=== PATIENT | male | born 1930 | race Caucasian/White ===

== ENCOUNTER 2017-03-28 12:33 | Inpatient (IN) | payer MEDICARE, BC ==
--- NOTE | 2017-03-28 12:54 | EDM.PDOC ---
ED HPI GENERAL MEDICAL PROBLEM - General Stated Complaint: ER Time Seen by Provider: 03/28/17 12:40 Source of Information: Reports: EMS History Limitations: Reports: Altered Mental Status - History of Present Illness INITIAL COMMENTS - FREE TEXT/NARRATIVE: This 87 yo male patient was brought to the ED by [facility] from [facility] due to generalized weakness and low oxygen levels. EMS reports the patient had an oxygen saturation of 86% while on 3 liters per minute NC by concentrator. The patient was started on oxygen at 6 liters per minute by NC which brought his oxygen up to 95%. Upon arrival, the patient reports that he has been vomiting over the past couple of days and feeling very weak. The patient denies any specific areas of pain. Onset: Gradual Duration: Day(s):, Constant, Getting Worse Location: Reports: Generalized Severity: Severe Improves with: Reports: None Worsens with: Reports: None Associated Symptoms: Reports: Nausea/Vomiting, Weakness - Related Data Allergies Allergy/AdvReac Type Severity Reaction Status Date / Time aspirin Allergy Bleeding Verified 07/29/16 14:16 Home Meds: Home Meds Digoxin [Lanoxin] 0.125 mg PO DAILY 03/05/14 [History] Metoprolol Succinate 25 mg PO DAILY 03/05/14 [History] Omeprazole 20 mg PO DAILY 03/05/14 [History] Simvastatin [Zocor] 40 mg PO BEDTIME 03/05/14 [History] metFORMIN [Glucophage] 1,000 mg PO BID 03/05/14 [History] [place]-3S/DHA/Epa/Fish Oil [Fish Oil [place]-3 Softgel] 2 tab PO DAILY 04/25/16 [ History] Warfarin Sodium [Jantoven] 5 mg PO ASDIRECTED 06/08/16 [History] Acetaminophen [Tylenol] 1 tab PO QID 07/16/16 [History] fentaNYL [Fentanyl] 25 mcg TOP Q3D 07/16/16 [History] glipiZIDE [Glucotrol XL] 5 mg PO DAILY 07/16/16 [History] Furosemide [Lasix] 20 mg PO DAILY 07/29/16 [History] Hydrocodone/Acetaminophen [[place] 10-325 Tablet] 1 tab PO PRN 07/29/16 [History] Past Medical History HEENT History: Reports: Hard of Hearing, Impaired Vision Cardiovascular History: Reports: Afib, CAD, Heart Failure, High Cholesterol, Hypertension Respiratory History: Reports: None Gastrointestinal History: Reports: GERD Genitourinary History: Reports: Prostate Disorder Musculoskeletal History: Reports: None Neurological History: Reports: None Psychiatric History: Reports: None Endocrine/Metabolic History: Reports: Diabetes, Type II Hematologic History: Reports: None Immunologic History: Reports: None Oncologic (Cancer) History: Reports: None Dermatologic History: Reports: None - Infectious Disease History Infectious Disease History: Reports: None - Past Surgical History Cardiovascular Surgical History: Reports: Coronary Artery Bypass, Pacer Social & Family History - Family History Family Medical History: Noncontributory - Tobacco Use Smoking Status *Q: Never Smoker Second Hand Smoke Exposure: No - Caffeine Use Caffeine Use: Reports: Coffee - Alcohol Use Days Per Week of Alcohol Use: 0 - Recreational Drug Use Recreational Drug Use: No - Living Situation & Occupation Occupation: Retired ED ROS GENERAL - Review of Systems Review Of Systems: ROS reveals no pertinent complaints other than HPI. ED EXAM, GENERAL - Physical Exam Exam: See Below Exam Limited By: Altered Mental Status (very slow in responding) General Appearance: Alert, Moderate Distress, Thin Eye Exam: Bilateral Eye: EOMI, Normal Inspection, PERRL Ears: Normal External Exam, Normal Canal, Hearing Grossly Normal, Normal TMs Nose: Normal Inspection, Normal Mucosa, No Blood Throat/Mouth: Normal Inspection, Normal Lips, Normal Teeth, Normal Gums, Normal Oropharynx, Normal Voice, No Airway Compromise Head: Atraumatic, Normocephalic Neck: Normal Inspection, Supple, Non-Tender, Full Range of Motion Respiratory/Chest: No Respiratory Distress, Lungs Clear, Normal Breath Sounds, No Accessory Muscle Use, Chest Non-Tender, Decreased Breath Sounds Cardiovascular: Normal Peripheral Pulses, Regular Rate, Rhythm, No Gallop, No JVD, No Rub GI/Abdominal: Normal Bowel Sounds, Soft, Tender (generalizd tenderness to palpation) (Male) Exam: Deferred Rectal (Males) Exam: Deferred Back Exam: Normal Inspection, Full Range of Motion, NT Extremities: Normal Inspection, Normal Range of Motion, Non-Tender, Normal Capillary Refill, Pedal Edema Neurological: Alert, Oriented, CN II-XII Intact, Normal Cognition Psychiatric: Normal Affect, Normal Mood Skin Exam: Warm, Dry, Intact, Normal Color, No Rash Lymphatic: No Adenopathy Course - Vital Signs Last Recorded V/S: Last Vital Signs Temp 35.9 C 10/17/17 12:35 Pulse 74 03/28/17 12:35 Resp 40 H 03/28/17 12:35 BP 97/52 L 03/28/17 12:35 Pulse Ox 90 L 03/28/17 12:35 - Orders/Labs/Meds Orders: Active Orders 24 hr Category Date Time Status EKG Documentation Completion [RC] URGENT Care 03/28/17 12:40 Active Glucose [Blood Glucose Check, Bedside] [RC] ONETIME Care 03/28/17 12:59 Active CULTURE BLOOD [BC] Stat Lab 03/28/17 12:40 Received CULTURE BLOOD [BC] Stat Lab 03/28/17 12:45 Received Sodium Chloride 0.9% [Normal Saline] 1,000 ml Med 03/28/17 13:00 Active IV ASDIRECTED Blood Culture x2 Reflex Set [OM.PC] Stat Oth 03/28/17 12:40 Ordered Medication Orders Sodium Chloride (Normal Saline) 1,000 mls @ 250 mls/hr IV ASDIRECTED LISA Last Admin: 03/28/17 12:50 Dose: 250 mls/hr Labs: Laboratory Tests 03/28/17 03/28/17 03/28/17 Range/Units 12:40 12:40 12:40 WBC 23.4 H (5.0-10.0) 10^3/uL RBC 4.03 L (4.6-6.2) 10^6/uL Hgb 13.6 L (14.0-18.0) g/dL Hct 41.0 (40.0-54.0) % MCV 101.7 H D (80-100) fL MCH 33.7 (27.0-34.0) pg MCHC 33.2 (33.0-35.0) g/dL Plt Count 230 (150-450) 10^3/uL Neut % (Auto) 88.1 H (42.2-75.2) % Lymph % (Auto) 5.7 L (20.5-50.1) % [place] % (Auto) 5.8 (2-8) % Eos % (Auto) 0.2 L (1.0-3.0) % Baso % (Auto) 0.2 (0.0-1.0) % PT (9.0-12.0) SEC INR (0.9-1.2) Sodium 136 D (135-145) mmol/L Potassium 5.8 H (3.6-5.0) mmol/L Chloride 98 L (101-111) mmol/L Carbon Dioxide 22.0 (21.0-31.0) mmol/L Anion Gap 21.8 BUN 32 H (7-18) mg/dL Creatinine 1.7 H (0.6-1.3) mg/dL Est Cr Clr Drug Dosing TNP Estimated GFR (MDRD) 38 BUN/Creatinine Ratio 18.82 Glucose 168 H (74-105) mg/dL POC Glucose (83-110) mg/dl Lactic Acid 4.9 H (0.5-2.2) mmol/L Calcium 9.3 (8.4-10.2) mg/dl Total Bilirubin 1.8 H (0.2-1.0) mg/dL AST 57 H (10-42) IU/L ALT 32 (10-60) IU/L Alkaline Phosphatase 70 (42-121) IU/L Troponin I < 0.02 (0.00-0.02) ng/ml B-Natriuretic Peptide (0-100) pg/ml Total Protein 7.9 (6.7-8.2) g/dl Albumin 3.7 (3.2-5.5) g/dl Globulin 4.2 Albumin/Globulin Ratio 0.88 Urine Color (YELLOW) Urine Appearance (CLEAR) Urine pH (5.0-9.0) Ur Specific [place] (1.005-1.030) Urine Protein (NEGATIVE) Urine Glucose (UA) (NEGATIVE) Urine Ketones (NEGATIVE) Urine Occult Blood (NEGATIVE) Urine Nitrite (NEGATIVE) Urine Bilirubin (NEGATIVE) Urine Urobilinogen (0.2-1.0) mg/dL Ur Leukocyte Esterase (NEGATIVE) Urine RBC /HPF Urine WBC (0-5/HPF) /HPF Ur Epithelial Cells /HPF Amorphous Sediment (0/HPF) /HPF Urine Bacteria (0-FEW/HPF) /HPF Fine Granular Casts (0/LPF) /LPF 03/28/17 03/28/17 03/28/17 Range/Units 12:40 12:40 12:46 WBC (5.0-10.0) 10^3/uL RBC (4.6-6.2) 10^6/uL Hgb (14.0-18.0) g/dL Hct (40.0-54.0) % MCV (80-100) fL MCH (27.0-34.0) pg MCHC (33.0-35.0) g/dL Plt Count (150-450) 10^3/uL Neut % (Auto) (42.2-75.2) % Lymph % (Auto) (20.5-50.1) % Lan[place] % (Auto) (2-8) % Eos % (Auto) (1.0-3.0) % Baso % (Auto) (0.0-1.0) % PT 34.2 H (9.0-12.0) SEC INR 3.4 H (0.9-1.2) Sodium (135-145) mmol/L Potassium (3.6-5.0) mmol/L Chloride (101-111) mmol/L Carbon Dioxide (21.0-31.0) mmol/L Anion Gap BUN (7-18) mg/dL Creatinine (0.6-1.3) mg/dL Est Cr Clr Drug Dosing Estimated GFR (MDRD) BUN/Creatinine Ratio Glucose (74-105) mg/dL POC Glucose 154 H (83-110) mg/dl Lactic Acid (0.5-2.2) mmol/L Calcium (8.4-10.2) mg/dl Total Bilirubin (0.2-1.0) mg/dL AST (10-42) IU/L ALT (10-60) IU/L Alkaline Phosphatase (42-121) IU/L Troponin I (0.00-0.02) ng/ml B-Natriuretic Peptide 459 H (0-100) pg/ml Total Protein (6.7-8.2) g/dl Albumin (3.2-5.5) g/dl Globulin Albumin/Globulin Ratio Urine Color (YELLOW) Urine Appearance (CLEAR) Urine pH (5.0-9.0) Ur Specific [place] (1.005-1.030) Urine Protein (NEGATIVE) Urine Glucose (UA) (NEGATIVE) Urine Ketones (NEGATIVE) Urine Occult Blood (NEGATIVE) Urine Nitrite (NEGATIVE) Urine Bilirubin (NEGATIVE) Urine Urobilinogen (0.2-1.0) mg/dL Ur Leukocyte Esterase (NEGATIVE) Urine RBC /HPF Urine WBC (0-5/HPF) /HPF Ur Epithelial Cells /HPF Amorphous Sediment (0/HPF) /HPF Urine Bacteria (0-FEW/HPF) /HPF Fine Granular Casts (0/LPF) /LPF 03/28/17 Range/Units 14:32 WBC (5.0-10.0) 10^3/uL RBC (4.6-6.2) 10^6/uL Hgb (14.0-18.0) g/dL Hct (40.0-54.0) % MCV (80-100) fL MCH (27.0-34.0) pg MCHC (33.0-35.0) g/dL Plt Count (150-450) 10^3/uL Neut % (Auto) (42.2-75.2) % Lymph % (Auto) (20.5-50.1) % [place] % (Auto) (2-8) % Eos % (Auto) (1.0-3.0) % Baso % (Auto) (0.0-1.0) % PT (9.0-12.0) SEC INR (0.9-1.2) Sodium (135-145) mmol/L Potassium (3.6-5.0) mmol/L Chloride (101-111) mmol/L Carbon Dioxide (21.0-31.0) mmol/L Anion Gap BUN (7-18) mg/dL Creatinine (0.6-1.3) mg/dL Est Cr Clr Drug Dosing Estimated GFR (MDRD) BUN/Creatinine Ratio Glucose (74-105) mg/dL POC Glucose (83-110) mg/dl Lactic Acid (0.5-2.2) mmol/L Calcium (8.4-10.2) mg/dl Total Bilirubin (0.2-1.0) mg/dL AST (10-42) IU/L ALT (10-60) IU/L Alkaline Phosphatase (42-121) IU/L Troponin I (0.00-0.02) ng/ml B-Natriuretic Peptide (0-100) pg/ml Total Protein (6.7-8.2) g/dl Albumin (3.2-5.5) g/dl Globulin Albumin/Globulin Ratio Urine Color Yellow (YELLOW) Urine Appearance Slightly cloudy (CLEAR) Urine pH 5.5 (5.0-9.0) Ur Specific [place] 1.015 (1.005-1.030) Urine Protein 30 H (NEGATIVE) Urine Glucose (UA) Negative (NEGATIVE) Urine Ketones Trace H (NEGATIVE) Urine Occult Blood Negative (NEGATIVE) Urine Nitrite Negative (NEGATIVE) Urine Bilirubin Small H (NEGATIVE) Urine Urobilinogen 2.0 H (0.2-1.0) mg/dL Ur Leukocyte Esterase Negative (NEGATIVE) Urine RBC 5-10 H /HPF Urine WBC 0-5 (0-5/HPF) /HPF Ur Epithelial Cells Rare /HPF Amorphous Sediment Few (0/HPF) /HPF Urine Bacteria Few (0-FEW/HPF) /HPF Fine Granular Casts Few H (0/LPF) /LPF Meds: Medications Generic Name Dose Route Start Last Admin Trade Name Freq PRN Reason Stop Dose Admin Sodium Chloride 1,000 mls @ 250 mls/hr 03/28/17 13:00 03/28/17 12:50 Normal Saline IV 250 mls/hr ASDIRECTED LISA Administration - Re-Assessments/Exams Free Text/Narrative Re-Assessment/Exam: 03/28/17 13:44 The patient had a large loose bowel movement while in the ED. Nursing staff assisted the patient in cleaning up. Departure - Departure Time of Disposition: 15:02 Disposition: Admitted As Inpatient 67 Condition: Poor Clinical Impression: Gastroenteritis, Hyperkalemia - Discharge Information Care Plan Goals: Discussed the patient's history, labs, EKG, CT and x-ray results with Dr. Fish. Dr. Fish accepted the patient for continued evaluation and further management as an inpatient at [facility] in [place]. - My Orders Last 24 Hours: My Active Orders 03/28/17 12:40 EKG Documentation Completion [RC] URGENT CULTURE BLOOD [BC] Stat Blood Culture x2 Reflex Set [OM.PC] Stat 03/28/17 12:45 CULTURE BLOOD [BC] Stat 03/28/17 12:59 Glucose [Blood Glucose Check, Bedside] [RC] ONETIME 03/28/17 13:00 Sodium Chloride 0.9% [Normal Saline] 1,000 ml IV ASDIRECTED - Assessment/Plan Last 24 Hours: My Active Orders 03/28/17 12:40 EKG Documentation Completion [RC] URGENT CULTURE BLOOD [BC] Stat Blood Culture x2 Reflex Set [OM.PC] Stat 03/28/17 12:45 CULTURE BLOOD [BC] Stat 03/28/17 12:59 Glucose [Blood Glucose Check, Bedside] [RC] ONETIME 03/28/17 13:00 Sodium Chloride 0.9% [Normal Saline] 1,000 ml IV ASDIRECTED
[2017-03-28] MEDS ORDERED: Sodium Chloride 0.9% 1,000 ML IV SCH (13:00)
[2017-03-28 13:18] LABS: CHLORIDE,CL 98 mmol/L (101-111); SODIUM,NA 136 mmol/L (135-145)
[2017-03-28] MEDS ORDERED: Furosemide 20 MG/2 ML VIAL IVPUSH ONE (17:11)
[2017-03-28] MEDS: Sodium Chloride 0.9% 1,000 ML IV SCH (17:38)
[2017-03-28] MEDS ORDERED: [UNRECOGNIZED DRUG - REMARK] PO ONE (18:00)
[2017-03-28] MEDS ORDERED: Ondansetron 4 MG/2 ML SDV IV PRN (19:04)
[2017-03-28] MEDS: Acetaminophen 325 MG Tab PO SCH (21:00)
[2017-03-28] MEDS: Metoprolol Tartrate 25 MG Tab PO SCH (21:03)
[2017-03-28] MEDS: Gabapentin 100 MG Cap PO SCH (21:03)
[2017-03-29] MEDS ORDERED: Sodium Chloride 0.9% 1,000 ML IV ONE ×2 (03:17→04:23)
[2017-03-29] MEDS ORDERED: Albumin 5% 250 ML IV ONE ×2 (04:56→08:00)
[2017-03-29] MEDS: Sodium Chloride 0.9% 1,000 ML IV SCH ×2 (05:36→17:17)
[2017-03-29] MEDS ORDERED: Sodium Chloride 0.9% 1,000 ML IV SCH (10:00)
[2017-03-29] MEDS: Furosemide 20 MG/2 ML VIAL IVPUSH SCH (10:07)
[2017-03-29] MEDS: Metoprolol Tartrate 25 MG Tab PO SCH (10:15)
[2017-03-29] MEDS: DULoxetine 30 MG Cap PO SCH (10:16)
[2017-03-29] MEDS: Gabapentin 100 MG Cap PO SCH ×2 (10:16→15:12)
[2017-03-29] MEDS: Omeprazole 20 MG Cap.CR PO SCH (10:16)
[2017-03-29] MEDS: Acetaminophen 325 MG Tab PO SCH ×2 (10:16→15:12)
[2017-03-29] MEDS ORDERED: Loperamide 2 MG Cap PO PRN (10:23)
[2017-03-29] MEDS ORDERED: Sodium Chloride 0.9% 500 ML IV ONE ×2 (10:30→11:30)
[2017-03-29] MEDS: Ciprofloxacin in D5W 400 MG in Premix Bag 1 BAG IV SCH ×2 (11:16)
[2017-03-29] MEDS: metroNIDAZOLE/Normal Saline 500 MG in Premix Bag 100 BAG IV SCH ×2 (11:16→17:18)
--- NOTE | 2017-03-29 13:20 | PN ---
DOS: 03/29/2017 HISTORY OF PRESENT ILLNESS: Mr. Kenan Glaser is an 87-year-old man, admitted from [facility] with weakness, diarrhea, nausea, and vomiting. He was found to be hypoxic on 3 L/minute of oxygen. The patient later became severely hypotensive, was having profuse diarrhea. He was admitted. REVIEW OF SYSTEMS: The patient indicated that he feels better. He denies abdominal pain. No longer vomiting, but still has some diarrhea. No chest pain. No fever. OBJECTIVE: General: The patient is alert and oriented to place, time, and person. Head: Atraumatic and normocephalic. Chest: Diminished breath sounds bilaterally. Cardiovascular System: Regular rate and rhythm. The patient is hypotensive. Abdomen: Vague discomfort on palpation. No rebound tenderness. Extremities: 1+ pedal edema. Vital Signs: Reviewed. Blood pressure is low, systolic now between 80 and 110. LABORATORY DATA: Lactate was 4.9, but it is now down to 2.6. INR is 3.3. White count is 16.5. CT scan of abdomen reviewed, showed possible colitis. There is [id number] nonspecific changes in the large and small bowel, was suggestive of viral enterocolitis or other infectious enterocolitis. ASSESSMENT: 1. Sepsis. The patient is hypotensive. Has elevated serum lactate. Has marked leukocytosis. Because of the sepsis, another differential diagnosis includes Clostridium difficile colitis given the elevated white cell count. Could also be viral gastroenteritis. 2. Colitis. The patient has nausea, vomiting, and diarrhea. CT scan suggest enterocolitis, possibly viral. It could also be Clostridium difficile. 3. Chronic anticoagulation. INR is supratherapeutic at 3.3. 4. History of congestive heart failure. Clinically, the patient is quite hypotensive at this point. Does have some edema. Will need to be hydrated cautiously. 5. History of hypertension. Hypotensive at this point. 6. Atrial fibrillation, rate controlled. 7. Dyslipidemia. 8. Diabetes mellitus. Blood sugar is within acceptable limit. PLAN: 1. Stool for Clostridium difficile toxin pending. 2. Start the empiric antibiotics, intravenous ciprofloxacin and intravenous Flagyl. 3. Obtain repeat serum lactate every 3 hours. 4. Intravenous fluid bolus given 2.5 L. we will go ahead and give another liter. This needs to be done cautiously because of his history of CHF. He has had low threshold for transferring this patient to a higher level of care. [facility] /[id number]
[2017-03-29] MEDS: Midodrine 2.5 MG Tab PO SCH ×2 (15:58→17:17)
[2017-03-29] MEDS ORDERED: Furosemide 40 MG/4 ML VIAL IVPUSH ONE (23:03)
[2017-03-30] MEDS: Gabapentin 100 MG Cap PO SCH ×4 (00:19→20:28)
[2017-03-30] MEDS: Ciprofloxacin in D5W 400 MG in Premix Bag 1 BAG IV SCH ×4 (00:19→08:32)
[2017-03-30] MEDS: Acetaminophen 325 MG Tab PO SCH ×4 (00:19→20:28)
[2017-03-30] MEDS: metroNIDAZOLE/Normal Saline 500 MG in Premix Bag 100 BAG IV SCH ×3 (01:27→17:11)
[2017-03-30] MEDS: fentaNYL 25 MCG/HR Transdermal Patch TOP SCH (07:58)
[2017-03-30] MEDS: CHECK FENTANYL TRDERM SCH (08:01)
[2017-03-30] MEDS: Furosemide 20 MG/2 ML VIAL IVPUSH SCH (08:30)
[2017-03-30] MEDS: DULoxetine 30 MG Cap PO SCH (08:37)
[2017-03-30] MEDS: Midodrine 2.5 MG Tab PO SCH ×3 (08:37→17:09)
[2017-03-30] MEDS: Omeprazole 20 MG Cap.CR PO SCH (08:38)
--- NOTE | 2017-03-30 09:53 | HP ---
CHIEF COMPLAINT: Vomiting and diarrhea. BRIEF HISTORY OF PRESENT ILLNESS: Mr. Glaser is an 87-year-old gentleman who resides at the [facility]. He presented to the emergency room because of generalized weakness. The staff at [facility] had noted that his oxygen saturations were low, and he was placed on supplemental oxygen with improvement. On arrival, the patient stated he had been vomiting, and for the last couple of days, he was feeling weak. He denied any other symptoms of concern. While he was being taken to Radiology for CAT scan, he suddenly had voluminous loose watery stools. His presentation was reviewed with the ER provider, and Mr. Glaser was admitted for further management. PAST MEDICAL HISTORY: Atrial fibrillation. Coronary artery disease with 5- vessel bypass as well as an NSTEMI. Type 2 diabetes, which apparently is diet controlled at this time. Dyslipidemia. Diverticulosis. GERD. Congestive heart failure. Pulmonary interstitial fibrosis. Status post cardiac pacemaker placement. Multiple compression fractures. Osteoporosis. Hyponatremia. PAST SURGICAL HISTORY: Five-vessel coronary artery bypass graft and cholecystectomy. SOCIAL HISTORY: He is . His approximately a year and a half ago. He then moved from their farm in the [facility] to the [facility]. 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 He has 4 children, 1 son is and has 2 living sons and 1 daughter, 6 grandchildren, and 2 great grandchildren. He is an ex-smoker who stopped smoking in May . Prior to that, he had smoked 1 pack a day for 10 years. Does not drink alcohol on a regular basis. IMMUNIZATION HISTORY: PCV13 on 11/27/2015. High-dose influenza on 03/15/2016. REVIEW OF SYSTEMS: Although in the ER, he had said he felt well, he had felt unwell for several days. On arrival on the floor, he said that he felt well until this morning. He has vomited about 4 to 5 times over the course of the day. He said he usually tends toward constipation, but after arrival in the ER, he has had multiple voluminous watery stools. He denied any chest pain or shortness of breath. He denied any abdominal pain. No blood by mouth or rectum. No recent falls or injuries. Denied any recent use of antibiotics. No change in appetite or weight. No recent change in bowel or bladder habits until today. No dysuria. In the Emergency Department, a Blake catheter was placed, and as of 6:00 p.m., he had 175 mL out following a 1 L fluid bolus. PHYSICAL EXAMINATION: General: He is an elderly gentleman, who was dozing but awoke easily. He was confused at times, somewhat disoriented, but asked where he was. He denied pain at the time of the interview. He otherwise was stable. Vital Signs: Blood pressure 104/45 on the left, 95/53 on the right; pulse 67 and regular; respiratory rate 20 and unlabored; oxygen saturation 95% on 2 L; and temperature was 98.1. Weight 164 pounds 3.2 ounces. Height 6 feet. HEENT: Unremarkable. Neck was supple. No meningeal signs. Sclerae were not icteric. Conjunctivae were not injected. Mouth showed moist mucous membranes. Neck: Showed no JVDs or bruits. There was no adenopathy. No thyromegaly. Chest: Showed clear but diminished bilateral breath sounds without wheezes, rales, or rhonchi. Heart: Showed a regular rate and rhythm with a holosystolic murmur. Abdomen: Soft with hypoactive bowel sounds. There was some diffuse mild tenderness in the upper abdomen without guarding or rebound. Extremities: Showed some mild pitting edema. Peripheral pulses were palpable. Neurological Exam: He is grossly intact. PERTINENT LABS AND X-RAYS: CBC showed an elevated white count of 23.4, hemoglobin and hematocrit 13.6 and 41 with an MCV of 101.7, platelets were 230,000. INR was elevated at 3.4. Chemistry showed sodium 136 and potassium 5.8. He has had elevated potassiums in the past as well. BUN and creatinine 32 and 1.7 with a GFR of 38. These numbers were essentially unchanged from a previous visit. Nonfasting blood sugar 168, on repeat 154. Total bilirubin 1.8. AST was slightly elevated at 57. Otherwise, remainder of the LFTs were unremarkable. Troponin was less than 0.02. BNP was mildly elevated at 459. Lactic acid was elevated at 4.9 (0.5-2.2). Urinalysis showed slightly cloudy yellow urine with specific gravity of 1.015. Negative for nitrites and leukocyte esterase. There were 5 to 10 rbc's per high- power field, 0 to 5 wbc's per high-power field, and few bacteria. Two sets of blood cultures were ordered and drawn. Single-view chest x-ray had been performed in the Emergency Department and showed pulmonary vascular congestion with perihilar edema, but no acute infiltrates. A 12-lead EKG showed a ventricular paced rhythm with a ventricular rate of 68. Left axis deviation. No other comments are made. A CT scan of the abdomen and pelvis was performed without the use of IV contrast. There were multiple dilated loops of large and small intestine. Dilated small bowel loops were present from the upper abdomen to the lower pelvis. Large intestine was filled with fluid and gas rather than stool. There were gas-fluid levels. There was no specific transition point or obstructing lesion identified. There is no evidence for any other acute process. There was left inguinal hernia with a corner of the urinary bladder within the inguinal canal. There were bilateral pleural effusions. Impression was that of mild-to- moderate nonspecific changes to the large and small intestines, which probably represented viral enterocolitis or other infectious enteritis/colitis. IMPRESSION: An 87-year-old gentleman with past medical history as above, presents with an illness of recent onset consisting of several episodes of vomiting over the course of the day and now with large voluminous watery stools. PLAN: 1. In the Emergency Department, he had received 1 L of normal saline. IV fluids were continued with normal saline at 50 mL an hour. We will carefully monitor his urinary output. Because of his history of congestive heart failure and the x-ray evidence for some mild pulmonary venous congestion, he was given furosemide 20 mg IV push after he was admitted to the floor and then he will continue on 20 mg IV push daily. We will carefully monitor his electrolytes. 2. His usual medications will be continued. 3. He is on Coumadin and INR is elevated. No additional pharmacological VTE prophylaxis will be added. We will check the Coumadin on a daily basis, and Pharmacy will dose the Coumadin. 4. He later complained of some mild nausea and orders written for ondansetron 4 mg IV every 6 hours p.r.n. 5. Repeat lab work was ordered for the morning including a CBC with differential and a BMP. We will repeat the lactic acid as well. 6. Multiple stool studies were ordered including C. difficile, stool culture, E. coli culture, H. pylori, Hemoccult, stool culture with Shigella toxin, and fecal lactoferrin. The only test which had returned this evening was the Hemoccult, which returned positive. The result is nonspecific. At the time of admission, he was not immediately started on an antibiotic until there was more proof of infectious illness. I did speak to the incoming hospitalist about this. We had debated starting Cipro and Flagyl at the time of admission, but preferred to postpone this until we had more clinical data. I spoke with the hospitalist, and he will start the patient on IV antibiotics. Code status was discussed directly with Mr. Glaser, and he does not wish any cardiopulmonary resuscitation or transfer at this time. Order was written for DNR/DNI code status. CONDITION AT THE TIME OF ADMISSION: Relatively stable. Multiple labs remain outstanding to further help define this acute gastrointestinal illness. [facility] /[id number]
--- NOTE | 2017-03-30 12:40 | PN ---
DATE: 03/30/2017 SUBJECTIVE: The patient did have some shortness of breath, they had him placed on supplemental oxygen, was tachypneic. Developed bilateral lower extremity edema. No fever. His blood pressure continues to be borderline. REVIEW OF SYSTEMS: Constitutional, cardiac, respiratory, gastrointestinal, and genitourinary system were reviewed. No other pertinent findings. OBJECTIVE: General: The patient is alert, oriented to place, time, and person. Head: Atraumatic and normocephalic. Ears, Nose, and Throat: Unremarkable. Chest: Diminished breath sounds bilaterally. Crackles. Cardiovascular System: Regular rate and rhythm. Abdomen: Soft, nontender. Extremities: Bilateral lower extremity edema. LABORATORY DATA: Serum lactate is elevated at 2.4. Microbiology, stool cultures growing gram-positive cocci in clusters, thought to be possibly Staph aureus. ASSESSMENT: 1. Sepsis. This is likely secondary to gastrointestinal illness. Stool for Clostridium difficile toxin is negative. 2. Colitis. Noted on CT scan. This is probably due to bacterial colitis. Stool cultures growing Staphylococcus aureus, which is a cause of colitis. 3. Chronic anticoagulation. INR is therapeutic. 4. Hypertension. 5. Acute exacerbation of congestive heart failure. This is likely iatrogenic. He probably has diastolic congestive heart failure. 6. Atrial fibrillation. Rate is controlled. 7. Dyslipidemia. 8. Diabetes mellitus. Blood sugar is reasonable. PLAN: 1. Discontinue ciprofloxacin. 2. Continue Flagyl for now. 3. Add intravenous vancomycin. 4. Discontinue IV fluids. 5. Start intravenous Lasix 20 mg daily. 6. Obtain repeat basic metabolic panel. 7. Obtain repeat CBC. Discussed with family. 8. Check serum lactate. [facility] /[id number]
[2017-03-30] MEDS ORDERED: Warfarin 5 MG Tab PO ONE (14:00)
[2017-03-31] MEDS: metroNIDAZOLE/Normal Saline 500 MG in Premix Bag 100 BAG IV SCH ×4 (01:02→17:16)
[2017-03-31] MEDS: Omeprazole 20 MG Cap.CR PO SCH (05:51)
[2017-03-31 06:33] LABS: CHLORIDE,CL 103 mmol/L (101-111); SODIUM,NA 135 mmol/L (135-145)
[2017-03-31] MEDS: DULoxetine 30 MG Cap PO SCH (08:48)
[2017-03-31] MEDS: Midodrine 2.5 MG Tab PO SCH ×4 (08:48→17:15)
[2017-03-31] MEDS: Gabapentin 100 MG Cap PO SCH ×3 (08:49→22:48)
[2017-03-31] MEDS: Acetaminophen 325 MG Tab PO SCH ×3 (08:50→22:48)
[2017-03-31] MEDS: Sodium Chloride 0.9% 10 ML Syringe FLUSH PRN ×4 (08:51→17:06)
[2017-03-31] MEDS: Furosemide 20 MG/2 ML VIAL IVPUSH SCH (08:51)
[2017-03-31] MEDS ORDERED: Furosemide 20 MG/2 ML VIAL IVPUSH ONE (09:36)
--- NOTE | 2017-03-31 11:19 | PN ---
DATE: 03/31/2017 SUBJECTIVE: The patient appears short of breath this morning. Worse with activity. Still needing supplemental oxygen. He is a little tachypneic. No significant cough. Had 1 loose stool. Appears weak. REVIEW OF SYSTEMS: Constitutional, cardiac, respiratory, gastrointestinal, genitourinary, neurologic, psychiatric were reviewed. No other pertinent findings. OBJECTIVE: Vital Signs: Blood pressure is 129/66, pulse 86 per minute, respiratory rate 24 per minute, and oxygen saturation is 95% on 2 L. General: The patient is alert, oriented to place, time, and person. Head: Atraumatic and normocephalic. Chest: Diminished breath sounds bilaterally. He has crackles at the lung bases. CVS: Regular rate and rhythm. Abdomen: Vague discomfort on palpation. No rebound tenderness. Extremities: Trace edema. LABORATORY DATA: White count is down to 7.7, hemoglobin 9.6, INR is 1.9. Lactate is normal at 1.2. ASSESSMENT: 1. Sepsis. Likely due to gastrointestinal illness. Stool for clostridium difficile toxin is negative. Stool culture is growing beta-hemolytic Gram positive cocci, likely Staph aureus. 2. Colitis. Probably due to bacterial colitis. Again, stool culture is growing Staphylococcus aureus. It is unclear if this overlays Methicillin- resistant Staphylococcus aureus or not. 3. Chronic anticoagulation, INR is therapeutic. 4. Hypertension. Blood pressure is within normal limits. 5. Acute exacerbation of probably diastolic congestive heart failure. The patient is decompensated from iatrogenic fluid administration. 6. Atrial fibrillation. Rate is controlled. 7. Dyslipidemia. 8. Diabetes mellitus. Blood sugar is reasonable. PLAN: 1. Discontinue . 2. Start patient on general diet. 3. Physical therapy. 4. Occupational therapy. 5. Increase intravenous Lasix to 40 mg every 24 hours. 6. Give extra 20 mg of Lasix now. 7. Obtain repeat basic metabolic panel. 8. For now I will keep the patient on vancomycin and Flagyl until I get further identification of the Staph aureus. I would like to keep the patient on Flagyl to cover for colitis for now. [facility] /[id number]
[2017-03-31] MEDS ORDERED: Warfarin 5 MG Tab PO ONE (14:00)
[2017-04-01] MEDS: metroNIDAZOLE/Normal Saline 500 MG in Premix Bag 100 BAG IV SCH (01:44)
[2017-04-01] MEDS: Omeprazole 20 MG Cap.CR PO SCH (06:03)
[2017-04-01 06:24] LABS: CHLORIDE,CL 101 mmol/L (101-111); SODIUM,NA 136 mmol/L (135-145)
[2017-04-01] MEDS: Furosemide 40 MG/4 ML VIAL IVPUSH SCH (08:46)
[2017-04-01] MEDS: Sodium Chloride 0.9% 10 ML Syringe FLUSH PRN (08:46)
[2017-04-01] MEDS: Acetaminophen 325 MG Tab PO SCH ×3 (08:47→21:42)
[2017-04-01] MEDS: Midodrine 2.5 MG Tab PO SCH (08:49)
[2017-04-01] MEDS: Gabapentin 100 MG Cap PO SCH ×3 (08:49→21:43)
[2017-04-01] MEDS: DULoxetine 30 MG Cap PO SCH (08:49)
[2017-04-01] MEDS ORDERED: Potassium Chloride 10 MEQ Tab.ER PO ONE (09:04)
[2017-04-01] MEDS: metroNIDAZOLE 250 MG Tab PO SCH ×2 (09:48→17:36)
[2017-04-01] MEDS: Doxycycline 100 MG Cap PO SCH ×2 (09:49→21:42)
--- NOTE | 2017-04-01 11:11 | PN ---
DATE: 04/01/2017 SUBJECTIVE: The patient offers no new complaints today. Still needing supplemental oxygen. He is still on 2 L/min. Shortness of breath is better. Diarrhea has improved. Still weak. REVIEW OF SYSTEMS: Respiratory, gastrointestinal, cardiac, neurologic, and psychiatric reviewed. No other pertinent findings except as noted above. OBJECTIVE: General: Alert and oriented to place, time, and person. Head: Atraumatic and normocephalic. Chest: Diminished breath sounds bilaterally. Crackles at the lung bases, especially at the left side. Cardiovascular System: Regular rate and rhythm. Abdomen: Soft and nontender. Extremities: No significant edema. LABORATORY DATA: White count is normal. INR is normal. He is therapeutic at 2.3 today. ASSESSMENT: 1. Sepsis, likely due to gastrointestinal illness. Stool culture grew beta- hemolytic Gram-positive cocci, likely Staphylococcus aureus. 2. Colitis. It is likely bacterial colitis. 3. Chronic anticoagulation. INR is therapeutic. 4. Hypertension. Blood pressure is within acceptable limit. 5. Acute exacerbation of diastolic congestive heart failure. The patient was decompensated as a result of iatrogenic air-fluid administration. 6. Atrial fibrillation. 7. Dyslipidemia. PLAN: 1. Discontinue intravenous vancomycin. 2. Discontinue intravenous Flagyl. 3. Start oral Flagyl 500 mg three times a day. 4. Start doxycycline 100 mg b.i.d. 5. Physical therapy. 6. Occupational therapy. 7. Remove Blake catheter. 8. Continue intravenous fluids for now. 9. Chart reviewed. Discussed with the emergency room provider. [facility] /[id number]
[2017-04-01] MEDS ORDERED: Warfarin 5 MG Tab PO ONE (14:00)
[2017-04-02] MEDS: metroNIDAZOLE 250 MG Tab PO SCH ×3 (00:15→17:17)
[2017-04-02] MEDS: CHECK FENTANYL TRDERM SCH (06:27)
[2017-04-02] MEDS: fentaNYL 25 MCG/HR Transdermal Patch TOP SCH (06:27)
[2017-04-02] MEDS: Omeprazole 20 MG Cap.CR PO SCH (06:30)
[2017-04-02] MEDS: Acetaminophen 325 MG Tab PO SCH ×3 (08:25→20:48)
[2017-04-02] MEDS: Doxycycline 100 MG Cap PO SCH ×2 (08:25→20:48)
[2017-04-02] MEDS: Gabapentin 100 MG Cap PO SCH ×3 (08:25→20:47)
[2017-04-02] MEDS: DULoxetine 30 MG Cap PO SCH (08:25)
[2017-04-02] MEDS: Furosemide 40 MG/4 ML VIAL IVPUSH SCH (08:26)
[2017-04-02] MEDS: Sodium Chloride 0.9% 10 ML Syringe FLUSH PRN ×2 (08:30→20:59)
--- NOTE | 2017-04-02 11:08 | PN ---
DATE: 04/02/2017 SUBJECTIVE: Today, the patient offers no new complaints. Still needing supplemental oxygen, but down to 1 L/minute. Denies shortness of breath except when he ambulates for long distance. He is still weak. Has trouble getting out of bed. REVIEW OF SYSTEMS: Cardiac, gastrointestinal, respiratory, neurologic and psychiatric are reviewed. OBJECTIVE: General: Alert and oriented to place, time, and person. HEENT: Head is atraumatic and normocephalic. Chest: Diminished breath sounds bilaterally. Crackles in the lung bases. CVS: Regular rate and rhythm. Abdomen: Soft and nontender. Extremities: Trace edema. LABORATORY DATA: INR is therapeutic. ASSESSMENT: 1. Sepsis. This is likely due to gastrointestinal illness. Blood cultures have been negative. Stool culture grew out org that looks like Staph. 2. Colitis. Stool for clostridium difficile toxin was negative, likely bacterial colitis. 3. Chronic anticoagulation. INR is therapeutic today. 4. Hypertension. Blood pressure is within acceptable limits. 5. Acute exacerbation of congestive heart failure. This was secondary to iatrogenic fluid administration. 6. Atrial fibrillation. 7. Dyslipidemia. PLAN: 1. Continue intravenous Lasix. 2. Obtain basic metabolic panel. 3. CBC. 4. Continue antibiotics for now. 5. Physical Therapy. 6. Occupational therapy. [facility] /[id number] MTDD
[2017-04-02] MEDS ORDERED: Warfarin 5 MG Tab PO ONE (14:00)
[2017-04-03] MEDS: metroNIDAZOLE 250 MG Tab PO SCH ×2 (00:05→08:44)
[2017-04-03] MEDS: Omeprazole 20 MG Cap.CR PO SCH (06:12)
[2017-04-03 06:36] LABS: CHLORIDE,CL 98 mmol/L (98-109); SODIUM,NA 139 mmol/L (138-146)
[2017-04-03 08:43] VITALS: BP 109/59
[2017-04-03] MEDS: Sodium Chloride 0.9% 10 ML Syringe FLUSH PRN (08:43)
[2017-04-03] MEDS: Furosemide 40 MG/4 ML VIAL IVPUSH SCH (08:44)
[2017-04-03] MEDS: Gabapentin 100 MG Cap PO SCH (08:44)
[2017-04-03] MEDS: Doxycycline 100 MG Cap PO SCH (08:45)
[2017-04-03] MEDS: DULoxetine 30 MG Cap PO SCH (08:45)
[2017-04-03] MEDS: Acetaminophen 325 MG Tab PO SCH (08:45)
--- NOTE | 2017-04-03 12:21 | EKG ---
03/28/2017 - MACHELLE LEIGH - This 12-lead EKG shows a ventricular paced complex and left axis deviation. No further comments are made. [facility] /[id number]
--- NOTE | 2017-04-04 03:22 | DISCH ---
FINAL DIAGNOSES: 1. Sepsis likely due to colitis. 2. Acute colitis suspected to be bacterial. 3. Chronic anticoagulation. 4. Hypertension. 5. Acute exacerbation of diastolic congestive heart failure. 6. Atrial fibrillation. 7. Dyslipidemia. SUMMARY OF HOSPITAL COURSE: Mr. Kenan Glaser presented with abdominal pain, profuse diarrhea, and generalized weakness. He was found to have significant leukocytosis. White count of 24,000. His lactate was also elevated up to 4.7. The patient got admitted to the hospital with sepsis thought to be due to colitis. He continued to be hypotensive and received a lot of intravenous fluids. He received more than 4 L of fluids. He also received intravenous albumin and eventually his blood pressure did improve. We will start the patient on intravenous antibiotics, ciprofloxacin and Flagyl. Stool for C difficile toxin was negative as well as ova and parasite. His stool culture however, came back positive with beta-hemolytic Gram-positive cocci suspected to be Staph aureus. Because of this, we had the patient on intravenous vancomycin and later switched to doxycycline. His diarrhea has subsided. The abdominal pain has improved. He has remained afebrile. We did obtain a chest x-ray and there was no evidence of pneumonia. Blood cultures have also remained negative. The patient's symptoms have improved. However, he is still weak and still requiring oxygen supplementation. Because of aggressive intravenous fluid administration, the patient became fluid overloaded. We had to put him back on intravenous Lasix. His requirement of oxygen is decreasing. The patient is having side effects from the medications especially Flagyl. He does have nausea, intermittently throws up after taking that medication. Because of that, we have discontinued it. I will discharge the patient from the hospital, and he will be admitted to swing bed. We will monitor the patient closely to make sure that he does not have recurrence of symptoms. All antibiotics will be discontinued at this point. His white cell count is back to normal. PHYSICAL EXAMINATION: General: At discharge, the patient is alert, oriented to place, time, and person. Head: Atraumatic and normocephalic. Chest: Diminished breath sounds bilaterally. Few crackles at the lung bases. CVS: Regular rate and rhythm. Abdomen: Soft, nontender. Extremities: No edema. [facility] /[id number] ANIYAH
[2017-04-04] MEDS ORDERED: Furosemide 40 MG Tab PO SCH (09:00)
== END 2017-04-03 09:17 | disposition swing bed (61) | DRG 872 ==
LOC: DL.ED 12:33 → UNDOADMIN 15:08 → DL.MS 15:08
PROVIDERS: ADMIT Internal Medicine; ATTEND Internal Medicine
DX: E87.6 Hypokalemia (principal); K52.9 Noninfective gastroenteritis and colitis, unspecified; A41.9 Sepsis, unspecified organism; I25.810 Atherosclerosis of coronary artery bypass graft(s) without angina pectoris; A04.8 Other specified bacterial intestinal infections; B95.61 Methicillin susceptible Staphylococcus aureus infection as the cause of diseases classified elsewhere; E87.5 Hyperkalemia; I11.0 Hypertensive heart disease with heart failure; E78.00 Pure hypercholesterolemia, unspecified; I50.9 Heart failure, unspecified; N42.9 Disorder of prostate, unspecified; I48.91 Unspecified atrial fibrillation; E78.5 Hyperlipidemia, unspecified; E11.9 Type 2 diabetes mellitus without complications; R53.1 Weakness; I25.2 Old myocardial infarction; Z95.0 Presence of cardiac pacemaker; K21.9 Gastro-esophageal reflux disease without esophagitis; Z66 Do not resuscitate; H54.7 Unspecified visual loss; H91.90 Unspecified hearing loss, unspecified ear; Z88.8 Allergy status to other drugs, medicaments and biological substances; Z79.01 Long term (current) use of anticoagulants; Z79.84 Long term (current) use of oral hypoglycemic drugs; Z79.899 Other long term (current) drug therapy
CPT/HCPCS: 36415; 71010; 74176; 80053; 81001; 82272; 82962 ×2; 83605; 83630; 83880; 84484; 85025; 85610; 87040 ×2; 87045; 87338; 87493; 87899 ×2; 93005; 93010; 96360; 96361; 99284; 99285; J7030; 51701; 51702; 80048; 85004; 87046; 97116-GP; 97166-GO; 97530-GO; A9270-GY; J0744; J1940; J3370; J7040; J7050; P9045

== ENCOUNTER 2017-04-03 09:17 | Inpatient (IN) | payer MEDICARE, BC ==
[2017-04-03] MEDS ORDERED: Ondansetron 4 MG/2 ML SDV IVPUSH PRN (10:32)
[2017-04-03] MEDS ORDERED: Ondansetron 4 MG Tab.DIS PO PRN (10:32)
[2017-04-03] MEDS ORDERED: Acetaminophen 325 MG Tab PO PRN (10:32)
[2017-04-03] MEDS ORDERED: Betamethasone Dipropionate/Clotrimazole 0.05-1% Crm 15 GM Tube TOP SCH (11:00)
[2017-04-03] MEDS ORDERED: Sodium Chloride 0.65% Nasal Spray 45 ML Bottle NAS PRN (12:30)
[2017-04-03] MEDS: Gabapentin 100 MG Cap PO SCH ×2 (13:40→20:39)
[2017-04-03] MEDS: Acetaminophen 325 MG Tab PO SCH ×2 (13:41→20:39)
[2017-04-03] MEDS ORDERED: IPRATROPIUM BROMIDE NASBOTH SCH (14:00)
[2017-04-03] MEDS ORDERED: Warfarin 5 MG Tab PO ONE (14:00)
[2017-04-03] MEDS ORDERED: Warfarin 2.5 MG Tab PO SCH (14:00)
[2017-04-03] MEDS: Simvastatin 40 MG Tab PO SCH (20:38)
[2017-04-03] MEDS: Calcium Carbonate/Vitamin D3 1250 MG-200 Unit Tab PO SCH (20:39)
[2017-04-03] MEDS: Docusate Sodium 100 MG Cap PO SCH (20:39)
[2017-04-03] MEDS: Check Patch TRDERM SCH (20:40)
[2017-04-04] MEDS: Omeprazole 20 MG Cap.CR PO SCH (06:18)
[2017-04-04] MEDS: Calcium Carbonate/Vitamin D3 1250 MG-200 Unit Tab PO SCH ×2 (08:25→20:34)
[2017-04-04] MEDS: Docusate Sodium 100 MG Cap PO SCH ×2 (08:26→20:35)
[2017-04-04] MEDS: Check Patch TRDERM SCH ×2 (08:26→21:16)
[2017-04-04] MEDS: Gabapentin 100 MG Cap PO SCH ×3 (08:27→20:35)
[2017-04-04] MEDS: Metoprolol Succinate 25 MG Tab.ER PO SCH (08:27)
[2017-04-04] MEDS: DULoxetine 30 MG Cap PO SCH (08:27)
[2017-04-04] MEDS: Furosemide 40 MG Tab PO SCH (08:27)
[2017-04-04] MEDS: Acetaminophen 325 MG Tab PO SCH ×3 (08:28→20:34)
--- NOTE | 2017-04-04 08:52 | HP ---
HISTORY OF PRESENT ILLNESS: Mr. Kenan Glaser is an 87-year-old man with a medical history of congestive heart failure, atrial fibrillation, coronary artery disease, dyslipidemia, and pulmonary interstitial fibrosis. The patient was recently admitted to the hospital because of vomiting and diarrhea. He was thought to be septic with elevated white cell count and elevated serum lactate. All blood cultures are negative. Sputum and urine cultures were also negative. Stool culture grew beta-hemolytic Gram-positive cocci thought to be Staph aureus. The patient was treated with intravenous antibiotics and later on oral. He is still weak. With intravenous fluid administration, the patient became fluid overloaded and went in CHF. REVIEW OF SYSTEMS: Constitutional, cardiac, respiratory, gastrointestinal, and genitourinary systems were reviewed. No other pertinent findings except as noted above. PAST MEDICAL HISTORY: 1. Atrial fibrillation. 2. Coronary artery disease. 3. Type 2 diabetes mellitus. 4. Dyslipidemia. 5. Gastroesophageal reflux disease. 6. Pulmonary interstitial fibrosis. 7. Status post pacemaker placement. SOCIAL HISTORY: The patient is . Lives independently. FAMILY HISTORY: Reviewed and considered noncontributory. OBJECTIVE: General: The patient is alert, oriented to place, time, and person. Head: Atraumatic and normocephalic. Ear, Nose, and Throat: Unremarkable. Neck: Supple. Chest: Diminished breath sounds bilaterally. Crackles bilaterally. CVS: Irregular rate and rhythm. Abdomen: Soft, nontender. Extremities: No pedal edema. Skin: No rash. Neuro: Symmetric strength. Vital Signs: Reviewed. LABORATORY DATA: INR is therapeutic. Creatinine is less than 0.09. ASSESSMENT: 1. Sepsis (resolved). This is likely due to gastrointestinal illness, colitis. 2. Colitis. This was probably bacterial colitis. Stool cultures grew gram- positive beta-hemolytic organism thought to be Staph aureus. 3. Acute hypoxemic respiratory failure. Still needing supplemental oxygen. This is likely due to congestive heart failure. 4. Acute exacerbation of diastolic congestive heart failure. The exacerbation was as a result of resuscitation for sepsis with aggressive intravenous fluid administration as coronary artery disease, status post previous stent. 5. Diabetes mellitus. Currently not on any medication for this. 6. Interstitial fibrosis. Previously documented. PLAN: 1. Admit the patient to swing bed. 2. Restart current medications, discontinue Flagyl. 3. Discontinue doxycycline. 4. Start oral Lasix. 5. Physical therapy consult. 6. Occupational therapy consult. [facility] /[id number]
[2017-04-04] MEDS ORDERED: Non-Formulary Medication 1 Each (Fish Oil/Omega-3 Fatty Acids [Fish Oil 1,000 Mg] 1,000 MG PO SCH (09:00)
[2017-04-04] MEDS ORDERED: Warfarin 2 MG Tab PO ONE (14:00)
[2017-04-04] MEDS: Simvastatin 40 MG Tab PO SCH (20:34)
[2017-04-05] MEDS: Omeprazole 20 MG Cap.CR PO SCH (05:41)
[2017-04-05] MEDS: fentaNYL 25 MCG/HR Transdermal Patch TOP SCH (05:43)
[2017-04-05] MEDS: Calcium Carbonate/Vitamin D3 1250 MG-200 Unit Tab PO SCH ×2 (08:38→20:31)
[2017-04-05] MEDS: Metoprolol Succinate 25 MG Tab.ER PO SCH (08:38)
[2017-04-05] MEDS: DULoxetine 30 MG Cap PO SCH (08:39)
[2017-04-05] MEDS: Acetaminophen 325 MG Tab PO SCH ×3 (08:39→20:32)
[2017-04-05] MEDS: Gabapentin 100 MG Cap PO SCH ×3 (08:39→20:32)
[2017-04-05] MEDS: Furosemide 40 MG Tab PO SCH (08:40)
[2017-04-05] MEDS: Docusate Sodium 100 MG Cap PO SCH ×2 (08:43→20:31)
[2017-04-05] MEDS: Check Patch TRDERM SCH ×2 (08:44→20:36)
[2017-04-05] MEDS: Simvastatin 40 MG Tab PO SCH (20:32)
[2017-04-05] MEDS ORDERED: Sodium Chloride 0.9% 10 ML Syringe FLUSH PRN (22:26)
[2017-04-05] MEDS ORDERED: Furosemide 40 MG/4 ML VIAL IVPUSH ONE (22:27)
[2017-04-06] MEDS: Omeprazole 20 MG Cap.CR PO SCH (06:11)
[2017-04-06 07:00] LABS: CHLORIDE,CL 97 mmol/L (101-111); SODIUM,NA 134 mmol/L (135-145)
[2017-04-06] MEDS: Metoprolol Succinate 25 MG Tab.ER PO SCH (08:17)
[2017-04-06] MEDS: Gabapentin 100 MG Cap PO SCH ×3 (08:17→20:54)
[2017-04-06] MEDS: DULoxetine 30 MG Cap PO SCH (08:17)
[2017-04-06] MEDS: Docusate Sodium 100 MG Cap PO SCH ×2 (08:18→20:54)
[2017-04-06] MEDS: Acetaminophen 325 MG Tab PO SCH ×3 (08:18→20:54)
[2017-04-06] MEDS: Furosemide 40 MG Tab PO SCH ×2 (08:19→13:50)
[2017-04-06] MEDS: Calcium Carbonate/Vitamin D3 1250 MG-200 Unit Tab PO SCH (08:19)
[2017-04-06] MEDS: Check Patch TRDERM SCH ×2 (08:20→20:56)
--- NOTE | 2017-04-06 10:30 | CR ---
Clinical history: 87-year-old male dyspnea. Interpretation: Upright AP portable chest film markedly abnormal i.e. chronic cardiomegaly and pulmon mony venous congestion with signs of decompensation since 28 March 2017 (slight radiographic improve ment compared to interval 30 March 2017 this patient with cardiac pacemaker). No new lung mass or focal lobar pneumonia. CONCLUSION: Chronic CHF.
--- NOTE | 2017-04-06 20:29 | EKG ---
04/06/2017 - MACHELLE LEIGH - This 12-lead EKG shows an undetermined rhythm with a ventricular rate of 60 with left axis deviation and a left bundle-branch block. No further comments are made. [facility] /[id number] MTDD
[2017-04-06] MEDS: Calcium Carbonate 500 MG Tab.Chew PO SCH (20:54)
[2017-04-06] MEDS: Simvastatin 40 MG Tab PO SCH (20:54)
[2017-04-07] MEDS: Omeprazole 20 MG Cap.CR PO SCH (05:59)
[2017-04-07] MEDS: Metoprolol Succinate 25 MG Tab.ER PO SCH (08:23)
[2017-04-07] MEDS: Gabapentin 100 MG Cap PO SCH ×3 (08:24→21:30)
[2017-04-07] MEDS: Furosemide 20 MG Tab PO SCH ×2 (08:24→14:25)
[2017-04-07] MEDS: Docusate Sodium 100 MG Cap PO SCH ×2 (08:24→21:30)
[2017-04-07] MEDS: Calcium Carbonate 500 MG Tab.Chew PO SCH ×3 (08:24→18:05)
[2017-04-07] MEDS: DULoxetine 30 MG Cap PO SCH (08:24)
[2017-04-07] MEDS: Acetaminophen 325 MG Tab PO SCH ×3 (08:25→21:30)
[2017-04-07] MEDS: Check Patch TRDERM SCH ×2 (08:30→21:53)
--- NOTE | 2017-04-07 09:12 | PN ---
DATE: 04/06/2017 SUBJECTIVE: Mr. Glaser is an 87-year-old gentleman, who was recently in acute care from March 28 to April 03 for acute diarrheal illness. Cultures during that time were positive for a Staph organism. He is now in swing bed to continue working with occupational and physical therapy because of general weakness and debility. He was doing well, but had some issues overnight. Apparently, he became somewhat hypoxic overnight requiring a Venti-Mask to improve his oxygenation. Nursing staff said that he was somewhat tachypneic, did not complain of any chest pain. Dr. Wood had given him an additional Lasix late last night, and he had a large incontinent void. PHYSICAL EXAMINATION: General: This morning, he is lying in bed. He voices no specific complaints, although nursing staff was concerned because he has felt somewhat clammy. Vital Signs: Blood pressure this morning was on the lower side at 92/47, pulse of 70, respiratory rate 20, oxygen saturation was 92% to 93% back on 2 L nasal cannula. He was afebrile. He denied any chest pain or shortness of breath, and just stated he felt tired. Chest: Showed clear but diminished bilateral breath sounds. Heart: Showed regular rate and rhythm. Abdomen: Benign. Calves: Soft. Skin: It was rather damp, but it was more that he felt warm as opposed to cool and clammy. LABORATORY DATA: Repeat lab work this morning showed sodium 134, potassium 4.5, BUN and creatinine were 18 and 1.1 with a GFR of more than 60. Blood sugars were more or less controlled. A troponin was 0.05 and this was repeated later the next morning and was 0.04. The BNP was 523. A portable chest x-ray was taken this morning and showed chronic CHF, but no acute decompensation. A 12-lead EKG showed an undetermined rhythm with a ventricular rate of 60, left axis deviation, and a left bundle-branch block. Over the course of the day, he seemed improved. Blood pressure in the evening was 97/58, pulse 72, respiratory rate 20, oxygen saturation 94% on 2 L. It should be noted that the blood pressures for the most part have been on the lower side since his admission, although higher than they were today. The goal is still for him to continue working with therapy and returning to assisted living, but today it was obvious that he was very upset that he had been incontinent and was unable to control his urine and he is very frail. One of the problem from this morning, he seemed to have trouble swallowing tablets and we did change both his Lasix and calcium to smaller tablets. Hopefully, this will help. No other changes are made. [facility] /[id number]
[2017-04-07] MEDS ORDERED: Warfarin 2 MG Tab PO ONE (14:00)
[2017-04-07] MEDS ORDERED: Warfarin 5 MG Tab PO SCH (14:00)
[2017-04-07] MEDS: Simvastatin 40 MG Tab PO SCH (21:30)
[2017-04-08] MEDS: fentaNYL 25 MCG/HR Transdermal Patch TOP SCH (06:19)
[2017-04-08] MEDS: Omeprazole 20 MG Cap.CR PO SCH (06:20)
[2017-04-08] MEDS: Calcium Carbonate 500 MG Tab.Chew PO SCH ×2 (09:32→18:54)
[2017-04-08] MEDS: Gabapentin 100 MG Cap PO SCH ×3 (09:33→20:18)
[2017-04-08] MEDS: Acetaminophen 325 MG Tab PO SCH ×3 (09:33→20:18)
[2017-04-08] MEDS: Docusate Sodium 100 MG Cap PO SCH ×2 (09:33→20:18)
[2017-04-08] MEDS: Furosemide 20 MG Tab PO SCH (09:33)
[2017-04-08] MEDS: DULoxetine 30 MG Cap PO SCH (09:33)
[2017-04-08] MEDS: Check Patch TRDERM SCH ×2 (09:37→20:19)
[2017-04-08] MEDS: Metoprolol Succinate 25 MG Tab.ER PO SCH (09:39)
[2017-04-08] MEDS ORDERED: Calcium Carbonate 500 MG Tab.Chew PO PRN (10:54)
[2017-04-08] MEDS: Furosemide 40 MG Tab PO SCH (13:54)
[2017-04-08] MEDS ORDERED: Warfarin 5 MG Tab PO ONE (14:00)
[2017-04-08] MEDS: Simvastatin 40 MG Tab PO SCH (20:18)
[2017-04-09] MEDS: Omeprazole 20 MG Cap.CR PO SCH (06:06)
[2017-04-09] MEDS: Acetaminophen 325 MG Tab PO SCH ×3 (08:42→20:09)
[2017-04-09] MEDS: Furosemide 40 MG Tab PO SCH ×2 (08:42→13:17)
[2017-04-09] MEDS: Calcium Carbonate 500 MG Tab.Chew PO SCH ×2 (08:43→17:52)
[2017-04-09] MEDS: Check Patch TRDERM SCH ×2 (08:43→20:22)
[2017-04-09] MEDS: DULoxetine 30 MG Cap PO SCH (08:43)
[2017-04-09] MEDS: Docusate Sodium 100 MG Cap PO SCH ×2 (08:43→20:09)
[2017-04-09] MEDS: Gabapentin 100 MG Cap PO SCH ×3 (08:43→20:09)
[2017-04-09] MEDS: Metoprolol Succinate 25 MG Tab.ER PO SCH (08:44)
[2017-04-09] MEDS ORDERED: Warfarin 5 MG, Warfarin 2.5 MG PO SCH ×2 (14:00)
[2017-04-09] MEDS: Simvastatin 40 MG Tab PO SCH (20:09)
[2017-04-10] MEDS: Omeprazole 20 MG Cap.CR PO SCH (05:22)
[2017-04-10] MEDS: Acetaminophen 325 MG Tab PO SCH ×3 (09:58→20:11)
[2017-04-10] MEDS: DULoxetine 30 MG Cap PO SCH (09:58)
[2017-04-10] MEDS: Metoprolol Succinate 25 MG Tab.ER PO SCH (09:59)
[2017-04-10] MEDS: Docusate Sodium 100 MG Cap PO SCH ×2 (09:59→20:09)
[2017-04-10] MEDS: Furosemide 40 MG Tab PO SCH ×2 (09:59→13:39)
[2017-04-10] MEDS: Gabapentin 100 MG Cap PO SCH ×3 (09:59→20:09)
[2017-04-10] MEDS: Calcium Carbonate 500 MG Tab.Chew PO SCH ×2 (09:59→17:10)
[2017-04-10] MEDS: Check Patch TRDERM SCH ×2 (10:00→20:10)
[2017-04-10] MEDS ORDERED: Warfarin 2.5 MG Tab PO ONE (14:00)
[2017-04-10] MEDS: Simvastatin 40 MG Tab PO SCH (20:08)
[2017-04-11] MEDS: Omeprazole 20 MG Cap.CR PO SCH (05:49)
[2017-04-11] MEDS: fentaNYL 25 MCG/HR Transdermal Patch TOP SCH (06:02)
[2017-04-11] MEDS: Calcium Carbonate 500 MG Tab.Chew PO SCH ×2 (08:46→18:07)
[2017-04-11] MEDS: Metoprolol Succinate 25 MG Tab.ER PO SCH (08:47)
[2017-04-11] MEDS: Furosemide 40 MG Tab PO SCH ×2 (08:47→14:04)
[2017-04-11] MEDS: Docusate Sodium 100 MG Cap PO SCH ×2 (08:48→20:45)
[2017-04-11] MEDS: Acetaminophen 325 MG Tab PO SCH ×3 (08:48→20:44)
[2017-04-11] MEDS: DULoxetine 30 MG Cap PO SCH (08:49)
[2017-04-11] MEDS: Check Patch TRDERM SCH ×2 (08:49→20:48)
[2017-04-11] MEDS: Gabapentin 100 MG Cap PO SCH ×3 (08:49→20:45)
[2017-04-11] MEDS ORDERED: Magnesium Hydroxide 400 MG/5 ML Susp 30 ML Cup PO PRN (13:30)
[2017-04-11] MEDS ORDERED: Warfarin 2.5 MG Tab PO ONE (14:00)
[2017-04-11] MEDS: Bisacodyl 10 MG Supp RECTAL PRN (14:08)
[2017-04-11] MEDS: Simvastatin 40 MG Tab PO SCH (20:45)
[2017-04-12] MEDS: Omeprazole 20 MG Cap.CR PO SCH (05:55)
[2017-04-12] MEDS: Metoprolol Succinate 25 MG Tab.ER PO SCH (08:47)
[2017-04-12] MEDS: Calcium Carbonate 500 MG Tab.Chew PO SCH ×2 (08:47→18:04)
[2017-04-12] MEDS: Furosemide 40 MG Tab PO SCH ×2 (08:48→14:10)
[2017-04-12] MEDS: DULoxetine 30 MG Cap PO SCH (08:48)
[2017-04-12] MEDS: Gabapentin 100 MG Cap PO SCH ×3 (08:48→20:55)
[2017-04-12] MEDS: Acetaminophen 325 MG Tab PO SCH ×3 (08:48→20:55)
[2017-04-12] MEDS: Docusate Sodium 100 MG Cap PO SCH ×2 (08:48→20:54)
[2017-04-12] MEDS: Check Patch TRDERM SCH ×2 (08:49→20:56)
[2017-04-12] MEDS ORDERED: Warfarin 5 MG Tab PO ONE (14:00)
[2017-04-12] MEDS: Simvastatin 40 MG Tab PO SCH (20:55)
[2017-04-13] MEDS: Omeprazole 20 MG Cap.CR PO SCH (05:55)
[2017-04-13] MEDS: Docusate Sodium 100 MG Cap PO SCH ×2 (09:14→20:27)
[2017-04-13] MEDS: DULoxetine 30 MG Cap PO SCH (09:14)
[2017-04-13] MEDS: Furosemide 40 MG Tab PO SCH ×2 (09:14→14:17)
[2017-04-13] MEDS: Calcium Carbonate 500 MG Tab.Chew PO SCH ×2 (09:14→17:23)
[2017-04-13] MEDS: Gabapentin 100 MG Cap PO SCH ×3 (09:15→20:27)
[2017-04-13] MEDS: Acetaminophen 325 MG Tab PO SCH ×3 (09:15→20:27)
[2017-04-13] MEDS: Metoprolol Succinate 25 MG Tab.ER PO SCH (09:15)
[2017-04-13] MEDS: Check Patch TRDERM SCH ×2 (09:16→20:37)
[2017-04-13] MEDS ORDERED: Warfarin 5 MG Tab PO ONE (14:00)
[2017-04-13] MEDS: Menthol/Methyl Salicylate 85 GM Tube TOP PRN (14:19)
[2017-04-13] MEDS: Simvastatin 40 MG Tab PO SCH (20:28)
[2017-04-14] MEDS: fentaNYL 25 MCG/HR Transdermal Patch TOP SCH (06:10)
[2017-04-14] MEDS: Omeprazole 20 MG Cap.CR PO SCH (06:13)
[2017-04-14] MEDS: Furosemide 40 MG Tab PO SCH ×2 (08:03→13:43)
[2017-04-14] MEDS: Calcium Carbonate 500 MG Tab.Chew PO SCH ×2 (08:03→17:51)
[2017-04-14] MEDS: Menthol/Methyl Salicylate 85 GM Tube TOP PRN (08:10)
[2017-04-14] MEDS: Acetaminophen 325 MG Tab PO SCH ×3 (10:04→21:32)
[2017-04-14] MEDS: Check Patch TRDERM SCH ×2 (10:04→21:34)
[2017-04-14] MEDS: Gabapentin 100 MG Cap PO SCH ×3 (10:05→21:32)
[2017-04-14] MEDS: Docusate Sodium 100 MG Cap PO SCH ×2 (10:06→21:32)
[2017-04-14] MEDS: Metoprolol Succinate 25 MG Tab.ER PO SCH (10:06)
[2017-04-14] MEDS: DULoxetine 30 MG Cap PO SCH (10:06)
[2017-04-14] MEDS ORDERED: Warfarin 5 MG Tab PO ONE (14:00)
[2017-04-14] MEDS: Simvastatin 40 MG Tab PO SCH (21:32)
[2017-04-15] MEDS: Omeprazole 20 MG Cap.CR PO SCH (06:04)
[2017-04-15] MEDS: Check Patch TRDERM SCH ×2 (08:58→20:47)
[2017-04-15] MEDS: Acetaminophen 325 MG Tab PO SCH ×3 (09:00→20:47)
[2017-04-15] MEDS: DULoxetine 30 MG Cap PO SCH (09:01)
[2017-04-15] MEDS: Calcium Carbonate 500 MG Tab.Chew PO SCH ×2 (09:01→18:41)
[2017-04-15] MEDS: Docusate Sodium 100 MG Cap PO SCH ×2 (09:01→20:47)
[2017-04-15] MEDS: Gabapentin 100 MG Cap PO SCH ×3 (09:01→20:47)
[2017-04-15] MEDS: Furosemide 40 MG Tab PO SCH ×2 (09:02→14:22)
[2017-04-15] MEDS: Metoprolol Succinate 25 MG Tab.ER PO SCH (10:38)
[2017-04-15] MEDS ORDERED: Warfarin 5 MG Tab PO ONE (14:00)
--- NOTE | 2017-04-15 15:49 | PN ---
DATE: 04/15/2017 SUBJECTIVE: Mr. Kenan Glaser is an 87-year-old male with a medical history significant for chronic congestive heart failure, atrial fibrillation, coronary artery disease, dyslipidemia, pulmonary fibrosis, admitted to the hospital with vomiting and diarrhea and was noted to have possible sepsis from colitis, got resolved, and was admitted to the Swing Bed for continued physical therapy and occupational therapy. For the last 24 hours, the patient denies any complaints of chest pain. No shortness of breath. No abdominal pain. No nausea. No vomiting. No diarrhea. The patient is able to ambulate well without any difficulty. REVIEW OF SYSTEMS: Cardiovascular, respiratory, gastrointestinal, neurology, constitutional were all evaluated. PHYSICAL EXAMINATION: Vital Signs: Temperature of 97.6, pulse of 61, blood pressure 111/54, respiratory rate of 20, and saturating at 99% on room air. General Appearance: The patient is well oriented to time, place, and person. Follows commands spontaneously. Cardiovascular System: S1 and S2 heard with normal intensity. No gallops. Respiratory System: Clear to auscultation bilaterally. No wheeze. No crepitations. Abdomen: Soft. Bowel sounds positive. Nontender. No rigidity. Extremities: No edema in the bilateral lower extremities. MEDICATIONS: Reviewed. Continue with: 1. Tylenol 650 every 4 hours as needed for pain. 2. Dulcolax 10 mg rectal as needed for constipation. 3. Tums 500 mg twice a day. 4. Docusate sodium 100 mg twice a day. 5. Cymbalta 30 mg daily. 6. Fentanyl patch 25 mcg topical. 7. Lasix 40 mg twice a day. 8. Neurontin 100 mg three times a day. 9. Milk of magnesia as needed for constipation. 10.Toprol-XL 12.5 mg daily. 11.Omeprazole 20 mg daily. 12.Zofran 4 mg every 6 hours as needed. 13.Zocor 40 mg at bedtime. 14.Coumadin. Pharmacy to dose. LABORATORY DATA: Reviewed. INR 2.2. ASSESSMENT: 1. Sepsis from acute colitis, resolved. 2. Atrial fibrillation. Rate well controlled. 3. Coronary artery disease. 4. Type 2 diabetes mellitus. 5. Hyperlipidemia. 6. Gastroesophageal reflux disease. 7. Pulmonary fibrosis. 8. Status post pacemaker placed. PLAN: 1. The patient is currently on swing bed. Receiving physical therapy and occupational therapy. Continue the same. 2. Possible sepsis, which got resolved. This is mainly from his colitis, not resolved at this time. 3. Acute hypoxemic respiratory failure, resolved. The patient is able to saturate well on room air. This is mainly from his congestive heart failure. He is currently on Lasix. Continue the same. 4. Type 2 diabetes mellitus, currently not on any new medications for now, but his blood sugars have been trending high and low. Blood sugars have dropped down to 55 and high blood sugar 230, so we will avoid any hypoglycemic episodes. The patient might benefit from adding a metformin when he is more stable to avoid any hyperglycemic episodes. 5. Hypertension. The patient's blood pressure seems to be on the lower side. Try to hold the metoprolol-XL. We will change the Lasix to once a day dosing to avoid any further hypotensive episodes if needed. 6. Chronic anticoagulation. Pharmacy to dose the Coumadin. The patient has underlying atrial fibrillation. Maintain therapeutic INR of 2 to 3. [facility] /[id number]
[2017-04-15] MEDS: Simvastatin 40 MG Tab PO SCH (20:47)
[2017-04-16] MEDS: Omeprazole 20 MG Cap.CR PO SCH (05:37)
[2017-04-16] MEDS: Calcium Carbonate 500 MG Tab.Chew PO SCH ×2 (09:13→17:36)
[2017-04-16] MEDS: Metoprolol Succinate 25 MG Tab.ER PO SCH (09:13)
[2017-04-16] MEDS: DULoxetine 30 MG Cap PO SCH (09:13)
[2017-04-16] MEDS: Acetaminophen 325 MG Tab PO SCH ×3 (09:15→20:23)
[2017-04-16] MEDS: Furosemide 40 MG Tab PO SCH ×2 (09:15→14:04)
[2017-04-16] MEDS: Gabapentin 100 MG Cap PO SCH ×3 (09:15→20:23)
[2017-04-16] MEDS: Docusate Sodium 100 MG Cap PO SCH ×2 (09:16→20:23)
[2017-04-16] MEDS: Check Patch TRDERM SCH ×2 (09:16→20:28)
[2017-04-16] MEDS ORDERED: Warfarin 5 MG Tab PO ONE (14:00)
[2017-04-16] MEDS: Simvastatin 40 MG Tab PO SCH (20:23)
[2017-04-17] MEDS: fentaNYL 25 MCG/HR Transdermal Patch TOP SCH (05:39)
[2017-04-17] MEDS: Omeprazole 20 MG Cap.CR PO SCH (05:44)
[2017-04-17 09:01] VITALS: BP 118/76
[2017-04-17] MEDS: Calcium Carbonate 500 MG Tab.Chew PO SCH (10:38)
[2017-04-17] MEDS: Docusate Sodium 100 MG Cap PO SCH (10:39)
[2017-04-17] MEDS: DULoxetine 30 MG Cap PO SCH (10:39)
[2017-04-17] MEDS: Acetaminophen 325 MG Tab PO SCH ×2 (10:39→13:06)
[2017-04-17] MEDS: Furosemide 40 MG Tab PO SCH ×2 (10:39→13:05)
[2017-04-17] MEDS: Metoprolol Succinate 25 MG Tab.ER PO SCH (10:39)
[2017-04-17] MEDS: Gabapentin 100 MG Cap PO SCH ×2 (10:39→13:05)
[2017-04-17] MEDS: Check Patch TRDERM SCH (10:43)
[2017-04-17] MEDS ORDERED: Nystatin Topical Powder 30 GM Bottle TOP PRN (11:12)
[2017-04-17] MEDS: Bisacodyl 10 MG Supp RECTAL PRN (13:11)
[2017-04-17] MEDS ORDERED: Warfarin 2.5 MG Tab PO ONE (14:00)
--- NOTE | 2017-04-17 14:06 | DISCH ---
FINAL DIAGNOSES: 1. Generalized weakness secondary to recent hospitalization. 2. Congestive heart failure. 3. History of sepsis. 4. Colitis. 5. Diabetes mellitus. 6. History of coronary artery disease. 7. Gastroesophageal reflux disease. 8. Pulmonary fibrosis. BRIEF HISTORY AND PHYSICAL: The patient is an 87-year-old male who was admitted under swing bed for continued strengthening, recently admitted under acute care because of sepsis. He was noted to have gram-positive infection in the urine, was started on IV antibiotics. He was noted to be weak, went into fluid overload, and exacerbation of his CHF. PAST MEDICAL HISTORY: Atrial fibrillation, coronary artery disease, type 2 diabetes mellitus, dyslipidemia, GERD, pulmonary fibrosis. On admission, documented physical exam showing an alert patient with diminished breath sounds bilaterally and crackles noted. No pedal edema. Under swing bed glucose being monitored as well as INR given the atrial fibrillation. The latest INR is 1.9. Chest x-ray, dated on 04/06 showed chronic CHF. HOSPITAL COURSE: The patient was admitted under swing bed. Physical Therapy and Occupational Therapy were consulted. He was started on oral Lasix. The patient has been doing well, but was noted to have some hypoxia overnight requiring Ventimask at some point. The patient was able to diurese well. 24 hours prior to discharge denies any complaints of chest pain or shortness of breath. Vital signs on discharge; blood pressure 118/76, heart rate of 61 beats per minute, respirations 20 breaths per minute, oxygen saturation 99% on oxygen supplementation. However, a walking desat was done and the patient was noted to have a resting oxygen saturation 86% on room air. Walking desat showed that he would benefit from continuous oxygen supplementation to keep oxygen above 90s and would benefit from 3 L portable oxygen. DISCHARGE INSTRUCTIONS: The patient to follow up with primary care physician within 1 week. Continue medications. Salt restriction. Daily weights. Oxygen 24 hours. To come back to the emergency room with emergent health concerns. [facility] /[id number]
== END 2017-04-17 15:30 | disposition home or self-care (01) | DRG 947 ==
LOC: DL.MS 09:17
PROVIDERS: ADMIT Hospitalist; ATTEND Hospitalist
DX: R53.1 Weakness (principal); I50.33 Acute on chronic diastolic (congestive) heart failure; I25.10 Atherosclerotic heart disease of native coronary artery without angina pectoris; R09.02 Hypoxemia; I48.91 Unspecified atrial fibrillation; E78.5 Hyperlipidemia, unspecified; J84.10 Pulmonary fibrosis, unspecified; E11.9 Type 2 diabetes mellitus without complications; K21.9 Gastro-esophageal reflux disease without esophagitis; Z95.0 Presence of cardiac pacemaker
CPT/HCPCS: 36415; 71010; 80048; 82962; 83880; 84484; 85610; 93005; 94010; 94761; 97110-GO; 97110-GP; 97116-GP; 97161-GP; 97165-GO; 97530-GO; 97535-GO; A9270-GY; J1940

== ENCOUNTER 2017-05-18 07:11 | Emergency (ER) | payer MEDICARE, BC ==
[2017-05-18 07:20] VITALS: BP 111/61
--- NOTE | 2017-05-18 07:27 | EDM.PDOC ---
ED HPI GENERAL MEDICAL PROBLEM - General Chief Complaint: Diabetic Complaint Stated Complaint: BY AMBULANCE Time Seen by Provider: 05/18/17 07:26 Source of Information: Reports: Patient, RN, RN Notes Reviewed History Limitations: Reports: No Limitations - History of Present Illness INITIAL COMMENTS - FREE TEXT/NARRATIVE: Pt presents to ER per [facility] from [facility]. He states when staff awoke him he was very confused and everything was "jumbled up". He states he is diabetic, and last took his oral agents last evening with a snack of yogurt. He states by the time he was one his way to the ER everything cleared up for him. Pt denies any pain at this time, and denies any recent illnesses. Onset: Today, Sudden Duration: Improving - Related Data Allergies Allergy/AdvReac Type Severity Reaction Status Date / Time aspirin Allergy Bleeding Verified 05/18/17 07:13 Home Meds: Home Meds Omeprazole 20 mg PO DAILY 03/05/14 [History] Warfarin Sodium [Jantoven] 5 mg PO .Mon06/08/16 [History] fentaNYL [Fentanyl] 25 mcg TOP Q3D 07/16/16 [History] Alendronate Sodium [Fosamax] 1 tab PO .SUN 03/28/17 [History] Calcium Carbonate/Vitamin D3 [Calcium 600 + Vit D Tablet] 1 tab PO BID 03/28/17 [History] DULoxetine HCl [Cymbalta] 1 tab PO DAILY 03/28/17 [History] Docusate Sodium [Colace] 1 cap PO BID PRN 03/28/17 [History] Fish Oil/[place]-3 Fatty Acids [Fish Oil 1,000 MG] 1,000 mg PO DAILY 03/28/17 [ History] Gabapentin [Neurontin] 100 mg PO TID 03/28/17 [History] Ipratropium [place] 2 sprays NASBOTH TID 03/28/17 [History] Warfarin Sodium 7.5 mg PO .GALLAGHER.. 03/28/17 [History] Lisinopril 5 mg PO DAILY 04/03/17 [History] Furosemide 1 tab PO BID #30 04/17/17 [Rx] Acetaminophen 500 mg PO TID 05/18/17 [History] Metoprolol Tartrate [Lopressor] 25 mg PO DAILY 05/18/17 [History] Sennosides/Docusate Sodium [Senna S Tablet] 1 tab PO DAILY 05/18/17 [History] Simvastatin [Zocor] 40 mg PO BEDTIME 05/18/17 [History] oxyCODONE HCl/Acetaminophen [Percocet 10-325 mg Tablet] 1 tab PO Q6H PRN [History] Past Medical History HEENT History: Reports: Hard of Hearing, Impaired Vision Cardiovascular History: Reports: Afib, CAD, Heart Failure, High Cholesterol, Hypertension Respiratory History: Reports: None Gastrointestinal History: Reports: GERD Genitourinary History: Reports: Prostate Disorder Musculoskeletal History: Reports: None Neurological History: Reports: None Psychiatric History: Reports: None Endocrine/Metabolic History: Reports: Diabetes, Type II Hematologic History: Reports: None Immunologic History: Reports: None Oncologic (Cancer) History: Reports: None Dermatologic History: Reports: None - Infectious Disease History Infectious Disease History: Reports: None - Past Surgical History Head Surgeries/Procedures: Reports: None Cardiovascular Surgical History: Reports: Coronary Artery Bypass, Pacer Social & Family History - Family History Family Medical History: Noncontributory - Tobacco Use Smoking Status *Q: Never Smoker Second Hand Smoke Exposure: No - Caffeine Use Caffeine Use: Reports: Coffee - Alcohol Use Days Per Week of Alcohol Use: 0 - Recreational Drug Use Recreational Drug Use: No - Living Situation & Occupation Occupation: Retired ED ROS GENERAL - Review of Systems Review Of Systems: ROS reveals no pertinent complaints other than HPI. ED EXAM GENERAL NO PERIP PULSE - Physical Exam Exam: See Below Exam Limited By: No Limitations General Appearance: Alert, WD/WN, No Apparent Distress Eye Exam: Bilateral Eye: EOMI, Normal Inspection Ears: Normal External Exam, Hearing Grossly Normal Nose: Normal Inspection Throat/Mouth: Normal Inspection, Normal Voice, No Airway Compromise Head: Atraumatic, Normocephalic Neck: Normal Inspection, Supple, Non-Tender, Full Range of Motion Respiratory/Chest: No Respiratory Distress, Chest Non-Tender, Crackles (bases bilaterally) Cardiovascular: Normal Peripheral Pulses, Regular Rate, Rhythm, No Edema, No Gallop, No JVD, Systolic Murmur (+3-4), Other (pacemaker present) GI/Abdominal: Normal Bowel Sounds, Soft, Non-Tender, No Organomegaly, No Distention (Male) Exam: Deferred Rectal (Males) Exam: Deferred Back Exam: Normal Inspection, Full Range of Motion Extremities: Normal Inspection, Normal Range of Motion, Non-Tender, No Pedal Edema, Normal Capillary Refill Neurological: Alert, Oriented, Normal Cognition, No Motor/Sensory Deficits Psychiatric: Normal Affect, Normal Mood Skin Exam: Warm, Dry, Intact, Normal Color, No Rash Lymphatic: No Adenopathy Course - Vital Signs Last Recorded V/S: Last Vital Signs Temp 97.4 F 05/18/17 07:19 Pulse 66 05/18/17 07:19 Resp 16 05/18/17 07:19 BP 111/61 05/18/17 07:19 Pulse Ox 98 05/18/17 07:19 - Orders/Labs/Meds Labs: Laboratory Tests 05/18/17 05/18/17 05/18/17 Range/Units 07:15 07:52 07:52 WBC 5.5 (5.0-10.0) 10^3/uL RBC 2.79 L (4.6-6.2) 10^6/uL Hgb 9.3 L (14.0-18.0) g/dL Hct 28.5 L (40.0-54.0) % MCV 102.2 H (80-100) fL MCH 33.3 (27.0-34.0) pg MCHC 32.6 L (33.0-35.0) g/dL Plt Count 190 (150-450) 10^3/uL Neut % (Auto) 69.2 (42.2-75.2) % Lymph % (Auto) 16.5 L (20.5-50.1) % [place] % (Auto) 13.1 H (2-8) % Eos % (Auto) 0.7 L (1.0-3.0) % Baso % (Auto) 0.5 (0.0-1.0) % Sodium 132 L (135-145) mmol/L Potassium 4.5 (3.6-5.0) mmol/L Chloride 93 L (101-111) mmol/L Carbon Dioxide 31.0 (21.0-31.0) mmol/L Anion Gap 12.5 BUN 34 H (7-18) mg/dL Creatinine 1.3 (0.6-1.3) mg/dL Est Cr Clr Drug Dosing 39.51 mL/min Estimated GFR (MDRD) 52 BUN/Creatinine Ratio 26.15 Glucose 102 (74-105) mg/dL POC Glucose 42 L* (83-110) mg/dl Calcium 8.6 (8.4-10.2) mg/dl Total Bilirubin 0.6 (0.2-1.0) mg/dL AST 39 (10-42) IU/L ALT 27 (10-60) IU/L Alkaline Phosphatase 88 (42-121) IU/L Total Protein 7.6 (6.7-8.2) g/dl Albumin 3.2 (3.2-5.5) g/dl Globulin 4.4 Albumin/Globulin Ratio 0.73 NEGATIVE GUIAC - Radiology Interpretation Free Text/Narrative:: Pt hemoglobin was discussed with Dr. Wong. Patient denies any dark stools, vomiting blood, or blood loss otherwise. He states he feels well. Dr. Wong states if no signs of bleeding, he will follow the patients hemoglobin next week when the patient is seen in the clinic. Departure - Departure Time of Disposition: 09:09 Disposition: Home, Self-Care 01 Clinical Impression: Hypoglycemia Anemia Qualifiers: Anemia type: unspecified type Qualified Code(s): D64.9 - Anemia, unspecified - Discharge Information Instructions: Type 2 Diabetes Mellitus, Adult, [id number] Forms: ED Department Discharge Additional Instructions: Follow up with Dr. Wong with your already scheduled appointment on 05/25/17. Check blood sugars regularly and eat snacks as appropriate.
== END 2017-05-18 09:50 | disposition home or self-care (01) ==
LOC: DL.ED 07:11
DX: E11.649 Type 2 diabetes mellitus with hypoglycemia without coma (principal); D64.9 Anemia, unspecified; I11.0 Hypertensive heart disease with heart failure; I50.9 Heart failure, unspecified; I25.10 Atherosclerotic heart disease of native coronary artery without angina pectoris; E78.00 Pure hypercholesterolemia, unspecified; Z95.1 Presence of aortocoronary bypass graft; Z95.0 Presence of cardiac pacemaker; Z79.01 Long term (current) use of anticoagulants; Z79.899 Other long term (current) drug therapy; Z88.6 Allergy status to analgesic agent
CPT/HCPCS: 36415; 80053; 82272; 82962; 85025; 99284

== ENCOUNTER 2017-07-05 00:22 | Observation (INO) | payer MEDICARE, BC ==
[2017-07-05 00:57] LABS: BASE EXCESS ARTERIAL -4 mmol/L ((-2)-(+3)); BICARBONATE,ARTERIAL 21.2 mmol/L (22-26); O2 DELIVERY DEVICE NON REBR MASK; O2 SATURATION ARTERIAL 95 % (95-100); PCO2 ARTERIAL 42 mmHg (35-45); PO2 ARTERIAL 75 mmHg (70-100)
[2017-07-05 01:00] LABS: ALLEN TEST yes; O2 FLOW RATE 3
[2017-07-05 01:06] LABS: ANION GAP 17.5; CHLORIDE,CL 96 mmol/L (101-111); SODIUM,NA 132 mmol/L (135-145)
--- NOTE | 2017-07-05 01:30 | EDM.PDOC ---
ED HPI GENERAL MEDICAL PROBLEM - General Chief Complaint: Syncope Stated Complaint: IN BY AMBULANCE Time Seen by Provider: 07/05/17 00:25 Source of Information: Reports: Patient, EMS History Limitations: Reports: No Limitations - History of Present Illness INITIAL COMMENTS - FREE TEXT/NARRATIVE: ED via [facility] patient reported to have had syncopal episode while transferring. Patient reports slipping and landing on buttocks , denies hitting head. C/o back pain with movement, no change. from chronic. EMS also noted initial oxygen saturation on their arrival was 70% on room air. Treatments PARTS PROCESSOR: Reports: IV/IO, Oxygen - Related Data Allergies Allergy/AdvReac Type Severity Reaction Status Date / Time aspirin Allergy Bleeding Verified 07/05/17 00:32 Home Meds: Home Meds Omeprazole 20 mg PO DAILY 03/05/14 [History] Warfarin Sodium [Jantoven] 5 mg PO .Mon06/08/16 [History] fentaNYL [Fentanyl] 25 mcg TOP Q3D 07/16/16 [History] Alendronate Sodium [Fosamax] 1 tab PO .SUN 03/28/17 [History] Calcium Carbonate/Vitamin D3 [Calcium 600 + Vit D Tablet] 1 tab PO BID 03/28/17 [History] DULoxetine HCl [Cymbalta] 1 tab PO DAILY 03/28/17 [History] Docusate Sodium [Colace] 1 cap PO BID PRN 03/28/17 [History] Fish Oil/[place]-3 Fatty Acids [Fish Oil 1,000 MG] 1,000 mg PO DAILY 03/28/17 [ History] Gabapentin [Neurontin] 100 mg PO TID 03/28/17 [History] Ipratropium [place] 2 sprays NASBOTH TID 03/28/17 [History] Warfarin Sodium 7.5 mg PO .GALLAGHER.. 03/28/17 [History] Lisinopril 5 mg PO DAILY 04/03/17 [History] Furosemide 1 tab PO BID #30 04/17/17 [Rx] Acetaminophen 500 mg PO TID 05/18/17 [History] Metoprolol Tartrate [Lopressor] 25 mg PO DAILY 05/18/17 [History] Sennosides/Docusate Sodium [Senna S Tablet] 1 tab PO DAILY 05/18/17 [History] Simvastatin [Zocor] 40 mg PO BEDTIME 05/18/17 [History] oxyCODONE HCl/Acetaminophen [Percocet 10-325 mg Tablet] 1 tab PO Q6H PRN [History] Past Medical History HEENT History: Reports: Hard of Hearing, Impaired Vision Cardiovascular History: Reports: Afib, CAD, Heart Failure, High Cholesterol, Hypertension Other Cardiovascular History: NSTEMI; bradycardia Respiratory History: Reports: None Other Respiratory History: shortness of breath Gastrointestinal History: Reports: GERD Genitourinary History: Reports: Prostate Disorder Musculoskeletal History: Reports: None Other Musculoskeletal History: wedge compression fx lumbar & toracic spine Neurological History: Reports: None Psychiatric History: Reports: None Endocrine/Metabolic History: Reports: Diabetes, Type II Hematologic History: Reports: None Immunologic History: Reports: None Oncologic (Cancer) History: Reports: None Dermatologic History: Reports: None - Infectious Disease History Infectious Disease History: Reports: None - Past Surgical History Head Surgeries/Procedures: Reports: None Cardiovascular Surgical History: Reports: Coronary Artery Bypass, Pacer Social & Family History - Family History Family Medical History: Noncontributory - Tobacco Use Smoking Status *Q: Current Status Unknown Second Hand Smoke Exposure: No - Caffeine Use Caffeine Use: Reports: Coffee Caffeine Use Comment: unable to obtain - Alcohol Use Days Per Week of Alcohol Use: 0 - Recreational Drug Use Recreational Drug Use: No - Living Situation & Occupation Occupation: Retired ED ROS GENERAL - Review of Systems Review Of Systems: See Below Constitutional: Reports: Decreased Appetite. Denies: Fever, Chills HEENT: Reports: Glasses Respiratory: Denies: Shortness of Breath, Cough Cardiovascular: Denies: Chest Pain, Lightheadedness, Palpitations GI/Abdominal: Reports: No Symptoms Musculoskeletal: Reports: Back Pain (chronic) Neurological: Reports: Syncope - Physical Exam Exam: See Below Exam Limited By: No Limitations General Appearance: Alert, Mild Distress (with movement) Eye Exam: Bilateral Eye: EOMI, PERRL Ears: Normal External Exam Nose: Normal Inspection Throat/Mouth: Normal Inspection, Normal Lips Head Exam: Atraumatic, Normocephalic Neck: Normal Inspection, Full Range of Motion Respiratory/Chest: Decreased Breath Sounds Cardiovascular: Normal Peripheral Pulses, Irregularly Irregular (rare PVC's and paced beats) GI/Abdominal: Normal Bowel Sounds, Soft, Non-Tender Neuro Exam (Abbreviated): Alert, Oriented, Other (forgetful at times majority of questions answered of problems) Back Exam: Decreased Range of Motion (stiff), Paraspinal Tenderness Extremities: Normal Inspection, Limited Range of Motion Psychiatric: Normal Affect Skin Exam: Warm, Dry, Wound/Incision (dime size abrasion right elbow, bleeding controlled) Course - Vital Signs Last Recorded V/S: Last Vital Signs Temp 97.8 F 07/05/17 00:25 Pulse 111 H 07/05/17 00:25 Resp 22 H 07/05/17 00:35 BP 101/60 07/05/17 00:25 Pulse Ox 93 L 07/05/17 00:35 - Orders/Labs/Meds Orders: Active Orders 24 hr Category Date Time Status EKG 12 Lead [EKG Documentation Completion] [] URGENT Care 07/05/17 00:49 Active Glucose [Blood Glucose Check, Bedside] [] ONETIME Care 07/05/17 00:53 Active CULTURE BLOOD [] Stat Lab 07/05/17 00:30 Results Medication Orders Sodium Chloride (Normal Saline) 1,000 mls @ 125 mls/hr IV .Q8H [facility] Labs: Laboratory Tests 07/05/17 07/05/17 07/05/17 Range/Units 00:30 00:35 00:35 WBC 13.1 H (5.0-10.0) 10^3/uL RBC 3.01 L (4.6-6.2) 10^6/uL Hgb 10.1 L (14.0-18.0) g/dL Hct 31.3 L (40.0-54.0) % MCV 104.0 H (80-100) fL MCH 33.6 (27.0-34.0) pg MCHC 32.3 L (33.0-35.0) g/dL Plt Count 201 (150-450) 10^3/uL Neut % (Auto) 78.7 H (42.2-75.2) % Lymph % (Auto) 10.4 L (20.5-50.1) % [place] % (Auto) 10.5 H (2-8) % Eos % (Auto) 0.2 L (1.0-3.0) % Baso % (Auto) 0.2 (0.0-1.0) % PT (9.0-12.0) SEC INR (0.9-1.2) ABG pH (7.35-7.45) ABG pCO2 (35-45) mmHg ABG pO2 (70-100) mmHg ABG HCO3 (22-26) mmol/L ABG O2 Saturation (95-100) % ABG Base Excess ((-2)-(+3)) mmol/L Edmundo Test O2 Delivery Device Oxygen Flow Rate Sodium 132 L (135-145) mmol/L Potassium 4.5 (3.6-5.0) mmol/L Chloride 96 L (101-111) mmol/L Carbon Dioxide 23.0 (21.0-31.0) mmol/L Anion Gap 17.5 BUN 37 H (7-18) mg/dL Creatinine 1.6 H (0.6-1.3) mg/dL Est Cr Clr Drug Dosing TNP Estimated GFR (MDRD) 41 BUN/Creatinine Ratio 23.12 Glucose 146 H (74-105) mg/dL POC Glucose (83-110) mg/dl Lactic Acid 9.3 H (0.5-2.2) mmol/L Calcium 8.6 (8.4-10.2) mg/dl Total Bilirubin 0.9 (0.2-1.0) mg/dL AST 65 H (10-42) IU/L ALT 41 (10-60) IU/L Alkaline Phosphatase 75 (42-121) IU/L Troponin I < 0.02 (0.00-0.02) ng/ml B-Natriuretic Peptide 315 H (0-100) pg/ml Total Protein 7.9 (6.7-8.2) g/dl Albumin 3.7 (3.2-5.5) g/dl Globulin 4.2 Albumin/Globulin Ratio 0.88 07/05/17 07/05/17 07/05/17 Range/Units 00:35 00:45 01:06 WBC (5.0-10.0) 10^3/uL RBC (4.6-6.2) 10^6/uL Hgb (14.0-18.0) g/dL Hct (40.0-54.0) % MCV (80-100) fL MCH (27.0-34.0) pg MCHC (33.0-35.0) g/dL Plt Count (150-450) 10^3/uL Neut % (Auto) (42.2-75.2) % Lymph % (Auto) (20.5-50.1) % [place] % (Auto) (2-8) % Eos % (Auto) (1.0-3.0) % Baso % (Auto) (0.0-1.0) % PT 19.4 H (9.0-12.0) SEC INR 1.9 H (0.9-1.2) ABG pH 7.32 L (7.35-7.45) ABG pCO2 42 (35-45) mmHg ABG pO2 75 (70-100) mmHg ABG HCO3 21.2 L (22-26) mmol/L ABG O2 Saturation 95 (95-100) % ABG Base Excess -4 L ((-2)-(+3)) mmol/L Edmundo Test yes O2 Delivery Device Non rebr mask Oxygen Flow Rate 3 Sodium (135-145) mmol/L Potassium (3.6-5.0) mmol/L Chloride (101-111) mmol/L Carbon Dioxide (21.0-31.0) mmol/L Anion Gap BUN (7-18) mg/dL Creatinine (0.6-1.3) mg/dL Est Cr Clr Drug Dosing Estimated GFR (MDRD) BUN/Creatinine Ratio Glucose (74-105) mg/dL POC Glucose 124 H (83-110) mg/dl Lactic Acid (0.5-2.2) mmol/L Calcium (8.4-10.2) mg/dl Total Bilirubin (0.2-1.0) mg/dL AST (10-42) IU/L ALT (10-60) IU/L Alkaline Phosphatase (42-121) IU/L Troponin I (0.00-0.02) ng/ml B-Natriuretic Peptide (0-100) pg/ml Total Protein (6.7-8.2) g/dl Albumin (3.2-5.5) g/dl Globulin Albumin/Globulin Ratio Meds: Medications Generic Name Dose Route Start Last Admin Trade Name Freq PRN Reason Stop Dose Admin Sodium Chloride 1,000 mls @ 125 mls/hr 07/05/17 03:00 Normal Saline IV .Q8H LISA - Radiology Interpretation Free Text/Narrative:: head CT negative CXR No acute process Departure - Departure Time of Disposition: 06:43 Disposition: Admitted As Inpatient 67 Condition: Fair Clinical Impression: Syncope Qualifiers: Syncope type: unspecified Qualified Code(s): R55 - Syncope and collapse Thoracic back pain Qualifiers: Chronicity: chronic Back pain laterality: unspecified Qualified Code(s): M54.6 - Pain in thoracic spine; G89.29 - Other chronic pain; G89.29 - Other chronic pain Atrial fibrillation Qualifiers: Atrial fibrillation type: unspecified Qualified Code(s): I48.91 - Unspecified atrial fibrillation - Discharge Information - My Orders Last 24 Hours: My Active Orders 07/05/17 00:30 CULTURE BLOOD [BC] Stat 07/05/17 00:49 EKG 12 Lead [EKG Documentation Completion] [] URGENT 07/05/17 00:53 Glucose [Blood Glucose Check, Bedside] [RC] ONETIME - Assessment/Plan Last 24 Hours: My Active Orders 07/05/17 00:30 CULTURE BLOOD [BC] Stat 07/05/17 00:49 EKG 12 Lead [EKG Documentation Completion] [RC] URGENT 07/05/17 00:53 Glucose [Blood Glucose Check, Bedside] [RC] ONETIME
[2017-07-05] MEDS ORDERED: Sodium Chloride 0.9% 1,000 ML IV SCH (03:00)
[2017-07-05] MEDS ORDERED: Aspirin 325 MG Tab.EC PO ONE (07:54)
[2017-07-05 08:24] VITALS: BP 89/55
--- NOTE | 2017-07-05 12:09 | PCM.LDHP ---
L&D History of Present Illness - General Date of Service: 07/05/17 Admit Problem/Dx: Admission Diagnosis/Problem Admission Diagnosis/Problem Source of Information: EMS, RN History Limitations: Reports: Altered Mental Status - History of Present Illness Introduction:: Patient was stated to have another syncopal episode at the [place] [facility] The patient himself thinks that he just fell. Denies of any chest pain. Denies nausea or vomiting In the emergency room he was noted to be intermittently hypotensive Severity: Moderate Improves with: Reports: None Worsens with: Reports: None - Related Data Allergies/Adverse Reactions: Allergies Allergy/AdvReac Type Severity Reaction Status Date / Time aspirin Allergy Bleeding Verified 07/05/17 00:32 Home Medications: Home Meds Omeprazole 20 mg PO DAILY 03/05/14 [History] Warfarin Sodium [Jantoven] 5 mg PO .FRI 06/08/16 [History] fentaNYL [Fentanyl] 25 mcg TOP Q3D 07/16/16 [History] Alendronate Sodium [Fosamax] 1 tab PO .SUN 03/28/17 [History] Calcium Carbonate/Vitamin D3 [Calcium 600 + Vit D Tablet] 1 tab PO BID 03/28/17 [History] DULoxetine HCl [Cymbalta] 1 tab PO DAILY 03/28/17 [History] Docusate Sodium [Colace] 1 cap PO BID PRN 03/28/17 [History] Fish Oil/[place]-3 Fatty Acids [Fish Oil 1,000 MG] 1,000 mg PO DAILY 03/28/17 [ History] Gabapentin [Neurontin] 100 mg PO TID 03/28/17 [History] Ipratropium [place] 2 sprays NASBOTH TID 03/28/17 [History] Warfarin Sodium 7.5 mg PO .. 03/28/17 [History] Furosemide 1 tab PO BID #30 04/17/17 [Rx] Acetaminophen 500 mg PO TID 05/18/17 [History] Metoprolol Tartrate [Lopressor] 25 mg PO DAILY 05/18/17 [History] Sennosides/Docusate Sodium [Senna S Tablet] 1 tab PO DAILY 05/18/17 [History] Simvastatin [Zocor] 40 mg PO BEDTIME 05/18/17 [History] oxyCODONE HCl/Acetaminophen [Percocet 10-325 mg Tablet] 1 tab PO Q6H PRN [History] Aspirin [Ecotrin] 325 mg PO DAILY #30 tab.ec 07/05/17 [Rx] Past Medical History - Past Health History Medical/Surgical History: Denies Medical/Surgical History (Coronary artery disease) HEENT History: Reports: Hard of Hearing, Impaired Vision Cardiovascular History: Reports: Afib, CAD, Heart Failure, High Cholesterol, Hypertension Other Cardiovascular History: NSTEMI; bradycardia Respiratory History: Reports: None Other Respiratory History: shortness of breath Gastrointestinal History: Reports: GERD Genitourinary History: Reports: Prostate Disorder Musculoskeletal History: Reports: None Other Musculoskeletal History: wedge compression fx lumbar & toracic spine Neurological History: Reports: None Psychiatric History: Reports: None Endocrine/Metabolic History: Reports: Diabetes, Type II Hematologic History: Reports: None Immunologic History: Reports: None Oncologic (Cancer) History: Reports: None Dermatologic History: Reports: None - Infectious Disease History Infectious Disease History: Reports: None - Past Surgical History Head Surgeries/Procedures: Reports: None Cardiovascular Surgical History: Reports: Coronary Artery Bypass, Pacer Social & Family History - Family History Family Medical History: Unobtainable - Tobacco Use Smoking Status *Q: Current Status Unknown Second Hand Smoke Exposure: No - Caffeine Use Caffeine Use: Reports: Coffee Caffeine Use Comment: unable to obtain - Alcohol Use Days Per Week of Alcohol Use: 0 - Recreational Drug Use Recreational Drug Use: No - Living Situation & Occupation Occupation: Retired H&P Review of Systems - Review of Systems: Review Of Systems: Unable To Obtain L&D Exam - Exam Exam: Not Obtained (See below) - Vital Signs Vital Signs: Last Vital Signs Temp 36.8 C 07/05/17 08:23 Pulse 71 07/05/17 08:23 Resp 20 07/05/17 08:23 BP 89/55 L 07/05/17 08:23 Pulse Ox 97 07/05/17 08:23 Weight: 65.771 kg - Exam General: Other (Confused. Intermittently disoriented) HEENT: Conjunctiva Clear Neck: Supple Lungs: Clear to Auscultation Cardiovascular: Regular Rate GI/Abdominal Exam: Normal Bowel Sounds, Soft Extremities: Normal Inspection, Non-Tender Skin: Warm - Patient Data Lab Results Last 24 hrs: Laboratory Results - last 24 hr 07/05/17 Range/Units 06:40 Troponin I 1.39 H* (0.00-0.02) ng/ml Result Diagrams: 07/05/17 00:35 07/05/17 00:35 - Problem List (1) Syncope and collapse SNOMED Code(s): 950706483 ICD Code: R55 - SYNCOPE AND COLLAPSE Status: Acute Orders Last 24hrs: Active Orders 24 hr Category Date Time Status Ready for Discharge [RC] PER UNIT ROUTINE Care 07/05/17 09:54 Active Assessment/Plan Comment:: #. Syncope This is probably cardiogenic syncope #. Acute non-ST elevation myocardial infarction The patient never complained of chest pain However he is confused and not a good historian. #Generalized weakness Reportedly patient has been feeling weak for the past few days Plan: Admit patient to medical floor Start intravenous fluids going at 75 mL an hour (Troponin every [address] patient on telemetry Aspirin 325 mg daily Discussed with family members Close hemodynamic monitoring
--- NOTE | 2017-07-05 12:20 | PCM.DCSUM1 ---
Discharge Summary - Hospital Course Free Text/Narrative:: see below - Discharge Data Discharge Date: 07/05/17 Discharge Disposition: DC/Tfer to Acute Hospital 02 Condition: Stable - Discharge Diagnosis/Problem(s) (1) Syncope and collapse SNOMED Code(s): 751206836 ICD Code: R55 - SYNCOPE AND COLLAPSE Status: Acute - Patient Instructions Diet: NPO Activity: Bedrest Driving: Do Not Drive Showering/Bathing: May Shower Notify Provider of: Fever, Increased Pain, Nausea and/or Vomiting - Discharge Plan Prescriptions/Med Rec: Aspirin [Ecotrin] 325 mg PO DAILY #30 tab.ec Home Medications: Home Meds Omeprazole 20 mg PO DAILY 03/05/14 [History] Warfarin Sodium [Jantoven] 5 mg PO .FRI 06/08/16 [History] fentaNYL [Fentanyl] 25 mcg TOP Q3D 07/16/16 [History] Alendronate Sodium [Fosamax] 1 tab PO .SUN 03/28/17 [History] Calcium Carbonate/Vitamin D3 [Calcium 600 + Vit D Tablet] 1 tab PO BID 03/28/17 [History] DULoxetine HCl [Cymbalta] 1 tab PO DAILY 03/28/17 [History] Docusate Sodium [Colace] 1 cap PO BID PRN 03/28/17 [History] Fish Oil/[place]-3 Fatty Acids [Fish Oil 1,000 MG] 1,000 mg PO DAILY 03/28/17 [ History] Gabapentin [Neurontin] 100 mg PO TID 03/28/17 [History] Ipratropium [place] 2 sprays NASBOTH TID 03/28/17 [History] Warfarin Sodium 7.5 mg PO .. 03/28/17 [History] Furosemide 1 tab PO BID #30 04/17/17 [Rx] Acetaminophen 500 mg PO TID 05/18/17 [History] Metoprolol Tartrate [Lopressor] 25 mg PO DAILY 05/18/17 [History] Sennosides/Docusate Sodium [Senna S Tablet] 1 tab PO DAILY 05/18/17 [History] Simvastatin [Zocor] 40 mg PO BEDTIME 05/18/17 [History] oxyCODONE HCl/Acetaminophen [Percocet 10-325 mg Tablet] 1 tab PO Q6H PRN [History] Aspirin [Ecotrin] 325 mg PO DAILY #30 tab.ec 07/05/17 [Rx] Referrals: PCP,Unobtain [Primary Care Provider] - - Discharge Summary/Plan Comment Discharge Summary/Plan Comment: #. Syncope This is probably cardiogenic syncope #. Acute non-ST elevation myocardial infarction The patient never complained of chest pain However he is confused and not a good historian. #Generalized weakness Reportedly patient has been feeling weak for the past few days The patient's cardiac enzymes came back elevated. The patient has remained asymptomatic. I will transfer the patient to a higher center for possible coronary intervention. Patient is hemodynamically stable at the time of discharge - Patient Data Vitals - Most Recent: Last Vital Signs Temp 36.8 C 07/05/17 08:23 Pulse 71 07/05/17 08:23 Resp 20 07/05/17 08:23 BP 89/55 L 07/05/17 08:23 Pulse Ox 97 07/05/17 08:23 Weight - Most Recent: 65.771 kg I&O - Last 24 hours: Intake & Output 07/04/17 07/05/17 07/05/17 22:59 06:59 14:59 Intake Total 734 Balance 734 Lab Results - Last 24 hrs: Laboratory Results - last 24 hr 07/05/17 Range/Units 06:40 Troponin I 1.39 H* (0.00-0.02) ng/ml Med Orders - Current: Current Medications Discontinued Medications Aspirin (Ecotrin) 325 mg PO ONETIME ONE Stop: 07/05/17 07:55 Last Admin: 07/05/17 08:15 Dose: 325 mg Sodium Chloride (Normal Saline) 1,000 mls @ 125 mls/hr IV .Q8H [facility] Last Admin: 07/05/17 04:45 Dose: 125 mls/hr *Q Meaningful Use (DIS) - VTE *Q VTE Criteria *Q: - Stroke *Q Stroke Criteria *Q: - AMI *Q AMI Criteria *Q:
--- NOTE | 2017-07-05 12:38 | PCM.HP ---
H&P History of Present Illness - General Date of Service: 07/05/17 Source of Information: EMS Notes Reviewed, RN History Limitations: Reports: Altered Mental Status - History of Present Illness Initial Comments - Free Text/Narative: Probable syncope Duration of Symptoms: Reports: Day(s): Location: Reports: Other (Syncope generalized) Improves with: Reports: None Worsens with: Reports: None Associated Symptoms: Reports: No Other Symptoms, Confusion - Related Data Allergies/Adverse Reactions: Allergies Allergy/AdvReac Type Severity Reaction Status Date / Time aspirin Allergy Bleeding Verified 07/05/17 00:32 Home Medications: Home Meds Omeprazole 20 mg PO DAILY 03/05/14 [History] Warfarin Sodium [Jantoven] 5 mg PO .FRI 06/08/16 [History] fentaNYL [Fentanyl] 25 mcg TOP Q3D 07/16/16 [History] Alendronate Sodium [Fosamax] 1 tab PO .SUN 03/28/17 [History] Calcium Carbonate/Vitamin D3 [Calcium 600 + Vit D Tablet] 1 tab PO BID 03/28/17 [History] DULoxetine HCl [Cymbalta] 1 tab PO DAILY 03/28/17 [History] Docusate Sodium [Colace] 1 cap PO BID PRN 03/28/17 [History] Fish Oil/[place]-3 Fatty Acids [Fish Oil 1,000 MG] 1,000 mg PO DAILY 03/28/17 [ History] Gabapentin [Neurontin] 100 mg PO TID 03/28/17 [History] Ipratropium [place] 2 sprays NASBOTH TID 03/28/17 [History] Warfarin Sodium 7.5 mg PO .. 03/28/17 [History] Furosemide 1 tab PO BID #30 04/17/17 [Rx] Acetaminophen 500 mg PO TID 05/18/17 [History] Metoprolol Tartrate [Lopressor] 25 mg PO DAILY 05/18/17 [History] Sennosides/Docusate Sodium [Senna S Tablet] 1 tab PO DAILY 05/18/17 [History] Simvastatin [Zocor] 40 mg PO BEDTIME 05/18/17 [History] oxyCODONE HCl/Acetaminophen [Percocet 10-325 mg Tablet] 1 tab PO Q6H PRN [History] Aspirin [Ecotrin] 325 mg PO DAILY #30 tab.ec 07/05/17 [Rx] Past Medical History - Past Health History Medical/Surgical History: Denies Medical/Surgical History (Probable coronary artery disease) HEENT History: Reports: Hard of Hearing, Impaired Vision Cardiovascular History: Reports: Afib, CAD, Heart Failure, High Cholesterol, Hypertension Other Cardiovascular History: NSTEMI; bradycardia Respiratory History: Reports: None Other Respiratory History: shortness of breath Gastrointestinal History: Reports: GERD Genitourinary History: Reports: Prostate Disorder Musculoskeletal History: Reports: None Other Musculoskeletal History: wedge compression fx lumbar & toracic spine Neurological History: Reports: None Psychiatric History: Reports: None Endocrine/Metabolic History: Reports: Diabetes, Type II Hematologic History: Reports: None Immunologic History: Reports: None Oncologic (Cancer) History: Reports: None Dermatologic History: Reports: None - Infectious Disease History Infectious Disease History: Reports: None - Past Surgical History Head Surgeries/Procedures: Reports: None Cardiovascular Surgical History: Reports: Coronary Artery Bypass, Pacer Social & Family History - Family History Family Medical History: Unobtainable - Tobacco Use Smoking Status *Q: Current Status Unknown Second Hand Smoke Exposure: No - Caffeine Use Caffeine Use: Reports: Coffee Caffeine Use Comment: unable to obtain - Alcohol Use Days Per Week of Alcohol Use: 0 - Recreational Drug Use Recreational Drug Use: No - Living Situation & Occupation Occupation: Retired H&P Review of Systems - Review of Systems: Review Of Systems: Unable To Obtain Exam - Exam Exam: See Below (Syncope) - Vital Signs Vital Signs: Last Vital Signs Temp 36.8 C 07/05/17 08:23 Pulse 71 07/05/17 08:23 Resp 20 07/05/17 08:23 BP 89/55 L 07/05/17 08:23 Pulse Ox 97 07/05/17 08:23 Weight: 65.771 kg - Exam HEENT: Conjunctiva Clear, Mucosa Moist & [place] Neck: Supple Lungs: Clear to Auscultation Cardiovascular: Regular Rate, Regular Rhythm GI/Abdominal Exam: Soft Extremities: No Pedal Edema Skin: Warm Neuro Extensive - Mental Status: Disorientation to Place, Disorientation to Time - Patient Data Lab Results Last 24 hrs: Laboratory Results - last 24 hr 07/05/17 Range/Units 06:40 Troponin I 1.39 H* (0.00-0.02) ng/ml Result Diagrams: 07/05/17 00:35 07/05/17 00:35 *Q Meaningful Use (ADM) - VTE *Q VTE Criteria *Q: - Stroke *Q Stroke Criteria *Q: - AMI *Q AMI Criteria *Q: - Problem List (1) Syncope and collapse SNOMED Code(s): 462042729 ICD Code: R55 - SYNCOPE AND COLLAPSE Status: Acute Problem List Initiated/Reviewed/Updated: Yes Orders Last 24hrs: Active Orders 24 hr Category Date Time Status Ready for Discharge [RC] PER UNIT ROUTINE Care 07/05/17 09:54 Active Assessment/Plan Comment:: #. Syncope This is probably cardiogenic syncope #. Acute non-ST elevation myocardial infarction The patient never complained of chest pain However he is confused and not a good historian. #Generalized weakness Reportedly patient has been feeling weak for the past few days Plan: Admit patient to medical floor Start intravenous fluids going at 75 mL an hour (Troponin every [address] patient on telemetry Aspirin 325 mg daily Discussed with family members Close hemodynamic monitoring
--- NOTE | 2017-07-06 09:09 | EKG ---
07/05/2017 - MACHELLE LEIGH - EKG shows atrial fibrillation with controlled ventricular response. [facility] /[id number]
== END 2017-07-05 11:09 ==
LOC: DL.ED 00:22 → DL.MS 03:16 → UNDOADMOB 04:30 → DL.MS 04:30 → UNDODISOB 11:09
PROVIDERS: ADMIT Hospitalist; ATTEND Hospitalist
DX: R55 Syncope and collapse (principal); I21.4 Non-ST elevation (NSTEMI) myocardial infarction; R53.1 Weakness; I25.10 Atherosclerotic heart disease of native coronary artery without angina pectoris; K21.9 Gastro-esophageal reflux disease without esophagitis; E11.9 Type 2 diabetes mellitus without complications; Z79.01 Long term (current) use of anticoagulants; Z79.899 Other long term (current) drug therapy; Z79.82 Long term (current) use of aspirin; Z88.8 Allergy status to other drugs, medicaments and biological substances; Z95.1 Presence of aortocoronary bypass graft; Z95.0 Presence of cardiac pacemaker; R06.02 Shortness of breath
CPT/HCPCS: 36415; 36600; 70450; 71045; 80053; 82272; 82803; 82962; 83605; 83880; 84484; 85025; 85610; 87040; 93005; 93010; 96360; 96361; 99284; 99285; A9270; G0378; J7030; 99219

== ENCOUNTER 2017-07-10 11:58 | Inpatient (IN) | payer MEDICARE, BC ==
[2017-07-10] MEDS ORDERED: diphenhydrAMINE/Zinc Acetate 2% Crm 28.4 GM Tube TOP PRN (16:29)
[2017-07-10] MEDS: Furosemide 20 MG Tab PO SCH (18:20)
[2017-07-10] MEDS ORDERED: Warfarin 2.5 MG Tab PO ONE (20:45)
[2017-07-10] MEDS: Check Patch TRDERM SCH (20:48)
[2017-07-10] MEDS: Calcium Carbonate/Vitamin D3 1250 MG-200 Unit Tab PO SCH (20:48)
[2017-07-10] MEDS: atorvaSTATin 20 MG Tab PO SCH (20:48)
[2017-07-10] MEDS: Gabapentin 100 MG Cap PO SCH (20:49)
[2017-07-10] MEDS: Midodrine 2.5 MG Tab PO SCH (20:50)
[2017-07-10] MEDS ORDERED: Non-Formulary Medication 1 Each (Fish Oil/Omega-3 Fatty Acids [Fish Oil 1,000 Mg] 1,000 MG PO SCH (21:00)
[2017-07-10] MEDS ORDERED: Lidocaine 2% Jelly 5 ML Tube TOP SCH (21:00)
[2017-07-10] MEDS: Insulin Aspart 100 Units/ML 3 ML Pen SUBCUT SCH (21:30)
--- NOTE | 2017-07-10 23:18 | HP ---
HISTORY OF PRESENT ILLNESS: Mr. Glaser is an 87-year-old male admitted under swing bed for strengthening. The patient presented to [facility] because of a fall with borderline blood pressure and elevated troponin, admitted as a case of NSTEMI. He also has a previous diagnosis of severe aortic stenosis. They tried doing angiogram last July 06; however, due to the tortuosity and calcification, stenting was not done. Continued medical therapy was recommended to monitor for ischemic or hemorrhagic complications. Currently on encounter with the patient, he denies any chest pain, shortness of breath, abdominal pain, bleeding, hematochezia, headache, dizziness, or palpitations. PAST MEDICAL HISTORY: Dyslipidemia, diverticulosis, diabetes mellitus, history of CAD, history of congestive heart failure, atrial fibrillation, severe aortic stenosis, acid reflux. PAST SURGICAL HISTORY: History of CABG and cholecystectomy. FAMILY HISTORY: Heart disease in the father and siblings. SOCIAL HISTORY: The patient lives in [facility]. No alcohol use. No recreational drug use. MEDICATIONS: Reviewed. REVIEW OF SYSTEMS: Ten systems were reviewed and were negative except for those mentioned above. PHYSICAL EXAMINATION: Vital Signs: Blood pressure 144/62, heart rate of 65 beats per minute, respirations 20 breaths per minute, oxygen saturation 96%, temperature 96.5. General Appearance: Awake, in no distress. Eyes: Anicteric sclerae. HEENT: Normocephalic, atraumatic. Cardiovascular: Regular rate and rhythm. Chest: Symmetric chest expansion. Lungs: Bilateral air entry. Abdomen: Soft. Normoactive bowel sounds. Extremities: No edema. Neurologic: Awake and oriented x3. LABORATORIES: Labs done today showed a CBC with a hemoglobin of 9.8, WBC 5.4, platelets 176. BMP showed sodium 131, potassium 4.4, creatinine 1.1, calcium 8.4, anion gap 4.2, GFR more than 60, magnesium is 1.9. INR was 2.0. ASSESSMENT AND PLAN: We will continue the rest of his medications today, especially aspirin, atorvastatin, metoprolol. For his history of CHF, on Lasix. His potassium has been good. Consult physical therapy, occupational therapy for strengthening. We will continue to follow the patient in the swing bed. [facility] /[id number]
[2017-07-11] MEDS: Omeprazole 20 MG Cap.CR PO SCH (05:54)
[2017-07-11] MEDS: Gabapentin 100 MG Cap PO SCH ×3 (09:01→22:30)
[2017-07-11] MEDS: Midodrine 2.5 MG Tab PO SCH ×2 (09:01→22:30)
[2017-07-11] MEDS: Aspirin 81 MG Tab.EC PO SCH (09:01)
[2017-07-11] MEDS: Calcium Carbonate/Vitamin D3 1250 MG-200 Unit Tab PO SCH ×2 (09:01→22:30)
[2017-07-11] MEDS: Metoprolol Succinate 25 MG Tab.ER PO SCH (09:02)
[2017-07-11] MEDS: DULoxetine 30 MG Cap PO SCH (09:03)
[2017-07-11] MEDS: Furosemide 20 MG Tab PO SCH ×2 (09:05→14:02)
[2017-07-11] MEDS: Insulin Aspart 100 Units/ML 3 ML Pen SUBCUT SCH ×4 (09:06→22:33)
[2017-07-11] MEDS: Docusate Sodium 100 MG Cap PO PRN (09:09)
[2017-07-11] MEDS: Check Patch TRDERM SCH ×2 (12:43→22:31)
[2017-07-11] MEDS: IPRATROPIUM BROMIDE 0.06% NASBOTH SCH ×3 (13:06→22:50)
[2017-07-11] MEDS ORDERED: Warfarin 2.5 MG Tab PO ONE (14:00)
[2017-07-11] MEDS ORDERED: Magnesium Hydroxide 400 MG/5 ML Susp 30 ML Cup PO ONE (20:35)
[2017-07-11] MEDS: atorvaSTATin 20 MG Tab PO SCH (22:30)
[2017-07-12] MEDS: Acetaminophen/oxyCODONE 325-5 MG Tab PO PRN ×2 (04:47→18:04)
[2017-07-12] MEDS: Omeprazole 20 MG Cap.CR PO SCH (05:08)
[2017-07-12] MEDS: Calcium Carbonate/Vitamin D3 1250 MG-200 Unit Tab PO SCH ×2 (09:26→21:06)
[2017-07-12] MEDS: Check Patch TRDERM SCH ×2 (09:27→21:07)
[2017-07-12] MEDS: Aspirin 81 MG Tab.EC PO SCH (09:28)
[2017-07-12] MEDS: DULoxetine 30 MG Cap PO SCH (09:28)
[2017-07-12] MEDS: Midodrine 2.5 MG Tab PO SCH ×2 (09:29→21:09)
[2017-07-12] MEDS: Gabapentin 100 MG Cap PO SCH ×3 (09:30→21:06)
[2017-07-12] MEDS: Metoprolol Succinate 25 MG Tab.ER PO SCH (09:31)
[2017-07-12] MEDS: Insulin Aspart 100 Units/ML 3 ML Pen SUBCUT SCH ×4 (09:31→21:52)
[2017-07-12] MEDS: IPRATROPIUM BROMIDE 0.06% NASBOTH SCH ×3 (09:57→21:15)
[2017-07-12] MEDS: Furosemide 20 MG Tab PO SCH ×2 (11:55→13:54)
[2017-07-12] MEDS: Lidocaine 5% 700 MG Patch TOP SCH (12:11)
[2017-07-12] MEDS ORDERED: Warfarin 2 MG Tab PO ONE (14:00)
[2017-07-12] MEDS: Bisacodyl 10 MG Supp RECTAL PRN (17:00)
[2017-07-12] MEDS: atorvaSTATin 20 MG Tab PO SCH (21:06)
[2017-07-13] MEDS: Omeprazole 20 MG Cap.CR PO SCH (06:02)
[2017-07-13] MEDS: Acetaminophen/oxyCODONE 325-5 MG Tab PO PRN ×2 (07:48→20:22)
[2017-07-13] MEDS ORDERED: fentaNYL 25 MCG/HR Transdermal Patch TOP SCH (09:00)
[2017-07-13] MEDS: Insulin Aspart 100 Units/ML 3 ML Pen SUBCUT SCH ×4 (09:22→22:41)
[2017-07-13] MEDS: DULoxetine 30 MG Cap PO SCH (09:29)
[2017-07-13] MEDS: Aspirin 81 MG Tab.EC PO SCH ×2 (09:30→10:41)
[2017-07-13] MEDS: Calcium Carbonate/Vitamin D3 1250 MG-200 Unit Tab PO SCH ×2 (09:30→22:42)
[2017-07-13] MEDS: Gabapentin 100 MG Cap PO SCH ×3 (09:30→22:40)
[2017-07-13] MEDS: Midodrine 2.5 MG Tab PO SCH ×2 (09:30→22:39)
[2017-07-13] MEDS: Lidocaine 5% 700 MG Patch TOP SCH (09:30)
[2017-07-13] MEDS: IPRATROPIUM BROMIDE 0.06% NASBOTH SCH ×3 (09:31→22:43)
[2017-07-13] MEDS: Check Patch TRDERM SCH ×2 (09:31→22:47)
[2017-07-13] MEDS ORDERED: Clopidogrel 75 MG Tab PO ONE (10:39)
[2017-07-13] MEDS: Furosemide 20 MG Tab PO SCH ×2 (10:42→11:03)
[2017-07-13] MEDS: Metoprolol Succinate 25 MG Tab.ER PO SCH (11:04)
[2017-07-13] MEDS: oxyCODONE 5 MG Tab PO PRN ×2 (11:44→20:21)
[2017-07-13] MEDS ORDERED: Warfarin 5 MG Tab PO ONE (14:00)
[2017-07-13] MEDS: atorvaSTATin 20 MG Tab PO SCH (22:39)
[2017-07-14] MEDS: Omeprazole 20 MG Cap.CR PO SCH (06:11)
[2017-07-14] MEDS: Acetaminophen/oxyCODONE 325-5 MG Tab PO PRN ×2 (06:41→12:00)
[2017-07-14] MEDS: oxyCODONE 5 MG Tab PO PRN ×2 (06:41→11:59)
[2017-07-14] MEDS: Calcium Carbonate/Vitamin D3 1250 MG-200 Unit Tab PO SCH ×2 (09:52→22:47)
[2017-07-14] MEDS: DULoxetine 30 MG Cap PO SCH (09:52)
[2017-07-14] MEDS: Midodrine 2.5 MG Tab PO SCH ×2 (09:52→22:49)
[2017-07-14] MEDS: Gabapentin 100 MG Cap PO SCH ×3 (09:52→22:49)
[2017-07-14] MEDS: Furosemide 20 MG Tab PO SCH (09:53)
[2017-07-14] MEDS: Clopidogrel 75 MG Tab PO SCH (09:55)
[2017-07-14] MEDS: Insulin Aspart 100 Units/ML 3 ML Pen SUBCUT SCH ×4 (09:55→22:49)
[2017-07-14] MEDS: Lidocaine 5% 700 MG Patch TOP SCH (09:55)
[2017-07-14] MEDS: Metoprolol Succinate 25 MG Tab.ER PO SCH (09:58)
[2017-07-14] MEDS: IPRATROPIUM BROMIDE 0.06% NASBOTH SCH ×3 (09:58→22:51)
[2017-07-14] MEDS: Bisacodyl 10 MG Supp RECTAL PRN (11:59)
[2017-07-14] MEDS: fentaNYL 25 MCG/HR Transdermal Patch TOP SCH (13:42)
[2017-07-14] MEDS ORDERED: fentaNYL 25 MCG/HR Transdermal Patch TOP SCH (13:45)
[2017-07-14] MEDS: Check Patch TRDERM SCH ×2 (13:46→22:48)
[2017-07-14] MEDS ORDERED: Warfarin 5 MG Tab PO ONE (14:00)
[2017-07-14] MEDS: atorvaSTATin 20 MG Tab PO SCH (22:48)
[2017-07-14] MEDS: Bisacodyl 10 MG Supp RECTAL SCH (22:48)
[2017-07-15] MEDS: Omeprazole 20 MG Cap.CR PO SCH (06:39)
[2017-07-15] MEDS: Metoprolol Succinate 25 MG Tab.ER PO SCH (08:38)
[2017-07-15] MEDS: Furosemide 20 MG Tab PO SCH (08:39)
[2017-07-15] MEDS: Midodrine 2.5 MG Tab PO SCH ×2 (08:39→21:14)
[2017-07-15] MEDS: Clopidogrel 75 MG Tab PO SCH (08:40)
[2017-07-15] MEDS: Calcium Carbonate/Vitamin D3 1250 MG-200 Unit Tab PO SCH ×2 (08:40→21:12)
[2017-07-15] MEDS: DULoxetine 30 MG Cap PO SCH (08:40)
[2017-07-15] MEDS: Check Patch TRDERM SCH ×2 (08:40→21:13)
[2017-07-15] MEDS: Gabapentin 100 MG Cap PO SCH ×3 (08:40→21:15)
[2017-07-15] MEDS: Insulin Aspart 100 Units/ML 3 ML Pen SUBCUT SCH ×4 (08:41→21:15)
[2017-07-15] MEDS: IPRATROPIUM BROMIDE 0.06% NASBOTH SCH ×3 (08:43→21:22)
[2017-07-15] MEDS: Lidocaine 5% 700 MG Patch TOP SCH (08:46)
[2017-07-15] MEDS: Hydrocortisone 1% Crm 30 GM Tube TOP SCH ×2 (13:08→21:13)
[2017-07-15] MEDS ORDERED: Warfarin 5 MG Tab PO ONE (14:00)
[2017-07-15] MEDS: Bisacodyl 10 MG Supp RECTAL SCH (21:13)
[2017-07-15] MEDS: atorvaSTATin 20 MG Tab PO SCH (21:14)
[2017-07-16] MEDS: oxyCODONE 5 MG Tab PO PRN ×2 (06:29→16:25)
[2017-07-16] MEDS: Acetaminophen/oxyCODONE 325-5 MG Tab PO PRN ×2 (06:30→16:26)
[2017-07-16] MEDS: Omeprazole 20 MG Cap.CR PO SCH (06:31)
[2017-07-16] MEDS: Morphine 2 MG/ML Syringe IVPUSH PRN (08:29)
[2017-07-16] MEDS: Insulin Aspart 100 Units/ML 3 ML Pen SUBCUT SCH ×4 (09:06→21:38)
[2017-07-16] MEDS: diphenhydrAMINE 25 MG Tab PO PRN (10:01)
[2017-07-16] MEDS: Lidocaine 5% 700 MG Patch TOP SCH (10:01)
[2017-07-16] MEDS: DULoxetine 30 MG Cap PO SCH (10:02)
[2017-07-16] MEDS: Midodrine 2.5 MG Tab PO SCH ×2 (10:02→21:26)
[2017-07-16] MEDS: Furosemide 20 MG Tab PO SCH (10:02)
[2017-07-16] MEDS: Clopidogrel 75 MG Tab PO SCH (10:03)
[2017-07-16] MEDS: Calcium Carbonate/Vitamin D3 1250 MG-200 Unit Tab PO SCH ×2 (10:03→21:25)
[2017-07-16] MEDS: Metoprolol Succinate 25 MG Tab.ER PO SCH (10:03)
[2017-07-16] MEDS: Gabapentin 100 MG Cap PO SCH ×3 (10:03→21:25)
[2017-07-16] MEDS: Hydrocortisone 1% Crm 30 GM Tube TOP SCH ×2 (10:05→21:45)
[2017-07-16] MEDS: IPRATROPIUM BROMIDE 0.06% NASBOTH SCH ×3 (10:06→21:41)
[2017-07-16] MEDS: Check Patch TRDERM SCH ×2 (10:07→21:30)
[2017-07-16] MEDS ORDERED: Warfarin 5 MG, Warfarin 2.5 MG PO SCH ×2 (14:00)
[2017-07-16] MEDS: Bisacodyl 10 MG Supp RECTAL PRN (16:22)
[2017-07-16] MEDS: atorvaSTATin 20 MG Tab PO SCH (21:25)
[2017-07-16] MEDS: Bisacodyl 10 MG Supp RECTAL SCH (21:27)
[2017-07-17] MEDS: Omeprazole 20 MG Cap.CR PO SCH (05:43)
[2017-07-17] MEDS: Morphine 2 MG/ML Syringe IVPUSH PRN ×2 (08:24→13:46)
[2017-07-17] MEDS: Sodium Chloride 0.9% 10 ML Syringe FLUSH PRN ×2 (08:25→13:47)
[2017-07-17] MEDS: Gabapentin 100 MG Cap PO SCH ×3 (08:28→21:26)
[2017-07-17] MEDS: DULoxetine 30 MG Cap PO SCH (08:28)
[2017-07-17] MEDS: Clopidogrel 75 MG Tab PO SCH (08:29)
[2017-07-17] MEDS: Calcium Carbonate/Vitamin D3 1250 MG-200 Unit Tab PO SCH ×2 (08:30→21:27)
[2017-07-17] MEDS: Midodrine 2.5 MG Tab PO SCH ×2 (08:30→21:26)
[2017-07-17] MEDS: fentaNYL 25 MCG/HR Transdermal Patch TOP SCH (08:30)
[2017-07-17] MEDS: Furosemide 20 MG Tab PO SCH (08:30)
[2017-07-17] MEDS: Lidocaine 5% 700 MG Patch TOP SCH (08:33)
[2017-07-17] MEDS: Check Patch TRDERM SCH ×2 (08:35→21:32)
[2017-07-17] MEDS: IPRATROPIUM BROMIDE 0.06% NASBOTH SCH ×3 (08:37→21:27)
[2017-07-17] MEDS: Insulin Aspart 100 Units/ML 3 ML Pen SUBCUT SCH ×4 (08:37→21:33)
[2017-07-17] MEDS: Hydrocortisone 1% Crm 30 GM Tube TOP SCH ×2 (08:43→21:27)
[2017-07-17] MEDS: Metoprolol Succinate 25 MG Tab.ER PO SCH (08:47)
[2017-07-17] MEDS ORDERED: Gabapentin 100 MG Cap PO SCH (09:30)
[2017-07-17] MEDS: oxyCODONE 5 MG Tab PO PRN ×2 (10:43→21:29)
--- NOTE | 2017-07-17 11:46 | PN ---
DATE: 07/17/2017 HISTORY OF PRESENT ILLNESS: Mr. Jailyn Esqueda is an 87-year-old male with medical history significant for hypertension, hyperlipidemia, type 2 diabetes mellitus, coronary artery disease, congestive heart failure, atrial fibrillation, severe aortic stenosis, gastroesophageal reflux disease, was recently admitted with non ST elevation myocardial infarction, but could not be intervened secondary to tortuous coronary arteries disease, so was transferred to the swing bed. At this time, patient complains of having pain to the right heel. He grades the pain as 4 to 5/10 in intensity, which gets aggravated on ambulation and movement, relieved with pain medication, nonradiating type of pain, not associated with nausea or vomiting. Denies any chest pain. No shortness of breath. No abdominal pain. REVIEW OF SYSTEMS: Cardiovascular, respiratory, gastrointestinal, neurology, constitutional were all evaluated. PHYSICAL EXAMINATION: Vital Signs: Temperature of 98.3, pulse of 66, blood pressure 102/53, respiratory rate of 18, saturating at 100% on room air. General Appearance: The patient is awake and alert. Follows commands spontaneously. Cardiovascular System: S1 and S2 heard with normal intensity. No gallops. Respiratory System: Clear to auscultation bilaterally. No wheeze. No crepitations. Abdomen: Soft. Bowel sounds positive. Nontender. No rigidity. Extremities: No edema bilateral lower extremities. No ulcers noted on the lower extremities. Neurology: No gross focal neurological deficit. Skin: The patient is noted to have bruise on the right hip site. MEDICATIONS: 1. Fosamax 70 mg daily. 2. Lipitor 40 mg at bedtime. 3. Bisacodyl 10 mg rectal as needed for constipation. 4. Plavix 75 mg daily. 5. Docusate sodium 100 mg twice a day as needed for constipation. 6. Cymbalta 30 mg daily. 7. Fentanyl patch 25 mcg daily. 8. Lasix 20 mg daily. 9. Neurontin 100 mg 3 times a day. 10.NovoLog supplemental scale. 11.Toprol-XL 12.5 mg daily. 12.Midodrine 5 mg twice a day. 13.Morphine 1 mg IV every 4 hours as needed for pain. 14.Omeprazole 20 mg daily. 15.Oxycodone 5 mg every 6 hours as needed for pain. 16.Percocet every 6 hours as needed. 17.Coumadin. Pharmacy to dose. LABORATORY DATA: WBC 7, hemoglobin 8.5, hematocrit 25.8, platelet count 245. INR of 2.2. ASSESSMENT: 1. Coronary artery disease. 2. Chronic congestive heart failure. 3. Atrial fibrillation, on chronic anticoagulation with Coumadin. 4. Hyperlipidemia. 5. Recent history of [id number] myocardial infarction. PLAN: 1. Coronary artery disease. The patient had a recent history of non-ST- elevation myocardial infarction. Continue with current treatment plan. Continue with aspirin, Plavix, statin, beta brody. The patient denies any ongoing chest pains. We will closely follow. 2. Right heel pain. The patient is complaining of right heel pain. We will try to keep the foot offload. We will continue current pain medications. One might consider getting an x-ray of the right foot to make sure there is no underlying fracture which is less likely at this time. We will also have him on Neurontin to make sure patient does not have any neuropathic pain with his underlying diabetes mellitus, and we will closely follow. He is currently on Cymbalta, continue the same. 3. Hypertension. The patient's blood pressure seems to be on the lower side. He is currently on Toprol-XL. The patient remains asymptomatic, we will closely follow. 4. Type 2 diabetes mellitus. Check his fingersticks with each meals. Have him on supplemental scale insulin as needed for additional coverage of his blood glucose. 5. Deep vein thrombosis prophylaxis. The patient is currently on Coumadin, continue the same. 6. Continue with Physical Therapy and Occupational Therapy. [facility] /[id number]
[2017-07-17] MEDS: Bisacodyl 10 MG Supp RECTAL SCH ×2 (13:45→21:27)
[2017-07-17] MEDS ORDERED: Warfarin 2.5 MG Tab PO ONE (14:00)
[2017-07-17] MEDS: Docusate Sodium 100 MG Cap PO PRN (17:19)
[2017-07-17] MEDS: Magnesium Hydroxide 400 MG/5 ML Susp 30 ML Cup PO PRN (17:19)
[2017-07-17] MEDS: atorvaSTATin 20 MG Tab PO SCH (21:26)
[2017-07-17] MEDS: Acetaminophen/oxyCODONE 325-5 MG Tab PO PRN (21:28)
[2017-07-18] MEDS: Omeprazole 20 MG Cap.CR PO SCH (06:08)
[2017-07-18] MEDS: oxyCODONE 5 MG Tab PO PRN ×2 (06:08→13:56)
[2017-07-18] MEDS: Acetaminophen/oxyCODONE 325-5 MG Tab PO PRN ×2 (06:09→13:57)
[2017-07-18] MEDS: Midodrine 2.5 MG Tab PO SCH ×2 (10:33→20:41)
[2017-07-18] MEDS: Calcium Carbonate/Vitamin D3 1250 MG-200 Unit Tab PO SCH ×2 (10:33→20:41)
[2017-07-18] MEDS: Gabapentin 100 MG Cap PO SCH ×4 (10:34→20:41)
[2017-07-18] MEDS: Furosemide 20 MG Tab PO SCH (10:34)
[2017-07-18] MEDS: Docusate Sodium 100 MG Cap PO PRN (10:34)
[2017-07-18] MEDS: Insulin Aspart 100 Units/ML 3 ML Pen SUBCUT SCH ×4 (10:34→22:00)
[2017-07-18] MEDS: Clopidogrel 75 MG Tab PO SCH (10:34)
[2017-07-18] MEDS: DULoxetine 30 MG Cap PO SCH (10:35)
[2017-07-18] MEDS: Lidocaine 5% 700 MG Patch TOP SCH (10:36)
[2017-07-18] MEDS: Check Patch TRDERM SCH ×2 (10:39→20:51)
[2017-07-18] MEDS: IPRATROPIUM BROMIDE 0.06% NASBOTH SCH ×3 (10:40→20:52)
[2017-07-18] MEDS: Metoprolol Succinate 25 MG Tab.ER PO SCH (10:42)
[2017-07-18] MEDS: Warfarin 2 MG Tab PO SCH (13:55)
[2017-07-18] MEDS: Hydrocortisone 2.5% Crm 30 GM Tube TOP PRN (13:58)
[2017-07-18] MEDS: Hydrocortisone 1% Crm 30 GM Tube TOP SCH (14:44)
[2017-07-18] MEDS: Calcium Carbonate 500 MG Tab.Chew PO PRN (18:24)
[2017-07-18] MEDS: atorvaSTATin 20 MG Tab PO SCH (20:40)
[2017-07-18] MEDS: Bisacodyl 10 MG Supp RECTAL SCH (20:43)
[2017-07-18] MEDS: Sodium Chloride 0.9% 10 ML Syringe FLUSH PRN (23:07)
[2017-07-19] MEDS: Omeprazole 20 MG Cap.CR PO SCH (06:28)
[2017-07-19 07:33] LABS: ANION GAP 11.3; CHLORIDE,CL 96 mmol/L (101-111); SODIUM,NA 129 mmol/L (135-145)
[2017-07-19] MEDS: Insulin Aspart 100 Units/ML 3 ML Pen SUBCUT SCH ×4 (08:49→21:35)
[2017-07-19] MEDS: Lidocaine 5% 700 MG Patch TOP SCH (09:06)
[2017-07-19] MEDS: Gabapentin 100 MG Cap PO SCH ×4 (09:07→21:37)
[2017-07-19] MEDS: Calcium Carbonate/Vitamin D3 1250 MG-200 Unit Tab PO SCH ×2 (09:07→21:38)
[2017-07-19] MEDS: Furosemide 20 MG Tab PO SCH (09:07)
[2017-07-19] MEDS: DULoxetine 30 MG Cap PO SCH (09:07)
[2017-07-19] MEDS: Midodrine 2.5 MG Tab PO SCH ×2 (09:07→21:38)
[2017-07-19] MEDS: Clopidogrel 75 MG Tab PO SCH (09:07)
[2017-07-19] MEDS: Check Patch TRDERM SCH ×2 (09:08→21:39)
[2017-07-19] MEDS: IPRATROPIUM BROMIDE 0.06% NASBOTH SCH ×3 (09:09→21:40)
[2017-07-19] MEDS: Acetaminophen/oxyCODONE 325-5 MG Tab PO PRN (09:50)
[2017-07-19] MEDS: oxyCODONE 5 MG Tab PO PRN (09:51)
[2017-07-19] MEDS: Bisacodyl 10 MG Supp RECTAL SCH (12:56)
[2017-07-19] MEDS: Warfarin 2 MG Tab PO SCH (14:25)
[2017-07-19] MEDS: Docusate Sodium 100 MG Cap PO PRN (16:00)
[2017-07-19] MEDS: Magnesium Hydroxide 400 MG/5 ML Susp 30 ML Cup PO PRN (16:00)
[2017-07-19] MEDS: atorvaSTATin 10 MG Tab PO SCH (21:37)
[2017-07-19] MEDS: Hydrocortisone 2.5% Crm 30 GM Tube TOP PRN (21:51)
[2017-07-19] MEDS: Sodium Chloride 0.9% 10 ML Syringe FLUSH PRN (22:01)
[2017-07-20] MEDS: Omeprazole 20 MG Cap.CR PO SCH (05:41)
[2017-07-20] MEDS: Insulin Aspart 100 Units/ML 3 ML Pen SUBCUT SCH ×4 (09:44→20:49)
[2017-07-20] MEDS: Midodrine 2.5 MG Tab PO SCH ×2 (09:46→20:40)
[2017-07-20] MEDS: Clopidogrel 75 MG Tab PO SCH (09:46)
[2017-07-20] MEDS: DULoxetine 30 MG Cap PO SCH (09:46)
[2017-07-20] MEDS: Gabapentin 100 MG Cap PO SCH ×4 (09:46→20:40)
[2017-07-20] MEDS: Calcium Carbonate/Vitamin D3 1250 MG-200 Unit Tab PO SCH ×2 (09:46→20:40)
[2017-07-20] MEDS: fentaNYL 25 MCG/HR Transdermal Patch TOP SCH (09:47)
[2017-07-20] MEDS: Bisacodyl 10 MG Supp RECTAL SCH (09:48)
[2017-07-20] MEDS: Lidocaine 5% 700 MG Patch TOP SCH (09:48)
[2017-07-20] MEDS: IPRATROPIUM BROMIDE 0.06% NASBOTH SCH ×3 (09:56→20:42)
[2017-07-20] MEDS: Check Patch TRDERM SCH ×2 (09:57→22:25)
[2017-07-20 11:37] LABS: ANION GAP 12.2; CHLORIDE,CL 96 mmol/L (101-111); SODIUM,NA 129 mmol/L (135-145)
[2017-07-20] MEDS: Warfarin 2 MG Tab PO SCH (13:54)
[2017-07-20] MEDS: Polyethylene Glycol 3350 Powder 17 GM Packet PO SCH (17:02)
[2017-07-20] MEDS: Hydrocortisone 2.5% Crm 30 GM Tube TOP PRN (18:58)
[2017-07-20] MEDS: atorvaSTATin 10 MG Tab PO SCH (20:39)
[2017-07-21] MEDS: Omeprazole 20 MG Cap.CR PO SCH (05:44)
[2017-07-21] MEDS: Clopidogrel 75 MG Tab PO SCH (08:59)
[2017-07-21] MEDS: Midodrine 2.5 MG Tab PO SCH ×2 (08:59→20:35)
[2017-07-21] MEDS: DULoxetine 30 MG Cap PO SCH (08:59)
[2017-07-21] MEDS: Check Patch TRDERM SCH ×2 (09:00→20:46)
[2017-07-21] MEDS: Gabapentin 100 MG Cap PO SCH ×4 (09:00→20:29)
[2017-07-21] MEDS: Calcium Carbonate/Vitamin D3 1250 MG-200 Unit Tab PO SCH ×2 (09:00→20:33)
[2017-07-21] MEDS: Insulin Aspart 100 Units/ML 3 ML Pen SUBCUT SCH ×4 (09:01→20:49)
[2017-07-21] MEDS: Polyethylene Glycol 3350 Powder 17 GM Packet PO SCH (09:01)
[2017-07-21] MEDS: Bisacodyl 10 MG Supp RECTAL SCH (09:01)
[2017-07-21] MEDS: Lidocaine 5% 700 MG Patch TOP SCH (09:01)
[2017-07-21] MEDS: IPRATROPIUM BROMIDE 0.06% NASBOTH SCH ×3 (09:02→20:36)
[2017-07-21] MEDS: Sodium Chloride 1 GM Tab PO SCH ×2 (11:27→20:29)
[2017-07-21] MEDS: Calcium Carbonate 500 MG Tab.Chew PO PRN (12:34)
[2017-07-21] MEDS: Warfarin 2 MG Tab PO SCH (14:07)
--- NOTE | 2017-07-21 15:05 | PN ---
DATE: 07/21/2017 HISTORY OF PRESENT ILLNESS: Mr. Jailyn Grayson is an 87-year-old male with medical history significant for hypertension, hyperlipidemia, type 2 diabetes mellitus, coronary artery disease, congestive heart failure, atrial fibrillation, severe aortic stenosis, gastroesophageal reflux disease, recently diagnosed with a non ST elevation myocardial infarction, but could not do any interventions secondary to tortuous coronary artery disease. For the last 24 hours, the patient denies any complaints of chest pain. No shortness of breath. No abdominal pain. No nausea. No vomiting. The patient noted to have constipation. He was started on stool softeners. He continues to have low back pain, and tingling to his right heel. We added Neurontin and increased the Neurontin to 200 at night. REVIEW OF SYSTEMS: Cardiovascular, respiratory, gastrointestinal, neurology, constitutional were all evaluated. PHYSICAL EXAMINATION: Vital Signs: Temperature of 97.4, pulse of 66, blood pressure of 92/48, respiratory rate 20, saturating 97% on room air. General Appearance: The patient is well oriented to time, place, and person. Follows commands spontaneously. Cardiovascular System: S1, S2 heard with normal intensity. No gallops. Respiratory System: Clear to auscultation bilaterally. No wheeze. No crepitations. Abdomen: Soft. Bowel sounds positive. Nontender. No rigidity. Extremities: No edema in bilateral lower extremities. MEDICATIONS: Reviewed. Continue with: 1. Fosamax 70 mg once a week. 2. Artificial Tears. 3. Lipitor 40 mg at bedtime. 4. Dulcolax suppository as needed for constipation. 5. Tums 500 mg every 4 hours as needed for heartburn. 6. Plavix 75 mg daily. 7. Diphenhydramine 25 mg twice a day as needed for itching. 8. Cymbalta 30 mg daily. 9. Fentanyl patch 25 mcg topical. 10.Neurontin 100 mg 3 times a day along with 100 mg at bedtime. 11.Hydrocortisone twice a day as needed. 12.NovoLog supplemental scale. 13.Milk of magnesia 30 mL twice a day as needed for constipation. 14.Midodrine 5 mg twice a day. 15.Morphine 1 mg IV every 4 hours as needed for pain. 16.Omeprazole 20 mg daily. 17.Oxycodone 5 mg every 6 hours as needed for pain. 18.Percocet 5/325 mg as needed for pain. 19.MiraLax 17 g daily. 20.Coumadin, pharmacy to dose. LABORATORY DATA: INR 2.3. ASSESSMENT: 1. Generalized debility, needing Physical Therapy and Occupational Therapy. 2. Recent diagnosis of [id number] myocardial infarction. 3. Coronary artery disease. 4. Chronic congestive heart failure. 5. Atrial fibrillation. 6. Chronic anticoagulation with Coumadin. 7. Hyperlipidemia. 8. Neuropathy. PLAN: 1. Generalized debility. The patient is continued with Physical Therapy and Occupational Therapy. The patient uses a walker to ambulate around, continue same. 2. Chronic kidney disease. The patient recently diagnosed with non ST- elevation myocardial infarction. The patient has remains stable. Continue with Plavix. Continue with current treatment plan. We could not add Sinemet or beta-brody at this time secondary to hypotensive episode. He was on Toprol-XL 12.5 mg daily, but we had to hold it secondary to hypotensive episode. We will closely follow the patient. 3. Atrial fibrillation. Rate controlled at this time. Continue with Coumadin for therapeutic INR of 2 to 3. 4. Deep vein thrombosis prophylaxis. The patient is currently on Coumadin. [facility] /[id number]
[2017-07-21] MEDS: atorvaSTATin 10 MG Tab PO SCH (20:28)
[2017-07-22] MEDS: Omeprazole 20 MG Cap.CR PO SCH (05:35)
[2017-07-22 07:17] LABS: ANION GAP 10.7; CHLORIDE,CL 99 mmol/L (101-111); SODIUM,NA 132 mmol/L (135-145)
[2017-07-22] MEDS: Hydrocortisone 2.5% Crm 30 GM Tube TOP PRN (07:49)
[2017-07-22] MEDS: Clopidogrel 75 MG Tab PO SCH ×2 (07:51→08:04)
[2017-07-22] MEDS: oxyCODONE 5 MG Tab PO PRN ×2 (07:52→20:48)
[2017-07-22] MEDS: Acetaminophen/oxyCODONE 325-5 MG Tab PO PRN ×2 (07:52→20:48)
[2017-07-22] MEDS: Gabapentin 100 MG Cap PO SCH ×5 (07:54→20:48)
[2017-07-22] MEDS: DULoxetine 30 MG Cap PO SCH ×2 (07:54→08:03)
[2017-07-22] MEDS: Midodrine 2.5 MG Tab PO SCH ×3 (07:55→20:48)
[2017-07-22] MEDS: Sodium Chloride 1 GM Tab PO SCH ×3 (07:57→20:48)
[2017-07-22] MEDS: Calcium Carbonate/Vitamin D3 1250 MG-200 Unit Tab PO SCH ×3 (07:57→20:48)
[2017-07-22] MEDS: Polyethylene Glycol 3350 Powder 17 GM Packet PO SCH (08:00)
[2017-07-22] MEDS: Lidocaine 5% 700 MG Patch TOP SCH (08:00)
[2017-07-22] MEDS: Bisacodyl 10 MG Supp RECTAL SCH (08:00)
[2017-07-22] MEDS: Check Patch TRDERM SCH ×2 (08:02→21:28)
[2017-07-22] MEDS: Insulin Aspart 100 Units/ML 3 ML Pen SUBCUT SCH ×4 (08:03→20:58)
[2017-07-22] MEDS: IPRATROPIUM BROMIDE 0.06% NASBOTH SCH ×3 (08:04→20:59)
[2017-07-22] MEDS: Warfarin 2 MG Tab PO SCH (14:13)
[2017-07-22] MEDS: Magnesium Hydroxide 400 MG/5 ML Susp 30 ML Cup PO PRN (14:14)
[2017-07-22] MEDS: Carboxymethylcellulose Sodium 1% Ophth Gel 0.4 ML UD EYEBOTH PRN (14:21)
[2017-07-22] MEDS: diphenhydrAMINE 25 MG Tab PO PRN (20:47)
[2017-07-22] MEDS: Docusate Sodium 100 MG Cap PO PRN (20:48)
[2017-07-22] MEDS: atorvaSTATin 10 MG Tab PO SCH (20:48)
[2017-07-23] MEDS: Omeprazole 20 MG Cap.CR PO SCH (06:07)
[2017-07-23] MEDS: Bisacodyl 10 MG Supp RECTAL SCH ×2 (07:48→08:09)
[2017-07-23] MEDS: Polyethylene Glycol 3350 Powder 17 GM Packet PO SCH ×2 (07:48→08:11)
[2017-07-23] MEDS: Lidocaine 5% 700 MG Patch TOP SCH ×2 (07:51→08:09)
[2017-07-23] MEDS: oxyCODONE 5 MG Tab PO PRN ×3 (08:00→21:09)
[2017-07-23] MEDS: Acetaminophen/oxyCODONE 325-5 MG Tab PO PRN ×3 (08:01→21:09)
[2017-07-23] MEDS: Gabapentin 100 MG Cap PO SCH ×4 (08:04→21:08)
[2017-07-23] MEDS: Docusate Sodium 100 MG Cap PO PRN ×2 (08:04→21:09)
[2017-07-23] MEDS: Clopidogrel 75 MG Tab PO SCH (08:04)
[2017-07-23] MEDS: DULoxetine 30 MG Cap PO SCH (08:05)
[2017-07-23] MEDS: Calcium Carbonate/Vitamin D3 1250 MG-200 Unit Tab PO SCH ×2 (08:06→21:08)
[2017-07-23] MEDS: Sodium Chloride 1 GM Tab PO SCH ×2 (08:06→21:08)
[2017-07-23] MEDS: Midodrine 2.5 MG Tab PO SCH ×2 (08:06→21:09)
[2017-07-23] MEDS: Check Patch TRDERM SCH ×2 (08:07→21:10)
[2017-07-23] MEDS: Insulin Aspart 100 Units/ML 3 ML Pen SUBCUT SCH ×3 (08:08→18:09)
[2017-07-23] MEDS: fentaNYL 25 MCG/HR Transdermal Patch TOP SCH (08:10)
[2017-07-23] MEDS: IPRATROPIUM BROMIDE 0.06% NASBOTH SCH ×3 (08:11→21:11)
[2017-07-23] MEDS: Warfarin 2 MG Tab PO SCH (14:50)
[2017-07-23] MEDS: Magnesium Hydroxide 400 MG/5 ML Susp 30 ML Cup PO PRN (14:53)
[2017-07-23] MEDS: atorvaSTATin 10 MG Tab PO SCH (21:08)
[2017-07-23] MEDS: diphenhydrAMINE 25 MG Tab PO PRN (21:08)
[2017-07-24] MEDS: Hydrocortisone 2.5% Crm 30 GM Tube TOP PRN ×2 (05:44→08:04)
[2017-07-24] MEDS: Omeprazole 20 MG Cap.CR PO SCH (05:44)
[2017-07-24] MEDS: Polyethylene Glycol 3350 Powder 17 GM Packet PO SCH (08:04)
[2017-07-24] MEDS: Lidocaine 5% 700 MG Patch TOP SCH (08:04)
[2017-07-24] MEDS: Bisacodyl 10 MG Supp RECTAL SCH (08:05)
[2017-07-24] MEDS: Magnesium Hydroxide 400 MG/5 ML Susp 30 ML Cup PO PRN (08:05)
[2017-07-24] MEDS: IPRATROPIUM BROMIDE 0.06% NASBOTH SCH ×3 (08:05→20:45)
[2017-07-24] MEDS: Gabapentin 100 MG Cap PO SCH ×4 (08:07→20:44)
[2017-07-24] MEDS: Clopidogrel 75 MG Tab PO SCH (08:07)
[2017-07-24] MEDS: Sodium Chloride 1 GM Tab PO SCH ×2 (08:07→20:43)
[2017-07-24] MEDS: Midodrine 2.5 MG Tab PO SCH ×2 (08:07→20:44)
[2017-07-24] MEDS: DULoxetine 30 MG Cap PO SCH (08:07)
[2017-07-24] MEDS: Docusate Sodium 100 MG Cap PO PRN (08:07)
[2017-07-24] MEDS: Calcium Carbonate/Vitamin D3 1250 MG-200 Unit Tab PO SCH ×2 (08:07→20:43)
[2017-07-24] MEDS: Check Patch TRDERM SCH ×2 (08:08→20:45)
[2017-07-24] MEDS: oxyCODONE 5 MG Tab PO PRN ×3 (08:09→20:43)
[2017-07-24] MEDS: Acetaminophen/oxyCODONE 325-5 MG Tab PO PRN ×3 (08:10→20:43)
[2017-07-24] MEDS: Insulin Aspart 100 Units/ML 3 ML Pen SUBCUT SCH ×2 (08:30→19:34)
[2017-07-24] MEDS: Warfarin 2 MG Tab PO SCH (14:23)
[2017-07-24] MEDS: atorvaSTATin 10 MG Tab PO SCH (20:44)
[2017-07-25] MEDS: Omeprazole 20 MG Cap.CR PO SCH (06:20)
[2017-07-25] MEDS: Lidocaine 5% 700 MG Patch TOP SCH (09:17)
[2017-07-25] MEDS: Polyethylene Glycol 3350 Powder 17 GM Packet PO SCH (09:17)
[2017-07-25] MEDS: Midodrine 2.5 MG Tab PO SCH ×2 (09:18→20:19)
[2017-07-25] MEDS: Sodium Chloride 1 GM Tab PO SCH ×2 (09:18→20:18)
[2017-07-25] MEDS: oxyCODONE 5 MG Tab PO PRN (09:18)
[2017-07-25] MEDS: DULoxetine 30 MG Cap PO SCH (09:18)
[2017-07-25] MEDS: Acetaminophen/oxyCODONE 325-5 MG Tab PO PRN (09:19)
[2017-07-25] MEDS: Calcium Carbonate/Vitamin D3 1250 MG-200 Unit Tab PO SCH ×2 (09:20→20:20)
[2017-07-25] MEDS: Clopidogrel 75 MG Tab PO SCH (09:20)
[2017-07-25] MEDS: Gabapentin 100 MG Cap PO SCH ×4 (09:20→20:17)
[2017-07-25] MEDS: Insulin Aspart 100 Units/ML 3 ML Pen SUBCUT SCH ×2 (09:21→17:48)
[2017-07-25] MEDS: IPRATROPIUM BROMIDE 0.06% NASBOTH SCH ×3 (09:21→20:21)
[2017-07-25] MEDS: Bisacodyl 10 MG Supp RECTAL SCH (09:22)
[2017-07-25] MEDS: Check Patch TRDERM SCH ×2 (09:23→20:22)
[2017-07-25] MEDS: Menthol/Methyl Salicylate 85 GM Tube TOP PRN (10:49)
[2017-07-25] MEDS: Calcium Carbonate 500 MG Tab.Chew PO PRN (10:50)
[2017-07-25] MEDS: Warfarin 2 MG Tab PO SCH (13:05)
[2017-07-25] MEDS: Bisacodyl 10 MG Supp RECTAL PRN (17:58)
[2017-07-25] MEDS: atorvaSTATin 10 MG Tab PO SCH (20:18)
[2017-07-26] MEDS: Menthol/Methyl Salicylate 85 GM Tube TOP PRN (05:42)
[2017-07-26] MEDS: Omeprazole 20 MG Cap.CR PO SCH (05:43)
[2017-07-26] MEDS: Insulin Aspart 100 Units/ML 3 ML Pen SUBCUT SCH ×2 (08:22→17:32)
[2017-07-26] MEDS: Polyethylene Glycol 3350 Powder 17 GM Packet PO SCH (09:00)
[2017-07-26] MEDS: Gabapentin 100 MG Cap PO SCH ×4 (09:01→21:49)
[2017-07-26] MEDS: Midodrine 2.5 MG Tab PO SCH ×2 (09:01→21:48)
[2017-07-26] MEDS: Clopidogrel 75 MG Tab PO SCH (09:01)
[2017-07-26] MEDS: Calcium Carbonate/Vitamin D3 1250 MG-200 Unit Tab PO SCH ×2 (09:01→21:49)
[2017-07-26] MEDS: Acetaminophen/oxyCODONE 325-5 MG Tab PO PRN (09:01)
[2017-07-26] MEDS: Sodium Chloride 1 GM Tab PO SCH ×2 (09:01→21:49)
[2017-07-26] MEDS: DULoxetine 30 MG Cap PO SCH (09:02)
[2017-07-26] MEDS: oxyCODONE 5 MG Tab PO PRN (09:02)
[2017-07-26] MEDS: fentaNYL 25 MCG/HR Transdermal Patch TOP SCH (09:03)
[2017-07-26] MEDS: Lidocaine 5% 700 MG Patch TOP SCH (09:03)
[2017-07-26] MEDS: IPRATROPIUM BROMIDE 0.06% NASBOTH SCH ×3 (09:14→21:51)
[2017-07-26] MEDS: Check Patch TRDERM SCH ×2 (09:14→22:01)
[2017-07-26] MEDS: Bisacodyl 10 MG Supp RECTAL SCH (14:34)
[2017-07-26] MEDS: Warfarin 2 MG Tab PO SCH (14:34)
[2017-07-26] MEDS: Carboxymethylcellulose Sodium 1% Ophth Gel 0.4 ML UD EYEBOTH PRN (17:35)
[2017-07-26] MEDS: atorvaSTATin 10 MG Tab PO SCH (21:48)
[2017-07-27] MEDS: Omeprazole 20 MG Cap.CR PO SCH (05:48)
[2017-07-27] MEDS: Insulin Aspart 100 Units/ML 3 ML Pen SUBCUT SCH ×2 (08:16→17:01)
[2017-07-27] MEDS: Calcium Carbonate/Vitamin D3 1250 MG-200 Unit Tab PO SCH ×2 (08:37→21:19)
[2017-07-27] MEDS: Midodrine 2.5 MG Tab PO SCH ×2 (08:39→21:19)
[2017-07-27] MEDS: DULoxetine 30 MG Cap PO SCH (08:39)
[2017-07-27] MEDS: Gabapentin 100 MG Cap PO SCH ×4 (08:39→21:18)
[2017-07-27] MEDS: Clopidogrel 75 MG Tab PO SCH (08:39)
[2017-07-27] MEDS: Sodium Chloride 1 GM Tab PO SCH ×2 (08:41→21:19)
[2017-07-27] MEDS: Polyethylene Glycol 3350 Powder 17 GM Packet PO SCH (08:48)
[2017-07-27] MEDS: Lidocaine 5% 700 MG Patch TOP SCH (08:50)
[2017-07-27] MEDS: Check Patch TRDERM SCH ×2 (09:00→21:25)
[2017-07-27] MEDS: Bisacodyl 10 MG Supp RECTAL SCH (09:00)
[2017-07-27] MEDS: IPRATROPIUM BROMIDE 0.06% NASBOTH SCH ×3 (09:01→21:24)
[2017-07-27] MEDS: Warfarin 2 MG Tab PO SCH (13:43)
[2017-07-27] MEDS: atorvaSTATin 10 MG Tab PO SCH (21:18)
[2017-07-28] MEDS: Omeprazole 20 MG Cap.CR PO SCH (05:19)
[2017-07-28] MEDS: Menthol/Methyl Salicylate 85 GM Tube TOP PRN (05:22)
[2017-07-28] MEDS: Polyethylene Glycol 3350 Powder 17 GM Packet PO SCH (08:38)
[2017-07-28] MEDS: Insulin Aspart 100 Units/ML 3 ML Pen SUBCUT SCH ×2 (08:38→18:24)
[2017-07-28] MEDS: Gabapentin 100 MG Cap PO SCH ×4 (08:39→20:19)
[2017-07-28] MEDS: Midodrine 2.5 MG Tab PO SCH ×2 (08:39→20:18)
[2017-07-28] MEDS: Sodium Chloride 1 GM Tab PO SCH ×2 (08:39→20:19)
[2017-07-28] MEDS: Acetaminophen/oxyCODONE 325-5 MG Tab PO PRN ×3 (08:40→20:19)
[2017-07-28] MEDS: Clopidogrel 75 MG Tab PO SCH (08:40)
[2017-07-28] MEDS: oxyCODONE 5 MG Tab PO PRN ×3 (08:41→20:20)
[2017-07-28] MEDS: DULoxetine 30 MG Cap PO SCH (08:41)
[2017-07-28] MEDS: Calcium Carbonate/Vitamin D3 1250 MG-200 Unit Tab PO SCH ×2 (08:42→20:17)
[2017-07-28] MEDS: Check Patch TRDERM SCH ×2 (08:42→20:18)
[2017-07-28] MEDS: Bisacodyl 10 MG Supp RECTAL SCH (08:43)
[2017-07-28] MEDS: Hydrocortisone 2.5% Crm 30 GM Tube TOP PRN (08:44)
[2017-07-28] MEDS: Lidocaine 5% 700 MG Patch TOP SCH (10:02)
[2017-07-28] MEDS: IPRATROPIUM BROMIDE 0.06% NASBOTH SCH ×3 (10:03→20:22)
--- NOTE | 2017-07-28 12:40 | PCM.PN ---
- General Info Date of Service: 07/28/17 Admission Dx/Problem (Free Text): Debility, left hip pain, recent NSTEMI Subjective Update: Patient stated that he is doing better. He said his hip pain improved. He complained earlier this week that his right leg hurts. Today he says that it's much better and I see hot cream is helping. He was able to get out of bed to the bathroom and chair by himself today which made him happy. He also had bowel movement today. Patient denies fever, chills, nausea, vomiting, chest pain, abdominal pain, or symptoms, unilateral with this/numbness/tingling, any other symptoms or concerns. - Patient Data Vitals - Most Recent: Last Vital Signs Temp 36.8 C 07/28/17 08:01 Pulse 69 07/28/17 08:01 Resp 20 07/28/17 08:01 BP 104/47 L 07/28/17 08:01 Pulse Ox 94 L 07/28/17 08:01 Weight - Most Recent: 66.497 kg I&O - Last 24 Hours: Intake & Output 07/27/17 07/28/17 07/28/17 22:59 06:59 14:59 Intake Total 540 200 Output Total 400 425 Balance 140 -425 200 Lab Results Last 24 Hours: Laboratory Results - last 24 hr 07/27/17 07/28/17 07/28/17 Range/Units 16:40 06:20 07:31 PT 23.8 H (9.0-12.0) SEC INR 2.4 H (0.9-1.2) POC Glucose 95 81 L (83-110) mg/dl Med Orders - Current: Current Medications Alendronate Sodium (Fosamax) 70 mg PO Person@0600 [facility] Last Admin: 07/23/17 06:07 Dose: 70 mg Artificial Tears (Refresh Celluvisc) 1 each EYEBOTH Q2H PRN PRN Reason: Dry Eyes Last Admin: 07/26/17 17:35 Dose: 1 each Atorvastatin Calcium (Lipitor) 40 mg PO BEDTIME [facility] Last Admin: 07/27/17 21:18 Dose: 40 mg Bisacodyl (Dulcolax) 10 mg RECTAL DAILY PRN PRN Reason: Constipation Last Admin: 07/25/17 17:58 Dose: 10 mg Bisacodyl (Dulcolax) 10 mg RECTAL DAILY [facility] Last Admin: 07/28/17 08:43 Dose: 10 mg Calcium Carbonate (Calcium Carbonate/Vitamin D 1250 Mg-200 Unit) 1 tab PO BID [facility] Last Admin: 07/28/17 08:42 Dose: 1 tab Calcium Carbonate/Glycine (Tums) 500 mg PO Q4H PRN PRN Reason: Heartburn Last Admin: 07/25/17 10:50 Dose: 500 mg Clopidogrel Bisulfate (Plavix) 75 mg PO DAILY [facility] Last Admin: 07/28/17 08:40 Dose: 75 mg Diphenhydramine HCl (Benadryl) 25 mg PO BID PRN PRN Reason: Itching Last Admin: 07/23/17 21:08 Dose: 25 mg Docusate Sodium (Colace) 100 mg PO BID PRN PRN Reason: Constipation Last Admin: 07/24/17 08:07 Dose: 100 mg Duloxetine HCl (Cymbalta) 30 mg PO DAILY [facility] Last Admin: 07/28/17 08:41 Dose: 30 mg Fentanyl (Duragesic) 25 mcg TOP Q3D@0900 [facility] Last Admin: 07/26/17 09:03 Dose: 25 mcg Gabapentin (Neurontin) 100 mg PO TID [facility] Last Admin: 07/28/17 08:39 Dose: 100 mg Gabapentin (Neurontin) 100 mg PO BEDTIME [facility] Last Admin: 07/27/17 21:18 Dose: 100 mg Hydrocortisone (Hydrocortisone 2.5% Crm) 0 gm TOP BID PRN PRN Reason: Itching Last Admin: 07/28/17 08:44 Dose: 1 applic Insulin Aspart (Novolog) 0 unit SUBCUT BIDMEALS [facility] PRN Reason: Protocol Last Admin: 07/28/17 08:38 Dose: Not Given Lidocaine (Lidoderm 5%) 700 mg TOP Q24H [facility] Last Admin: 07/28/17 10:02 Dose: 700 mg Magnesium Hydroxide (Milk Of Magnesia) 30 ml PO BID PRN PRN Reason: Constipation Last Admin: 07/24/17 08:05 Dose: 30 ml Methyl Salicylate (Icy Hot Cream) 0 gm TOP Q8H PRN PRN Reason: Pain Last Admin: 07/28/17 05:22 Dose: 1 applic Midodrine (Midodrine) 5 mg PO BID [facility] Last Admin: 07/28/17 08:39 Dose: 5 mg Miscellaneous Information (Check Patch) 1 ea TRDERM BID [facility] Last Admin: 07/28/17 08:42 Dose: Not Given Miscellaneous Information (Remove Patch) 1 ea TRDERM BEDTIME [facility] Last Admin: 07/27/17 21:26 Dose: 1 ea Morphine Sulfate (Morphine) 1 mg IVPUSH Q4H PRN PRN Reason: Pain Last Admin: 07/17/17 13:46 Dose: 1 mg Omeprazole (Omeprazole) 20 mg PO ACBRK [facility] Last Admin: 07/28/17 05:19 Dose: 20 mg Oxycodone HCl (Oxycodone) 5 mg PO Q6H PRN PRN Reason: PAIN Last Admin: 07/28/17 08:41 Dose: 5 mg Oxycodone/Acetaminophen (Percocet 325-5 Mg) 1 tab PO Q6H PRN PRN Reason: Pain Last Admin: 07/28/17 08:40 Dose: 1 tab Ipratropium [place] 0.06% Nasal [place] Ptom 0 each NASBOTH TID [facility] Last Admin: 07/28/17 10:03 Dose: 1 each Polyethylene Glycol (Miralax) 17 gm PO DAILY [facility] Last Admin: 07/28/17 08:38 Dose: 17 gm Senna/Docusate Sodium (Senna Plus) 1 tab PO BID [facility] Last Admin: 07/28/17 08:42 Dose: 1 tab Sodium Chloride (Saline Flush) 10 ml FLUSH ASDIRECTED PRN PRN Reason: Keep Vein Open Last Admin: 07/19/17 22:01 Dose: 10 ml Sodium Chloride (Sodium Chloride) 1 gm PO BID [facility] Last Admin: 07/28/17 08:39 Dose: 1 gm Warfarin Sodium (Pharmacy To Dose - Warfarin) 1 dose PO ASDIRECTED [facility] Warfarin Sodium (Coumadin) 6 mg PO DAILY@1400 [facility] Zinc Acetate/Diphenhydramine (Banophen Anti-Itch 2% Crm) 0 gm TOP DAILY PRN PRN Reason: Itching Discontinued Medications Aspirin (Halfprin) 81 mg PO DAILY [facility] Last Admin: 07/13/17 10:41 Dose: Not Given Atorvastatin Calcium (Lipitor) 40 mg PO BEDTIME [facility] Last Admin: 07/18/17 20:40 Dose: 40 mg Bisacodyl (Dulcolax) 10 mg RECTAL BEDTIME [facility] Last Admin: 07/18/17 20:43 Dose: Not Given Clopidogrel Bisulfate (Plavix) 300 mg PO ONETIME ONE Stop: 07/13/17 10:40 Last Admin: 07/13/17 11:03 Dose: 300 mg Fentanyl (Duragesic) 25 mcg TOP Q3D [facility] Last Admin: 07/13/17 09:30 Dose: 25 mcg Fentanyl (Duragesic) 25 mcg TOP Q3D [facility] Furosemide (Lasix) 20 mg PO BIDDIURETIC [facility] Last Admin: 07/13/17 10:42 Dose: Not Given Furosemide (Lasix) 20 mg PO DAILY [facility] Last Admin: 07/19/17 09:07 Dose: 20 mg Gabapentin (Neurontin) 100 mg PO BID [facility] Last Admin: 07/17/17 10:42 Dose: 100 mg Hydrocortisone (Hydrocortisone 1% Crm) 0 gm TOP BID [facility] Last Admin: 07/18/17 14:44 Dose: Not Given Insulin Aspart (Novolog) 0 unit SUBCUT QID [facility] PRN Reason: Protocol Last Admin: 07/23/17 18:09 Dose: 1 unit Lidocaine HCl (Xylocaine 2% Jelly) 0 ml TOP BID [facility] Magnesium Hydroxide (Milk Of Magnesia) 30 ml PO ONETIME ONE Stop: 07/11/17 20:36 Last Admin: 07/11/17 22:29 Dose: 30 ml Metoprolol Succinate (Toprol Xl) 12.5 mg PO DAILY [facility] Last Admin: 07/18/17 10:42 Dose: Not Given Non-Formulary Medication (Fish Oil/[place]-3 Fatty Acids [Fish Oil 1,000 Mg]) 1, 000 mg PO BID [facility] Senna/Docusate Sodium (Senna Plus) 1 tab PO BID [facility] Warfarin Sodium (Coumadin) 7.5 mg PO NOW ONE Stop: 07/10/17 20:46 Last Admin: 07/10/17 20:47 Dose: 7.5 mg Warfarin Sodium (Pharmacy To Dose - Warfarin) 1 dose PO ASDIRECTED [facility] Warfarin Sodium (Coumadin) 7.5 mg PO ONETIME ONE Stop: 07/11/17 14:01 Last Admin: 07/11/17 14:02 Dose: 7.5 mg Warfarin Sodium (Coumadin) 2 mg PO ONETIME ONE Stop: 07/12/17 14:01 Last Admin: 07/12/17 13:54 Dose: 2 mg Warfarin Sodium (Coumadin) 5 mg PO ONETIME ONE Stop: 07/13/17 14:01 Last Admin: 07/13/17 13:32 Dose: 5 mg Warfarin Sodium (Coumadin) 5 mg PO ONETIME ONE Stop: 07/14/17 14:01 Last Admin: 07/14/17 13:40 Dose: 5 mg Warfarin Sodium (Coumadin) 5 mg PO ONETIME ONE Stop: 07/15/17 14:01 Last Admin: 07/15/17 14:16 Dose: 5 mg Warfarin Sodium 5 mg/ Warfarin (Sodium 2.5 mg) 7.5 mg PO DAILY@1400 [facility] Stop: 07/16/17 14:01 Last Admin: 07/16/17 13:15 Dose: 7.5 mg Warfarin Sodium (Coumadin) 7.5 mg PO ONETIME ONE Stop: 07/17/17 14:01 Last Admin: 07/17/17 13:45 Dose: 7.5 mg Warfarin Sodium (Coumadin) 6 mg PO DAILY@1400 [facility] Stop: 07/20/17 14:01 Last Admin: 07/20/17 13:54 Dose: 6 mg Warfarin Sodium (Coumadin) 6 mg PO DAILY@1400 [facility] Stop: 07/27/17 14:01 Last Admin: 07/27/17 13:43 Dose: 6 mg - Exam General: Alert, Oriented, Cooperative, No Acute Distress, Other (He is eating his lunch and well-dressed and smiling). No: Mild Distress, Moderate Distress, Severe Distress, Sedated, Lethargic HEENT: Pupils Equal, Pupils Reactive, EOMI, Mucous Membr. Moist/[place] Neck: Supple, Trachea Midline, No JVD Lungs: Clear to Auscultation, Normal Respiratory Effort. No: Decreased Breath Sounds, Crackles, Rales, Rhonchi, Rub, Stridor, Wheezing Cardiovascular: Irregular Rhythm. No: Tachycardia GI/Abdominal Exam: Normal Bowel Sounds, Soft, Non-Tender, No Organomegaly, No Distention, No Abnormal Bruit (Male) Exam: Deferred Back Exam: No: CVA Tenderness (L), CVA Tenderness (R) Extremities: Normal Inspection, Normal Range of Motion, Non-Tender, No Pedal Edema, Normal Capillary Refill Skin: Warm, Dry, Intact Neurological: No New Focal Deficit Psy/Mental Status: Alert, Normal Affect, Normal Mood - Problem List Review Problem List Initiated/Reviewed/Updated: Yes - My Orders Last 24 Hours: My Active Orders 07/28/17 14:00 Warfarin [Coumadin] 6 mg PO DAILY@1400 08/04/17 06:00 INR,PT,PROTHROMBIN TIME [COAG] Routine - Plan Plan:: Assessment Debility with generalized weakness. Recent Non-STEMI. No intervention was done due to patient's comorbidities. Medical management Coronary artery disease Chronic congestive heart failure Atrial fibrillation, rate is controlled Chronic want to correlation with warfarin Neuropathy Hyperlipidemia Right leg pain, improved Plan Continue physical therapy and the patient was therapy for his debility and generalized weakness Continue medical management for his coronary artery disease with Plavix, atorvastatin. His Toprol XL 12.5 mg was held due to low blood pressure. Blood pressure is better. We will restarted and watch blood pressure closely Continue fentanyl patch and oxycodone for chronic pain. Icy hot for leg pain Continue warfarin and restart metoprolol for atrial fibrillation
[2017-07-28] MEDS: Warfarin 2 MG Tab PO SCH (13:14)
[2017-07-28] MEDS: Metoprolol Succinate 25 MG Tab.ER PO SCH (14:40)
[2017-07-28] MEDS: Calcium Carbonate 500 MG Tab.Chew PO PRN (14:48)
[2017-07-28] MEDS: atorvaSTATin 10 MG Tab PO SCH (20:18)
[2017-07-29] MEDS: Acetaminophen/oxyCODONE 325-5 MG Tab PO PRN (02:36)
[2017-07-29] MEDS: oxyCODONE 5 MG Tab PO PRN (02:37)
[2017-07-29] MEDS: Menthol/Methyl Salicylate 85 GM Tube TOP PRN (03:58)
[2017-07-29] MEDS: Omeprazole 20 MG Cap.CR PO SCH (06:01)
[2017-07-29] MEDS: Insulin Aspart 100 Units/ML 3 ML Pen SUBCUT SCH ×2 (07:43→17:12)
[2017-07-29] MEDS: Midodrine 2.5 MG Tab PO SCH ×2 (08:56→21:07)
[2017-07-29] MEDS: Bisacodyl 10 MG Supp RECTAL SCH (08:57)
[2017-07-29] MEDS: Docusate Sodium 100 MG Cap PO PRN (08:57)
[2017-07-29] MEDS: Clopidogrel 75 MG Tab PO SCH (08:57)
[2017-07-29] MEDS: Gabapentin 100 MG Cap PO SCH ×4 (08:57→21:06)
[2017-07-29] MEDS: Sodium Chloride 1 GM Tab PO SCH ×2 (08:57→21:07)
[2017-07-29] MEDS: Calcium Carbonate/Vitamin D3 1250 MG-200 Unit Tab PO SCH ×2 (08:57→21:06)
[2017-07-29] MEDS: Metoprolol Succinate 25 MG Tab.ER PO SCH (08:57)
[2017-07-29] MEDS: fentaNYL 25 MCG/HR Transdermal Patch TOP SCH (08:57)
[2017-07-29] MEDS: DULoxetine 30 MG Cap PO SCH (08:57)
[2017-07-29] MEDS: Polyethylene Glycol 3350 Powder 17 GM Packet PO SCH (08:58)
[2017-07-29] MEDS: Lidocaine 5% 700 MG Patch TOP SCH (08:58)
[2017-07-29] MEDS: Check Patch TRDERM SCH ×2 (09:06→21:32)
[2017-07-29] MEDS: IPRATROPIUM BROMIDE 0.06% NASBOTH SCH ×3 (09:08→21:12)
[2017-07-29] MEDS ORDERED: Warfarin 2 MG Tab PO SCH (14:00)
[2017-07-29] MEDS: Warfarin 2 MG Tab PO SCH (14:16)
[2017-07-29] MEDS: atorvaSTATin 10 MG Tab PO SCH (21:07)
[2017-07-30] MEDS: Omeprazole 20 MG Cap.CR PO SCH (05:55)
[2017-07-30] MEDS: Insulin Aspart 100 Units/ML 3 ML Pen SUBCUT SCH ×2 (07:41→17:03)
[2017-07-30] MEDS: Polyethylene Glycol 3350 Powder 17 GM Packet PO SCH (08:55)
[2017-07-30] MEDS: Midodrine 2.5 MG Tab PO SCH ×2 (08:55→21:09)
[2017-07-30] MEDS: Calcium Carbonate/Vitamin D3 1250 MG-200 Unit Tab PO SCH ×2 (08:56→21:09)
[2017-07-30] MEDS: DULoxetine 30 MG Cap PO SCH (08:56)
[2017-07-30] MEDS: Clopidogrel 75 MG Tab PO SCH (08:56)
[2017-07-30] MEDS: Sodium Chloride 1 GM Tab PO SCH ×2 (08:56→21:09)
[2017-07-30] MEDS: Metoprolol Succinate 25 MG Tab.ER PO SCH (08:56)
[2017-07-30] MEDS: Gabapentin 100 MG Cap PO SCH ×4 (08:56→21:10)
[2017-07-30] MEDS: Check Patch TRDERM SCH ×2 (08:59→21:19)
[2017-07-30] MEDS: Lidocaine 5% 700 MG Patch TOP SCH (08:59)
[2017-07-30] MEDS: Bisacodyl 10 MG Supp RECTAL SCH (08:59)
[2017-07-30] MEDS: IPRATROPIUM BROMIDE 0.06% NASBOTH SCH ×3 (09:00→21:17)
[2017-07-30] MEDS: Carboxymethylcellulose Sodium 1% Ophth Gel 0.4 ML UD EYEBOTH PRN (10:50)
[2017-07-30] MEDS: Warfarin 2 MG Tab PO SCH (14:24)
[2017-07-30] MEDS: atorvaSTATin 10 MG Tab PO SCH (21:09)
[2017-07-31] MEDS: Omeprazole 20 MG Cap.CR PO SCH (05:11)
[2017-07-31] MEDS: Insulin Aspart 100 Units/ML 3 ML Pen SUBCUT SCH ×2 (08:18→18:32)
[2017-07-31] MEDS: Calcium Carbonate/Vitamin D3 1250 MG-200 Unit Tab PO SCH ×2 (08:55→21:37)
[2017-07-31] MEDS: Sodium Chloride 1 GM Tab PO SCH ×2 (08:55→21:37)
[2017-07-31] MEDS: Midodrine 2.5 MG Tab PO SCH ×2 (08:55→21:36)
[2017-07-31] MEDS: DULoxetine 30 MG Cap PO SCH (08:56)
[2017-07-31] MEDS: Gabapentin 100 MG Cap PO SCH ×4 (08:56→21:36)
[2017-07-31] MEDS: Clopidogrel 75 MG Tab PO SCH (08:56)
[2017-07-31] MEDS: Bisacodyl 10 MG Supp RECTAL SCH (08:57)
[2017-07-31] MEDS: Check Patch TRDERM SCH ×2 (08:57→21:44)
[2017-07-31] MEDS: Polyethylene Glycol 3350 Powder 17 GM Packet PO SCH (08:57)
[2017-07-31] MEDS: Lidocaine 5% 700 MG Patch TOP SCH (08:58)
[2017-07-31] MEDS: Metoprolol Succinate 25 MG Tab.ER PO SCH (08:59)
[2017-07-31] MEDS: IPRATROPIUM BROMIDE 0.06% NASBOTH SCH ×3 (09:00→21:39)
[2017-07-31] MEDS: Warfarin 2 MG Tab PO SCH (15:05)
[2017-07-31] MEDS: Carboxymethylcellulose Sodium 1% Ophth Gel 0.4 ML UD EYEBOTH PRN (19:48)
[2017-07-31] MEDS: atorvaSTATin 10 MG Tab PO SCH (21:36)
[2017-07-31] MEDS: Calcium Carbonate 500 MG Tab.Chew PO PRN (23:46)
[2017-08-01] MEDS: Omeprazole 20 MG Cap.CR PO SCH (05:51)
[2017-08-01 08:09] VITALS: BP 103/48
[2017-08-01] MEDS: fentaNYL 25 MCG/HR Transdermal Patch TOP SCH (09:30)
[2017-08-01] MEDS: Lidocaine 5% 700 MG Patch TOP SCH (09:31)
[2017-08-01] MEDS: Midodrine 2.5 MG Tab PO SCH (09:32)
[2017-08-01] MEDS: Metoprolol Succinate 25 MG Tab.ER PO SCH (09:33)
[2017-08-01] MEDS: Calcium Carbonate/Vitamin D3 1250 MG-200 Unit Tab PO SCH (09:34)
[2017-08-01] MEDS: Sodium Chloride 1 GM Tab PO SCH (09:35)
[2017-08-01] MEDS: Gabapentin 100 MG Cap PO SCH (09:35)
[2017-08-01] MEDS: Clopidogrel 75 MG Tab PO SCH (09:35)
[2017-08-01] MEDS: DULoxetine 30 MG Cap PO SCH (09:35)
[2017-08-01] MEDS: Bisacodyl 10 MG Supp RECTAL SCH (09:36)
[2017-08-01] MEDS: Polyethylene Glycol 3350 Powder 17 GM Packet PO SCH (09:36)
[2017-08-01] MEDS: Check Patch TRDERM SCH (09:38)
[2017-08-01] MEDS: Insulin Aspart 100 Units/ML 3 ML Pen SUBCUT SCH (09:38)
[2017-08-01] MEDS: IPRATROPIUM BROMIDE 0.06% NASBOTH SCH (09:42)
--- NOTE | 2017-08-01 12:22 | PCM.DCSUM1 ---
Discharge Summary - Hospital Course Free Text/Narrative:: 87 y/o admitted for Debility with generalized weakness. Recent Non-STEMI. No intervention was done due to patient's comorbidities. Medical management Coronary artery disease Chronic congestive heart failure Atrial fibrillation, rate is controlled Chronic want to correlation with warfarin Neuropathy Hyperlipidemia Right leg pain, improved His symptoms have improved and is being discharged home. - Discharge Data Discharge Date: 08/01/17 Discharge Disposition: Home, Self-Care 01 Condition: Good - Discharge Diagnosis/Problem(s) (1) NSTEMI (non-ST elevated myocardial infarction) SNOMED Code(s): 039708037 ICD Code: I21.4 - NON-ST ELEVATION (NSTEMI) MYOCARDIAL INFARCTION Status: Acute Priority: High Current Visit: Yes - Patient Summary/Data Consults: Consultations 07/11/17 11:18 Consult to Physical Therapy [PT Evaluation and Treatment] [CONS] Routine OT Evaluation and Treatment [CONS] Routine - Discharge Plan Prescriptions/Med Rec: Clopidogrel [Plavix] 75 mg PO DAILY #30 tablet Hydrocortisone [Hydrocortisone 2.5% Crm] 0 gm TOP BID PRN #1 tube PRN Reason: Itching Metoprolol Succinate [Toprol XL] 12.5 mg PO DAILY 30 Days tab.er Sodium Chloride 1 gm PO BID 60 Days tablet Home Medications: Home Meds Omeprazole 20 mg PO DAILY 03/05/14 [History] fentaNYL [Fentanyl] 25 mcg TOP Q3D 07/16/16 [History] Alendronate Sodium [Fosamax] 1 tab PO .SUN 03/28/17 [History] Calcium Carbonate/Vitamin D3 [Calcium 600 + Vit D Tablet] 1 tab PO BID 03/28/17 [History] DULoxetine HCl [Cymbalta] 1 tab PO DAILY 03/28/17 [History] Docusate Sodium [Colace] 1 cap PO BID PRN 03/28/17 [History] Fish Oil/[place]-3 Fatty Acids [Fish Oil 1,000 MG] 1,000 mg PO BID 03/28/17 [ History] Gabapentin [Neurontin] 100 mg PO TID 03/28/17 [History] Ipratropium [place] 2 sprays NASBOTH TID 03/28/17 [History] Sennosides/Docusate Sodium [Senna S Tablet] 1 tab PO BID 05/18/17 [History] oxyCODONE HCl/Acetaminophen [Percocet 10-325 mg Tablet] 1 tab PO Q6H PRN [History] Aspirin [Halfprin] 81 mg PO DAILY 07/10/17 [History] Furosemide [Lasix] 20 mg PO BID 07/10/17 [History] Midodrine 5 mg PO BID 07/10/17 [History] atorvaSTATin [Lipitor] 40 mg PO BEDTIME 07/10/17 [History] diphenhydrAMINE/Zinc Acetate [Benadryl Itch Stopping Crm] 28.3 gm TP DAILY PRN 07/10/17 [History] Clopidogrel [Plavix] 75 mg PO DAILY #30 tablet 08/01/17 [Rx] Hydrocortisone [Hydrocortisone 2.5% Crm] 0 gm TOP BID PRN #1 tube 08/01/17 [Rx] Metoprolol Succinate [Toprol XL] 12.5 mg PO DAILY 30 Days tab.er 08/01/17 [Rx] Sodium Chloride 1 gm PO BID 60 Days tablet 08/01/17 [Rx] Patient Handouts: Metoprolol extended-release tablets, Hydrocortisone skin cream, ointment, lotion, or solution, Clopidogrel tablets - Discharge Summary/Plan Comment DC Time >30 min.: Yes - General Info Functional Status: Reports: Pain Controlled - Review of Systems General: Reports: No Symptoms HEENT: Reports: No Symptoms Pulmonary: Reports: No Symptoms Cardiovascular: Reports: No Symptoms Gastrointestinal: Reports: No Symptoms Genitourinary: Reports: No Symptoms Musculoskeletal: Reports: No Symptoms Skin: Reports: No Symptoms Neurological: Reports: No Symptoms Psychiatric: Reports: No Symptoms - Patient Data Vitals - Most Recent: Last Vital Signs Temp 97.6 F 08/01/17 08:08 Pulse 63 08/01/17 09:33 Resp 20 08/01/17 08:08 BP 103/48 L 08/01/17 09:33 Pulse Ox 97 08/01/17 08:08 Weight - Most Recent: 146 lb 9.6 oz I&O - Last 24 hours: Intake & Output 07/31/17 08/01/17 08/01/17 22:59 06:59 14:59 Intake Total 550 340 Output Total 700 Balance -150 340 Lab Results - Last 24 hrs: Laboratory Results - last 24 hr 07/31/17 08/01/17 Range/Units 16:56 07:15 POC Glucose 185 H 84 (83-110) mg/dl Med Orders - Current: Current Medications Alendronate Sodium (Fosamax) 70 mg PO Person@0600 [facility] Last Admin: 07/30/17 06:01 Dose: 70 mg Artificial Tears (Refresh Celluvisc) 1 each EYEBOTH Q2H PRN PRN Reason: Dry Eyes Last Admin: 07/31/17 19:48 Dose: 1 each Atorvastatin Calcium (Lipitor) 40 mg PO BEDTIME [facility] Last Admin: 07/31/17 21:36 Dose: 40 mg Bisacodyl (Dulcolax) 10 mg RECTAL DAILY PRN PRN Reason: Constipation Last Admin: 07/25/17 17:58 Dose: 10 mg Bisacodyl (Dulcolax) 10 mg RECTAL DAILY [facility] Last Admin: 08/01/17 09:36 Dose: 10 mg Calcium Carbonate (Calcium Carbonate/Vitamin D 1250 Mg-200 Unit) 1 tab PO BID [facility] Last Admin: 08/01/17 09:34 Dose: 1 tab Calcium Carbonate/Glycine (Tums) 500 mg PO Q4H PRN PRN Reason: Heartburn Last Admin: 07/31/17 23:46 Dose: 500 mg Clopidogrel Bisulfate (Plavix) 75 mg PO DAILY [facility] Last Admin: 08/01/17 09:35 Dose: 75 mg Diphenhydramine HCl (Benadryl) 25 mg PO BID PRN PRN Reason: Itching Last Admin: 07/23/17 21:08 Dose: 25 mg Docusate Sodium (Colace) 100 mg PO BID PRN PRN Reason: Constipation Last Admin: 07/29/17 08:57 Dose: 100 mg Duloxetine HCl (Cymbalta) 30 mg PO DAILY [facility] Last Admin: 08/01/17 09:35 Dose: 30 mg Fentanyl (Duragesic) 25 mcg TOP Q3D@0900 [facility] Last Admin: 08/01/17 09:30 Dose: 25 mcg Gabapentin (Neurontin) 100 mg PO TID [facility] Last Admin: 08/01/17 09:35 Dose: 100 mg Gabapentin (Neurontin) 100 mg PO BEDTIME [facility] Last Admin: 07/31/17 21:36 Dose: 100 mg Hydrocortisone (Hydrocortisone 2.5% Crm) 0 gm TOP BID PRN PRN Reason: Itching Last Admin: 07/28/17 08:44 Dose: 1 applic Insulin Aspart (Novolog) 0 unit SUBCUT BIDMEALS [facility] PRN Reason: Protocol Last Admin: 08/01/17 09:38 Dose: Not Given Lidocaine (Lidoderm 5%) 700 mg TOP Q24H [facility] Last Admin: 08/01/17 09:31 Dose: 700 mg Magnesium Hydroxide (Milk Of Magnesia) 30 ml PO BID PRN PRN Reason: Constipation Last Admin: 07/24/17 08:05 Dose: 30 ml Methyl Salicylate (Icy Hot Cream) 0 gm TOP Q8H PRN PRN Reason: Pain Last Admin: 07/29/17 03:58 Dose: 1 applic Metoprolol Succinate (Toprol Xl) 12.5 mg PO DAILY [facility] Last Admin: 08/01/17 09:33 Dose: 12.5 mg Midodrine (Midodrine) 5 mg PO BID [facility] Last Admin: 08/01/17 09:32 Dose: 5 mg Miscellaneous Information (Check Patch) 1 ea TRDERM BID [facility] Last Admin: 08/01/17 09:38 Dose: Not Given Miscellaneous Information (Remove Patch) 1 ea TRDERM BEDTIME [facility] Last Admin: 07/31/17 21:45 Dose: Not Given Morphine Sulfate (Morphine) 1 mg IVPUSH Q4H PRN PRN Reason: Pain Last Admin: 07/17/17 13:46 Dose: 1 mg Omeprazole (Omeprazole) 20 mg PO ACBRK [facility] Last Admin: 08/01/17 05:51 Dose: 20 mg Oxycodone HCl (Oxycodone) 5 mg PO Q6H PRN PRN Reason: PAIN Last Admin: 07/29/17 02:37 Dose: 5 mg Oxycodone/Acetaminophen (Percocet 325-5 Mg) 1 tab PO Q6H PRN PRN Reason: Pain Last Admin: 07/29/17 02:36 Dose: 1 tab Ipratropium [place] 0.06% Nasal [place] Ptom 0 each NASBOTH TID [facility] Last Admin: 08/01/17 09:42 Dose: 1 each Polyethylene Glycol (Miralax) 17 gm PO DAILY [facility] Last Admin: 08/01/17 09:36 Dose: 17 gm Senna/Docusate Sodium (Senna Plus) 1 tab PO BID [facility] Last Admin: 08/01/17 09:34 Dose: 1 tab Sodium Chloride (Saline Flush) 10 ml FLUSH ASDIRECTED PRN PRN Reason: Keep Vein Open Last Admin: 07/19/17 22:01 Dose: 10 ml Sodium Chloride (Sodium Chloride) 1 gm PO BID [facility] Last Admin: 08/01/17 09:35 Dose: 1 gm Warfarin Sodium (Pharmacy To Dose - Warfarin) 1 dose PO ASDIRECTED [facility] Warfarin Sodium (Coumadin) 6 mg PO DAILY@1400 [facility] Last Admin: 07/31/17 15:05 Dose: 6 mg Zinc Acetate/Diphenhydramine (Banophen Anti-Itch 2% Crm) 0 gm TOP DAILY PRN PRN Reason: Itching Discontinued Medications Aspirin (Halfprin) 81 mg PO DAILY [facility] Last Admin: 07/13/17 10:41 Dose: Not Given Atorvastatin Calcium (Lipitor) 40 mg PO BEDTIME [facility] Last Admin: 07/18/17 20:40 Dose: 40 mg Bisacodyl (Dulcolax) 10 mg RECTAL BEDTIME [facility] Last Admin: 07/18/17 20:43 Dose: Not Given Clopidogrel Bisulfate (Plavix) 300 mg PO ONETIME ONE Stop: 07/13/17 10:40 Last Admin: 07/13/17 11:03 Dose: 300 mg Fentanyl (Duragesic) 25 mcg TOP Q3D [facility] Last Admin: 07/13/17 09:30 Dose: 25 mcg Fentanyl (Duragesic) 25 mcg TOP Q3D [facility] Furosemide (Lasix) 20 mg PO BIDDIURETIC [facility] Last Admin: 07/13/17 10:42 Dose: Not Given Furosemide (Lasix) 20 mg PO DAILY [facility] Last Admin: 07/19/17 09:07 Dose: 20 mg Gabapentin (Neurontin) 100 mg PO BID [facility] Last Admin: 07/17/17 10:42 Dose: 100 mg Hydrocortisone (Hydrocortisone 1% Crm) 0 gm TOP BID [facility] Last Admin: 07/18/17 14:44 Dose: Not Given Insulin Aspart (Novolog) 0 unit SUBCUT QID [facility] PRN Reason: Protocol Last Admin: 07/23/17 18:09 Dose: 1 unit Lidocaine HCl (Xylocaine 2% Jelly) 0 ml TOP BID [facility] Magnesium Hydroxide (Milk Of Magnesia) 30 ml PO ONETIME ONE Stop: 07/11/17 20:36 Last Admin: 07/11/17 22:29 Dose: 30 ml Metoprolol Succinate (Toprol Xl) 12.5 mg PO DAILY [facility] Last Admin: 07/18/17 10:42 Dose: Not Given Non-Formulary Medication (Fish Oil/[place]-3 Fatty Acids [Fish Oil 1,000 Mg]) 1, 000 mg PO BID [facility] Senna/Docusate Sodium (Senna Plus) 1 tab PO BID [facility] Warfarin Sodium (Coumadin) 7.5 mg PO NOW ONE Stop: 07/10/17 20:46 Last Admin: 07/10/17 20:47 Dose: 7.5 mg Warfarin Sodium (Pharmacy To Dose - Warfarin) 1 dose PO ASDIRECTED [facility] Warfarin Sodium (Coumadin) 7.5 mg PO ONETIME ONE Stop: 07/11/17 14:01 Last Admin: 07/11/17 14:02 Dose: 7.5 mg Warfarin Sodium (Coumadin) 2 mg PO ONETIME ONE Stop: 07/12/17 14:01 Last Admin: 07/12/17 13:54 Dose: 2 mg Warfarin Sodium (Coumadin) 5 mg PO ONETIME ONE Stop: 07/13/17 14:01 Last Admin: 07/13/17 13:32 Dose: 5 mg Warfarin Sodium (Coumadin) 5 mg PO ONETIME ONE Stop: 07/14/17 14:01 Last Admin: 07/14/17 13:40 Dose: 5 mg Warfarin Sodium (Coumadin) 5 mg PO ONETIME ONE Stop: 07/15/17 14:01 Last Admin: 07/15/17 14:16 Dose: 5 mg Warfarin Sodium 5 mg/ Warfarin (Sodium 2.5 mg) 7.5 mg PO DAILY@1400 [facility] Stop: 07/16/17 14:01 Last Admin: 07/16/17 13:15 Dose: 7.5 mg Warfarin Sodium (Coumadin) 7.5 mg PO ONETIME ONE Stop: 07/17/17 14:01 Last Admin: 07/17/17 13:45 Dose: 7.5 mg Warfarin Sodium (Coumadin) 6 mg PO DAILY@1400 [facility] Stop: 07/20/17 14:01 Last Admin: 07/20/17 13:54 Dose: 6 mg Warfarin Sodium (Coumadin) 6 mg PO DAILY@1400 [facility] Stop: 07/27/17 14:01 Last Admin: 07/27/17 13:43 Dose: 6 mg Warfarin Sodium (Coumadin) 6 mg PO DAILY@1400 [facility] Stop: 07/29/17 14:01 Last Admin: 07/29/17 14:12 Dose: Not Given - Exam General: Reports: Alert, Oriented HEENT: Reports: Pupils Equal, Pupils Reactive, EOMI, Mucous Membr. Moist/[place] Neck: Reports: Supple Lungs: Reports: Clear to Auscultation, Normal Respiratory Effort Cardiovascular: Reports: Regular Rate, Regular Rhythm GI/Abdominal Exam: Normal Bowel Sounds, Soft, Non-Tender, No Organomegaly, No Distention, No Abnormal Bruit, No Mass, Pelvis Stable (Male) Exam: No Hernia, Normal Inspection, Normal Prostate, Circumcised Rectal (Males) Exam: Normal Exam, Normal Rectal Tone, Prostate Normal Back Exam: Reports: Normal Inspection, Full Range of Motion Extremities: Normal Inspection, Normal Range of Motion, Non-Tender, No Pedal Edema, Normal Capillary Refill Skin: Reports: Warm, Dry, Intact Wound/Incisions: Reports: Healing Well Neurological: Reports: No New Focal Deficit Psy/Mental Status: Reports: Alert, Normal Affect, Normal Mood *Q Meaningful Use (DIS) - VTE *Q VTE Criteria *Q: - Stroke *Q Stroke Criteria *Q: Statin Contraindications Stroke *Q: Med/TX Not Indicated/Need - AMI *Q AMI Criteria *Q:
== END 2017-08-01 14:10 | disposition home or self-care (01) | DRG 947 ==
LOC: UNDOADMIN 13:51 → DL.MS 13:51
PROVIDERS: ADMIT Internal Medicine; ATTEND Internal Medicine
DX: R53.1 Weakness (principal); I21.4 Non-ST elevation (NSTEMI) myocardial infarction; I25.810 Atherosclerosis of coronary artery bypass graft(s) without angina pectoris; I50.9 Heart failure, unspecified; I11.0 Hypertensive heart disease with heart failure; I48.91 Unspecified atrial fibrillation; E78.5 Hyperlipidemia, unspecified; M79.604 Pain in right leg; G62.9 Polyneuropathy, unspecified; E11.9 Type 2 diabetes mellitus without complications; K21.9 Gastro-esophageal reflux disease without esophagitis; I35.0 Nonrheumatic aortic (valve) stenosis; Z79.01 Long term (current) use of anticoagulants; Z79.02 Long term (current) use of antithrombotics/antiplatelets; Z79.4 Long term (current) use of insulin; Z79.899 Other long term (current) drug therapy
CPT/HCPCS: 36415; 71046; 80048; 81001; 82962; 83930; 83935; 85014; 85018; 85025; 85027; 85610; 87086; 97110-GO; 97110-GP; 97116-GP; 97140-GP; 97162-GP; 97165-GO; 97530-GO; 97530-GP; 97535-GO; A9270-GY; J1815-GY; J2270; J7050

== ENCOUNTER 2017-10-04 12:21 | Emergency (ER) | payer MEDICARE, BC ==
--- NOTE | 2017-10-04 13:06 | CR ---
Clinical history: 87-year-old male in the emergency department with a near syncopal episode. Interpretation: AP supine (rotated) film this kyphotic patient is abnormal. *Patchy new pneumonic like consolidation both lung bases when compared to upright PA film of 2017. Clinical aspiration? Cardiac silhouette remains within normal limits and no cephalization of flow, new signs of alveolar e janna or dependent pleural fluid accumulation (pacemaker lead intact). No lung mass or hilar lymphadenopathy. CONCLUSION: Bibasilar bronchiectasis or pneumonitis (see above).
--- NOTE | 2017-10-04 13:06 | EDM.PDOC ---
ED HPI GENERAL MEDICAL PROBLEM - General Chief Complaint: General Stated Complaint: BY AMBULANCE Time Seen by Provider: 10/04/17 12:50 Source of Information: Reports: Patient, EMS History Limitations: Reports: No Limitations - History of Present Illness INITIAL COMMENTS - FREE TEXT/NARRATIVE: This 87 yo male patient was brought to the ED by [facility] due to a near syncope episode. The patient reports he just returned to the [facility] from the eye doctor. The patient reports he had his eyes dilated this morning and was not able to see when he got back from the eye doctor and "melted". The patient reports that he did not fall to the ground due to other people holding him up. The patient reports that he feels normal at the time of the evaluation. Onset: Today Duration: Resolved Prior to Arrival Location: Reports: Generalized Quality: Reports: Other Severity: Moderate Improves with: Reports: None Worsens with: Reports: None Associated Symptoms: Reports: No Other Symptoms - Related Data Allergies Allergy/AdvReac Type Severity Reaction Status Date / Time aspirin Allergy Bleeding Verified 07/10/17 14:22 Home Meds: Home Meds Omeprazole 20 mg PO DAILY 03/05/14 [History] Alendronate Sodium [Fosamax] 1 tab PO .SUN 03/28/17 [History] Calcium Carbonate/Vitamin D3 [Calcium 600 + Vit D Tablet] 1 tab PO BID 03/28/17 [History] DULoxetine HCl [Cymbalta] 1 tab PO DAILY 03/28/17 [History] Docusate Sodium [Colace] 1 cap PO BID PRN 03/28/17 [History] Fish Oil/[place]-3 Fatty Acids [Fish Oil 1,000 MG] 1,000 mg PO BID 03/28/17 [ History] Gabapentin [Neurontin] 100 mg PO TID 03/28/17 [History] Ipratropium [place] 2 sprays NASBOTH TID 03/28/17 [History] Sennosides/Docusate Sodium [Senna S Tablet] 1 tab PO BID 05/18/17 [History] Aspirin [Halfprin] 81 mg PO DAILY 07/10/17 [History] Furosemide [Lasix] 20 mg PO BID 07/10/17 [History] diphenhydrAMINE/Zinc Acetate [Benadryl Itch Stopping Crm] 28.3 gm TP DAILY PRN 07/10/17 [History] Clopidogrel [Plavix] 75 mg PO DAILY #30 tablet 08/01/17 [Rx] Hydrocortisone [Hydrocortisone 2.5% Crm] 0 gm TOP BID PRN #1 tube 08/01/17 [Rx] Menthol/Methyl Salicylate [Icy Hot] 0 gm TOP Q8H PRN tube 08/01/17 [Rx] Metoprolol Succinate [Toprol XL] 12.5 mg PO DAILY 30 Days tab.er 08/01/17 [Rx] Midodrine 5 mg PO BID #30 tablet 08/01/17 [Rx] Sodium Chloride 1 gm PO BID 60 Days tablet 08/01/17 [Rx] Warfarin [Coumadin] 2.5 mg PO DAILY 15 Days #15 tablet 08/01/17 [Rx] atorvaSTATin [Lipitor] 40 mg PO BEDTIME #30 tablet 08/01/17 [Rx] fentaNYL [Fentanyl] 25 mcg TOP Q3D #10 patch.[id number] 08/01/17 [Rx] Past Medical History - Past Health History Medical/Surgical History: Denies Medical/Surgical History (Probable coronary artery disease) HEENT History: Reports: Cataract, Hard of Hearing, Impaired Vision Cardiovascular History: Reports: Afib, Bypass, CAD, Heart Failure, High Cholesterol, Hypertension, [place], Pacemaker, SOB on Exertion Other Cardiovascular History: NSTEMI; bradycardia Respiratory History: Reports: SOB Other Respiratory History: shortness of breath Gastrointestinal History: Reports: GERD, Other (See Below) Other Gastrointestinal History: left inguinal hernia Genitourinary History: Reports: Prostate Disorder Musculoskeletal History: Reports: Other (See Below) Other Musculoskeletal History: wedge compression fx lumbar & thoracic spine Neurological History: Reports: None Psychiatric History: Reports: None Endocrine/Metabolic History: Reports: Diabetes, Type II Hematologic History: Reports: Anemia Immunologic History: Reports: None Oncologic (Cancer) History: Reports: None Dermatologic History: Reports: None - Infectious Disease History Infectious Disease History: Reports: None - Past Surgical History Head Surgeries/Procedures: Reports: None HEENT Surgical History: Reports: Cataract Surgery Cardiovascular Surgical History: Reports: Coronary Artery Bypass, Pacer Respiratory Surgical History: Reports: None GI Surgical History: Reports: Appendectomy, Cholecystectomy Male Surgical History: Reports: None Endocrine Surgical History: Reports: None Neurological Surgical History: Reports: None Musculoskeletal Surgical History: Reports: None Oncologic Surgical History: Reports: None Dermatological Surgical History: Reports: Other (See Below) Social & Family History - Family History Family Medical History: Unobtainable - Tobacco Use Smoking Status *Q: Never Smoker Second Hand Smoke Exposure: No - Caffeine Use Caffeine Use: Reports: Coffee, Soda, Tea Caffeine Use Comment: unable to obtain - Alcohol Use Days Per Week of Alcohol Use: 0 - Recreational Drug Use Recreational Drug Use: No - Living Situation & Occupation Occupation: Retired ED ROS GENERAL - Review of Systems Review Of Systems: ROS reveals no pertinent complaints other than HPI. ED EXAM, GENERAL - Physical Exam Exam: See Below Exam Limited By: No Limitations General Appearance: Alert, WD/WN, Mild Distress, Thin Eye Exam: Bilateral Eye: EOMI, Normal Fundi, PERRL Ears: Normal External Exam, Normal Canal, Hearing Grossly Normal, Normal TMs Throat/Mouth: Normal Inspection, Normal Lips, Normal Teeth, Normal Gums, Normal Oropharynx, Normal Voice, No Airway Compromise Head: Atraumatic, Normocephalic Neck: Normal Inspection, Supple, Non-Tender, Full Range of Motion Respiratory/Chest: No Respiratory Distress, Lungs Clear, Normal Breath Sounds, No Accessory Muscle Use, Chest Non-Tender Cardiovascular: Normal Peripheral Pulses, Regular Rate, Rhythm, No Edema, No Gallop, No JVD, No Murmur, No Rub GI/Abdominal: Normal Bowel Sounds, Soft, Non-Tender, No Organomegaly, No Distention, No Abnormal Bruit, No Mass (Male) Exam: Deferred Rectal (Males) Exam: Deferred Back Exam: Normal Inspection, Full Range of Motion, NT Extremities: Normal Inspection, Normal Range of Motion, Non-Tender, Normal Capillary Refill, No Pedal Edema Neurological: Alert, Oriented, CN II-XII Intact, Normal Cognition, Normal Gait, Normal Reflexes, No Motor/Sensory Deficits Psychiatric: Normal Affect, Normal Mood Skin Exam: Warm, Dry, Intact, Normal Color, No Rash Lymphatic: No Adenopathy Course - Vital Signs Last Recorded V/S: Last Vital Signs Temp 36.9 C 10/04/17 12:35 Pulse 73 10/04/17 12:35 Resp 16 10/04/17 12:35 BP 79/45 L 10/04/17 12:35 Pulse Ox 93 L 10/04/17 12:35 - Orders/Labs/Meds Orders: Active Orders 24 hr Category Date Time Status EKG Documentation Completion [RC] URGENT Care 10/04/17 12:32 Active UA W/MICROSCOPIC [URIN] Stat Lab 10/04/17 13:22 Ordered Heparin Sodium/0.45% NaCl [Heparin 25,000 Units in 1/2 Med 10/04/17 14:30 Ordered NS 500 ML] 25,000 units in 500 ml IV TITRATE Medication Orders Heparin Sodium/Sodium Chloride (Heparin 25,000 Units In 1/2 Ns 500 Ml) 25,000 units in 500 mls @ 14.696 mls/hr IV TITRATE LISA Labs: Laboratory Tests 10/04/17 10/04/17 10/04/17 Range/Units 12:55 12:55 13:22 WBC 8.8 (5.0-10.0) 10^3/uL RBC 2.60 L (4.6-6.2) 10^6/uL Hgb 8.8 L (14.0-18.0) g/dL Hct 26.3 L (40.0-54.0) % MCV 101.2 H (80-100) fL MCH 33.8 (27.0-34.0) pg MCHC 33.5 (33.0-35.0) g/dL Plt Count 238 (150-450) 10^3/uL Neut % (Auto) 78.4 H (42.2-75.2) % Lymph % (Auto) 13.2 L (20.5-50.1) % [place] % (Auto) 8.3 H (2-8) % Eos % (Auto) 0.0 L (1.0-3.0) % Baso % (Auto) 0.1 (0.0-1.0) % Sodium 125 L (135-145) mmol/L Potassium 4.8 (3.6-5.0) mmol/L Chloride 91 L (101-111) mmol/L Carbon Dioxide 24.0 (21.0-31.0) mmol/L Anion Gap 14.8 BUN 53 H D (7-18) mg/dL Creatinine 1.7 H (0.6-1.3) mg/dL Est Cr Clr Drug Dosing 27.02 mL/min Estimated GFR (MDRD) 38 BUN/Creatinine Ratio 31.17 Glucose 80 (74-105) mg/dL Calcium 8.1 L (8.4-10.2) mg/dl Total Bilirubin 1.8 H (0.2-1.0) mg/dL AST 51 H (10-42) IU/L ALT 24 (10-60) IU/L Alkaline Phosphatase 86 (42-121) IU/L Troponin I 0.39 H* (0.00-0.02) ng/ml Total Protein 7.4 (6.7-8.2) g/dl Albumin 2.7 L (3.2-5.5) g/dl Globulin 4.7 Albumin/Globulin Ratio 0.57 Urine Color Yellow (YELLOW) Urine Appearance Clear (CLEAR) Urine pH 5.0 (5.0-9.0) Ur Specific [place] 1.010 (1.005-1.030) Urine Protein Trace H (NEGATIVE) Urine Glucose (UA) Negative (NEGATIVE) Urine Ketones Negative (NEGATIVE) Urine Occult Blood Negative (NEGATIVE) Urine Nitrite Negative (NEGATIVE) Urine Bilirubin Negative (NEGATIVE) Urine Urobilinogen 1.0 (0.2-1.0) mg/dL Ur Leukocyte Esterase Negative (NEGATIVE) Urine RBC 0-5 /HPF Urine WBC 0-5 (0-5/HPF) /HPF Ur Epithelial Cells Rare /HPF Urine Bacteria Few (0-FEW/HPF) /HPF Hyaline Casts Many H /LPF Urine Mucus Many H /LPF Meds: Medications Generic Name Dose Route Start Last Admin Trade Name Freq PRN Reason Stop Dose Admin Heparin Sodium/Sodium Chloride 25,000 units in 500 mls @ 14.696 mls/hr 14:30 Heparin 25,000 Units In 1/2 Ns 500 Ml IV TITRATE LISA 12 UNITS/KG/HR Discontinued Medications Generic Name Dose Route Start Last Admin Trade Name Freq PRN Reason Stop Dose Admin Heparin Sodium (Porcine) 4,000 units 10/04/17 14:20 Heparin Sodium IVPUSH 10/04/17 14:21 .BOLUS ONE Departure - Departure Time of Disposition: 14:30 Disposition: DC/Tfer to Acute Hospital 02 Condition: Serious Clinical Impression: NSTEMI (non-ST elevated myocardial infarction) - Discharge Information Forms: Interfacility Transfer EMTALA Care Plan Goals: Discussed the history examination, lab results and EKG with Dr. Shanks ( Hospitalist with [facility] in [place]) Dr. Shanks accepted the patient for continued evaluation and management. The patient will be transported by [facility]. - My Orders Last 24 Hours: My Active Orders 10/04/17 12:32 EKG Documentation Completion [RC] URGENT 10/04/17 13:22 UA W/MICROSCOPIC [URIN] Stat 10/04/17 14:30 Heparin Sodium/0.45% NaCl [Heparin 25,000 Units in 1/2 NS 500 ML] 25,000 units in 500 ml IV TITRATE - Assessment/Plan Last 24 Hours: My Active Orders 10/04/17 12:32 EKG Documentation Completion [RC] URGENT 10/04/17 13:22 UA W/MICROSCOPIC [URIN] Stat 10/04/17 14:30 Heparin Sodium/0.45% NaCl [Heparin 25,000 Units in 1/2 NS 500 ML] 25,000 units in 500 ml IV TITRATE
[2017-10-04] MEDS ORDERED: Heparin Sodium 5,000 Units/ML Vial IVPUSH ONE (14:20)
[2017-10-04] MEDS ORDERED: Heparin Sodium/0.45% NaCl 25,000 UNITS/500 ML BAG IV SCH (14:30)
[2017-10-04 15:01] VITALS: BP 86/39
== END 2017-10-04 15:25 ==
LOC: DL.ED 12:21
DX: I21.4 Non-ST elevation (NSTEMI) myocardial infarction (principal); I25.2 Old myocardial infarction; I11.0 Hypertensive heart disease with heart failure; I50.9 Heart failure, unspecified; E11.9 Type 2 diabetes mellitus without complications; Z79.899 Other long term (current) drug therapy; Z79.82 Long term (current) use of aspirin
CPT/HCPCS: 36415; 71045; 80053; 81001; 84484; 85025; 93005; 93010; 96365; 96376; 99285; J1644

== ENCOUNTER 2017-10-13 16:57 | Emergency (ER) | payer MEDICARE, BC ==
[2017-10-13] MEDS ORDERED: Acetaminophen/HYDROcodone 325-5 MG Tab PO ONE (17:08)
[2017-10-13] MEDS ORDERED: Bacitracin Oint 1 GM U/D Packet TOP ONE (17:09)
[2017-10-13] MEDS ORDERED: Diphtheria,Pertussis(Acell),Tetanus Vaccine 0.5 ML SDV IM ONE (17:09)
[2017-10-13 17:39] VITALS: BP 99/57
[2017-10-13] MEDS ORDERED: HYDROmorphone 0.5 MG/0.5 ML Syringe IVPUSH ONE (18:33)
--- NOTE | 2017-10-13 18:43 | EDM.PDOC ---
Scribed by Desi Moncada 10/13/17 [id number] for Sagar Raya MD ED HPI GENERAL MEDICAL PROBLEM - General Chief Complaint: Lower Extremity Injury/Pain Stated Complaint: fall-[place] [facility] Time Seen by Provider: 10/13/17 17:00 Source of Information: Reports: Patient, RN, RN Notes Reviewed History Limitations: Reports: No Limitations - History of Present Illness INITIAL COMMENTS - FREE TEXT/NARRATIVE: Patient presents to ER from assisted living by a van with report that patient fell out of his chair on his right side at 1505 hours. The fall was witnessed. He did not loose consciousness. Initially he was able to walk with his walker and then developed right hip. He complains of pain to the right hip, pelvis, groin and right knee and has multiple skin tears to the right elbo and, knuckles. 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 Onset: Today Location: Reports: Lower Extremity, Right Quality: Reports: Ache Severity: Severe Improves with: Reports: None Worsens with: Reports: None Associated Symptoms: Reports: No Other Symptoms Right Hip Pain Score (Numeric/FACES): 10 - Related Data Allergies Allergy/AdvReac Type Severity Reaction Status Date / Time aspirin Allergy Bleeding Verified 07/10/17 14:22 Home Meds: Home Meds Alendronate Sodium [Fosamax] 1 tab PO .SUN 03/28/17 [History] Docusate Sodium [Colace] 1 cap PO BID PRN 03/28/17 [History] Fish Oil/[place]-3 Fatty Acids [Fish Oil 1,000 MG] 1,000 mg PO BID 03/28/17 [ History] Ipratropium [place] 2 sprays NASBOTH TID 03/28/17 [History] Sennosides/Docusate Sodium [Senna S Tablet] 1 tab PO BID 05/18/17 [History] Aspirin [Halfprin] 81 mg PO DAILY 07/10/17 [History] Furosemide [Lasix] 20 mg PO BID 07/10/17 [History] Clopidogrel [Plavix] 75 mg PO DAILY #30 tablet 08/01/17 [Rx] Hydrocortisone [Hydrocortisone 2.5% Crm] 0 gm TOP BID PRN #1 tube 08/01/17 [Rx] Menthol/Methyl Salicylate [Icy Hot] 0 gm TOP Q8H PRN tube 08/01/17 [Rx] Metoprolol Succinate [Toprol XL] 12.5 mg PO DAILY 30 Days tab.er 08/01/17 [Rx] Midodrine 5 mg PO BID #30 tablet 08/01/17 [Rx] atorvaSTATin [Lipitor] 40 mg PO BEDTIME #30 tablet 08/01/17 [Rx] Acetaminophen [Mapap] 1,000 mg PO TID 10/13/17 [History] Hydrocodone/Acetaminophen [Hydrocodon-Acetaminophen 5-325] 1 tab PO Q6H PRN 09/27 [History] Levofloxacin [Levaquin] 750 mg PO Q48H 10/13/17 [History] Pantoprazole Sodium [Protonix] 40 mg PO DAILY 10/13/17 [History] Polyethylene Glycol 3350 [MiraLAX] 17 gm PO DAILY 10/13/17 [History] Warfarin [Coumadin] 5 mg PO DAILY 10/13/17 [History] Past Medical History - Past Health History Medical/Surgical History: Denies Medical/Surgical History (Probable coronary artery disease) HEENT History: Reports: Cataract, Hard of Hearing, Impaired Vision Cardiovascular History: Reports: Afib, Bypass, CAD, Heart Failure, High Cholesterol, Hypertension, [place], Pacemaker, SOB on Exertion Other Cardiovascular History: NSTEMI; bradycardia Respiratory History: Reports: SOB Other Respiratory History: shortness of breath Gastrointestinal History: Reports: GERD, Other (See Below) Other Gastrointestinal History: left inguinal hernia Genitourinary History: Reports: Prostate Disorder Musculoskeletal History: Reports: Other (See Below) Other Musculoskeletal History: wedge compression fx lumbar & thoracic spine Neurological History: Reports: None Psychiatric History: Reports: None Endocrine/Metabolic History: Reports: Diabetes, Type II Hematologic History: Reports: Anemia Immunologic History: Reports: None Oncologic (Cancer) History: Reports: None Dermatologic History: Reports: None - Infectious Disease History Infectious Disease History: Reports: None - Past Surgical History Head Surgeries/Procedures: Reports: None HEENT Surgical History: Reports: Cataract Surgery Cardiovascular Surgical History: Reports: Coronary Artery Bypass, Pacer Respiratory Surgical History: Reports: None GI Surgical History: Reports: Appendectomy, Cholecystectomy Male Surgical History: Reports: None Endocrine Surgical History: Reports: None Neurological Surgical History: Reports: None Musculoskeletal Surgical History: Reports: None Oncologic Surgical History: Reports: None Dermatological Surgical History: Reports: Other (See Below) Social & Family History - Family History Family Medical History: Unobtainable - Tobacco Use Smoking Status *Q: Never Smoker Second Hand Smoke Exposure: No - Caffeine Use Caffeine Use: Reports: Coffee, Soda, Tea Caffeine Use Comment: unable to obtain - Alcohol Use Days Per Week of Alcohol Use: 0 - Recreational Drug Use Recreational Drug Use: No - Living Situation & Occupation Occupation: Retired Review of Systems - Review of Systems Review Of Systems: ROS reveals no pertinent complaints other than HPI. ED EXAM, GENERAL - Physical Exam Exam: See Below Exam Limited By: No Limitations General Appearance: Alert, Thin, Other (frail elderly appearing) Eye Exam: Bilateral Eye: Normal Inspection Ears: Hearing Grossly Normal Nose: Normal Inspection, Normal Mucosa, No Blood Throat/Mouth: Normal Voice, No Airway Compromise Head: Atraumatic, Normocephalic Neck: Normal Inspection, Supple, Non-Tender, Full Range of Motion Respiratory/Chest: No Respiratory Distress, Lungs Clear, No Accessory Muscle Use , Decreased Breath Sounds Cardiovascular: Irregularly Irregular GI/Abdominal: Normal Bowel Sounds, Soft, Non-Tender, No Distention, Pelvis Stable (Male) Exam: Deferred Rectal (Males) Exam: Deferred Back Exam: Decreased Range of Motion, Other (chronic appearing nonhealing thoracic pressure ulcer unstageable). No: CVA Tenderness (L), CVA Tenderness (R ) Extremities: Pedal Edema (trace), Leg Pain (right knee tenderness with decreased range of motion due to pain, no visible swelling or deformity. ), Other (tender right hip, groin and inguinal bony pelvis to palpation decreased range of motion right hip. ) Neurological: Alert, Oriented (to person and place), CN II-XII Intact, No Motor/ Sensory Deficits, Other (generalized weakness due to deconditioning) Skin Exam: Wound/Incision (superficial skin tears to right elbow and knuckles. ) Course - Vital Signs Last Recorded V/S: Last Vital Signs Temp 36.5 C 10/13/17 17:37 Pulse 79 10/13/17 17:37 Resp 16 10/13/17 17:37 BP 99/57 L 10/13/17 17:37 Pulse Ox 90 L 10/13/17 17:37 - Orders/Labs/Meds Orders: Active Orders 24 hr Category Date Time Status Vaccines to be Administered [RC] PER UNIT ROUTINE Care 10/13/17 17:09 Active Knee 3V Rt [CR] Stat Exams 10/13/17 17:07 Ordered Pelvis wo Cont [CT] Stat Exams 10/13/17 17:04 Taken Steri Strips Application [OM.PC] Routine Oth 10/13/17 17:09 Ordered Labs: Laboratory Tests 10/13/17 10/13/17 Range/Units 17:37 17:37 WBC 10.0 (5.0-10.0) 10^3/uL RBC 2.90 L (4.6-6.2) 10^6/uL Hgb 9.9 L (14.0-18.0) g/dL Hct 30.0 L (40.0-54.0) % MCV 103.4 H (80-100) fL MCH 34.1 H (27.0-34.0) pg MCHC 33.0 (33.0-35.0) g/dL Plt Count 235 (150-450) 10^3/uL Neut % (Auto) 75.3 H (42.2-75.2) % Lymph % (Auto) 13.7 L (20.5-50.1) % [place] % (Auto) 10.4 H (2-8) % Eos % (Auto) 0.4 L (1.0-3.0) % Baso % (Auto) 0.2 (0.0-1.0) % PT 22.7 H (9.0-12.0) SEC INR 2.3 H (0.9-1.2) Meds: Medications Discontinued Medications Generic Name Dose Route Start Last Admin Trade Name [place] PRN Reason Stop Dose Admin Hydrocodone Bitart/Acetaminophen 1 tab 10/13/17 17:08 10/13/17 17:49 [place] 325-5 Mg PO 10/13/17 17:09 1 tab ONETIME ONE Administration Bacitracin 1 dose 10/13/17 17:09 10/13/17 17:49 Bacitracin Oint 1 Gm TOP 10/13/17 17:10 1 dose ONETIME ONE Administration Diphtheria/Tetanus/Acell Pertussis 0.5 ml 10/13/17 17:09 10/13/17 17:47 Adacel IM 10/13/17 17:10 0.5 ml .ONCE ONE Administration Hydromorphone HCl 0.5 mg 10/13/17 18:33 Dilaudid IVPUSH 10/13/17 18:34 ONETIME ONE - Radiology Interpretation Free Text/Narrative:: CT abdomen and pelvis: Femoral neck fracture on the right. See rad report. Right knee x-ray: Departure - Departure Time of Disposition: 18:33 Disposition: DC/Tfer to Acute Hospital 02 Condition: Serious Clinical Impression: Femoral neck fracture Qualifiers: Encounter type: initial encounter Fracture type: closed Laterality: right Qualified Code(s): S72.001A - Fracture of unspecified part of neck of right femur, initial encounter for closed fracture Skin tear of elbow without complication Qualifiers: Encounter type: initial encounter Laterality: right Qualified Code(s): S51.011A - Laceration without foreign body of right elbow, initial encounter Skin tear of hand without complication Qualifiers: Encounter type: initial encounter Laterality: right Qualified Code(s): S61.411A - Laceration without foreign body of right hand, initial encounter Contusion of right knee Qualifiers: Encounter type: initial encounter Qualified Code(s): S80.01XA - Contusion of right knee, initial encounter Fall Qualifiers: Encounter type: initial encounter Qualified Code(s): W19.XXXA - Unspecified fall, initial encounter - Discharge Information Forms: ED Department Discharge, Interfacility Transfer EMTALA - My Orders Last 24 Hours: My Active Orders 10/13/17 17:04 Pelvis wo Cont [CT] Stat 10/13/17 17:07 Knee 3V Rt [CR] Stat 10/13/17 17:09 Vaccines to be Administered [RC] PER UNIT ROUTINE Steri Strips Application [OM.PC] Routine - Assessment/Plan Last 24 Hours: My Active Orders 10/13/17 17:04 Pelvis wo Cont [CT] Stat 10/13/17 17:07 Knee 3V Rt [CR] Stat 10/13/17 17:09 Vaccines to be Administered [RC] PER UNIT ROUTINE Steri Strips Application [OM.PC] Routine I have read and agree with the documentation that has been completed regarding this visit. By signing this record, I attest that the documentation was completed in my physical presence and is an accurate record of the encounter.
== END 2017-10-13 19:24 ==
LOC: DL.ED 16:57
DX: S72.001A Fracture of unspecified part of neck of right femur, initial encounter for closed fracture (principal); S51.011A Laceration without foreign body of right elbow, initial encounter; S61.411A Laceration without foreign body of right hand, initial encounter; S80.01XA Contusion of right knee, initial encounter; E78.00 Pure hypercholesterolemia, unspecified; I11.0 Hypertensive heart disease with heart failure; I50.9 Heart failure, unspecified; E11.9 Type 2 diabetes mellitus without complications; Z88.6 Allergy status to analgesic agent; Z79.899 Other long term (current) drug therapy; Z79.01 Long term (current) use of anticoagulants; W19.XXXA Unspecified fall, initial encounter
CPT/HCPCS: 36415; 72192; 85025; 85610; 90471; 90715; 96374; 99285; A9270; J1170

== ENCOUNTER 2017-10-24 13:23 | Emergency (ER) | payer MEDICARE, BC ==
--- NOTE | 2017-10-24 13:32 | EDM.PDOC ---
ED HPI GENERAL MEDICAL PROBLEM - General Chief Complaint: General Stated Complaint: IN BY AMBULANCE Time Seen by Provider: 10/24/17 13:23 Source of Information: Reports: Patient, EMS, Half-Way Records, RN History Limitations: Reports: No Limitations - History of Present Illness INITIAL COMMENTS - FREE TEXT/NARRATIVE: This 87 yo male patient was brought to the ED by [facility] due to possible aspiration. According to the intermediate, the patient was eating when he started to cough. The patient reports that he can not breath and it feels like something is "stuck" in his throat. The patient does have a cough when attempting to take deep breaths. The intermediate reports that they recently received orders for the patient to receive crushed medications and thickened liquids, but they have not started that yet as they are "waiting for clarification on the orders." The patient recently returned from [facility] in [place]. The patient was transferred to [facility] on 10/10/17 due to a right femoral head fracture. The patient reports he continues to have pain in his hips. The patient reports that he was eating lunch at about 1300 when some food got stuck in his throat. The patient reports he has been coughing, but has not been able to get the food from his throat. Onset: Today Onset Date: 10/24/17 Onset Time: 13:00 Duration: Constant Location: Reports: Neck, Chest Quality: Reports: Other Severity: Moderate Improves with: Reports: None Worsens with: Reports: None Associated Symptoms: Reports: Cough, Shortness of Breath - Related Data Allergies Allergy/AdvReac Type Severity Reaction Status Date / Time aspirin Allergy Bleeding Verified 10/24/17 13:42 Home Meds: Home Meds Alendronate Sodium [Fosamax] 1 tab PO .FRI 03/28/17 [History] Docusate Sodium [Colace] 1 cap PO BID PRN 03/28/17 [History] Fish Oil/[place]-3 Fatty Acids [Fish Oil 1,000 MG] 1,000 mg PO BID 03/28/17 [ History] Ipratropium [place] 2 sprays NASBOTH TID 03/28/17 [History] Sennosides/Docusate Sodium [Senna-S Tablet] 1 tab PO BID 05/18/17 [History] Aspirin [Halfprin] 81 mg PO DAILY 07/10/17 [History] Furosemide [Lasix] 20 mg PO BID 07/10/17 [History] Clopidogrel [Plavix] 75 mg PO DAILY #30 tablet 08/01/17 [Rx] Hydrocortisone [Hydrocortisone 2.5% Crm] 0 gm TOP BID PRN #1 tube 08/01/17 [Rx] Menthol/Methyl Salicylate [Icy Hot] 0 gm TOP Q8H PRN tube 08/01/17 [Rx] Metoprolol Succinate [Toprol XL] 12.5 mg PO DAILY 30 Days tab.er 08/01/17 [Rx] Midodrine 5 mg PO BID #30 tablet 08/01/17 [Rx] atorvaSTATin [Lipitor] 40 mg PO BEDTIME #30 tablet 08/01/17 [Rx] Acetaminophen [Mapap] 1,000 mg PO TID 10/13/17 [History] Hydrocodone/Acetaminophen [Hydrocodon-Acetaminophen 5-325] 1 tab PO Q6H PRN 09/27 [History] Levofloxacin [Levaquin] 750 mg PO Q48H 10/13/17 [History] Pantoprazole Sodium [Protonix] 40 mg PO DAILY 10/13/17 [History] Polyethylene Glycol 3350 [MiraLAX] 17 gm PO DAILY 10/13/17 [History] Warfarin [Coumadin] 5 mg PO DAILY 10/13/17 [History] Calcium Carbonate/Vitamin D3 [Liquid Calcium 600-Vit D3 Sfgl] 1 cap PO DAILY [History] DULoxetine HCl [Duloxetine HCl] 30 mg PO DAILY 10/24/17 [History] Gabapentin [Neurontin] 100 mg PO TID 10/24/17 [History] Past Medical History - Past Health History Medical/Surgical History: Denies Medical/Surgical History (Probable coronary artery disease) HEENT History: Reports: Cataract, Hard of Hearing, Impaired Vision Cardiovascular History: Reports: Afib, Bypass, CAD, Heart Failure, High Cholesterol, Hypertension, [place], Pacemaker, SOB on Exertion Other Cardiovascular History: NSTEMI; bradycardia Respiratory History: Reports: SOB Other Respiratory History: shortness of breath Gastrointestinal History: Reports: GERD, Other (See Below) Other Gastrointestinal History: left inguinal hernia Genitourinary History: Reports: Prostate Disorder Musculoskeletal History: Reports: Other (See Below) Other Musculoskeletal History: wedge compression fx lumbar & thoracic spine Neurological History: Reports: None Psychiatric History: Reports: None Endocrine/Metabolic History: Reports: Diabetes, Type II Hematologic History: Reports: Anemia Immunologic History: Reports: None Oncologic (Cancer) History: Reports: None Dermatologic History: Reports: None - Infectious Disease History Infectious Disease History: Reports: None - Past Surgical History Head Surgeries/Procedures: Reports: None HEENT Surgical History: Reports: Cataract Surgery Cardiovascular Surgical History: Reports: Coronary Artery Bypass, Pacer Respiratory Surgical History: Reports: None GI Surgical History: Reports: Appendectomy, Cholecystectomy Male Surgical History: Reports: None Endocrine Surgical History: Reports: None Neurological Surgical History: Reports: None Musculoskeletal Surgical History: Reports: None Oncologic Surgical History: Reports: None Dermatological Surgical History: Reports: Other (See Below) Social & Family History - Family History Family Medical History: Unobtainable - Tobacco Use Smoking Status *Q: Never Smoker Second Hand Smoke Exposure: No - Caffeine Use Caffeine Use: Reports: Coffee, Soda, Tea Caffeine Use Comment: unable to obtain - Recreational Drug Use Recreational Drug Use: No - Living Situation & Occupation Occupation: Retired ED ROS GENERAL - Review of Systems Review Of Systems: ROS reveals no pertinent complaints other than HPI. ED EXAM, GENERAL - Physical Exam Exam: See Below Exam Limited By: No Limitations General Appearance: Alert, WD/WN, Mild Distress, Thin Eye Exam: Bilateral Eye: EOMI, Normal Inspection, PERRL Ears: Normal External Exam, Normal Canal, Hearing Grossly Normal, Normal TMs Nose: Normal Inspection, Normal Mucosa, No Blood Throat/Mouth: Normal Lips, Normal Teeth, Normal Gums, Normal Oropharynx, Normal Voice, No Airway Compromise, Other (dry mucosa) Head: Atraumatic, Normocephalic Neck: Normal Inspection, Supple, Non-Tender, Full Range of Motion Respiratory/Chest: No Respiratory Distress, Lungs Clear, Normal Breath Sounds, No Accessory Muscle Use, Chest Non-Tender Cardiovascular: Normal Peripheral Pulses, Regular Rate, Rhythm, No Edema, No Gallop, No JVD, No Murmur, No Rub GI/Abdominal: Normal Bowel Sounds, Soft, Non-Tender, No Organomegaly, No Distention, No Abnormal Bruit, No Mass Rectal (Males) Exam: Deferred Back Exam: Normal Inspection, Decreased Range of Motion (due to bilateral hip pain) Extremities: Other (pain in bilateral hips) Neurological: Alert, Oriented, CN II-XII Intact, Normal Cognition, Normal Gait, Normal Reflexes, No Motor/Sensory Deficits Psychiatric: Normal Affect, Normal Mood Skin Exam: Warm, Dry, Intact, Normal Color, No Rash Lymphatic: No Adenopathy Course - Vital Signs Last Recorded V/S: Last Vital Signs Temp 36.5 C 10/24/17 13:26 Pulse 57 L 10/24/17 13:26 Resp 18 10/24/17 13:26 BP 97/57 L 10/24/17 13:26 Pulse Ox 97 10/24/17 13:26 - Orders/Labs/Meds Orders: Active Orders 24 hr Category Date Time Status Chest 2V [CR] Urgent Exams 10/24/17 13:23 Taken Labs: Laboratory Tests 10/24/17 10/24/17 Range/Units 13:36 13:36 WBC 11.1 H (5.0-10.0) 10^3/uL RBC 2.74 L (4.6-6.2) 10^6/uL Hgb 9.6 L (14.0-18.0) g/dL Hct 28.4 L (40.0-54.0) % MCV 103.6 H (80-100) fL MCH 35.0 H (27.0-34.0) pg MCHC 33.8 (33.0-35.0) g/dL Plt Count 275 (150-450) 10^3/uL Neut % (Auto) 80.8 H (42.2-75.2) % Lymph % (Auto) 11.7 L (20.5-50.1) % Chambers % (Auto) 7.4 (2-8) % Eos % (Auto) 0.0 L (1.0-3.0) % Baso % (Auto) 0.1 (0.0-1.0) % Sodium 133 L (135-145) mmol/L Potassium 4.2 (3.6-5.0) mmol/L Chloride 97 L (101-111) mmol/L Carbon Dioxide 26.0 (21.0-31.0) mmol/L Anion Gap 14.2 BUN 41 H (7-18) mg/dL Creatinine 1.3 (0.6-1.3) mg/dL Est Cr Clr Drug Dosing TNP Estimated GFR (MDRD) 52 BUN/Creatinine Ratio 31.53 Glucose 129 H (74-105) mg/dL Calcium 8.4 (8.4-10.2) mg/dl Total Bilirubin 1.9 H (0.2-1.0) mg/dL AST 45 H (10-42) IU/L ALT 22 (10-60) IU/L Alkaline Phosphatase 157 H (42-121) IU/L Total Protein 7.5 (6.7-8.2) g/dl Albumin 2.3 L (3.2-5.5) g/dl Globulin 5.2 Albumin/Globulin Ratio 0.44 Departure - Departure Time of Disposition: 14:57 Disposition: DC/Tfer to Skilled Nursing [facility] 64 Condition: Fair Clinical Impression: Cough - Discharge Information Instructions: Cough, Adult, [id number] Forms: ED Department Discharge Care Plan Goals: The patient was advised of the examination, lab and x-ray results during the visit. The intermediate was advised of the results as well. The intermediate was encouraged to follow the recommendations for thickened liquids or get clarification of those orders. If the patient has any additional symptoms or concerns, the patient should visit his primary care facility or return to the emergency department. - My Orders Last 24 Hours: My Active Orders 10/24/17 13:23 Chest 2V [CR] Urgent - Assessment/Plan Last 24 Hours: My Active Orders 10/24/17 13:23 Chest 2V [CR] Urgent
[2017-10-24 14:00] LABS: CHLORIDE,CL 97 mmol/L (101-111); SODIUM,NA 133 mmol/L (135-145)
--- NOTE | 2017-10-24 14:59 | CR ---
Clinical history: 87-year-old afebrile male at bed rest who recently completed a course of antibiotic s for "aspiration" (WBC 11,000). Interpretation: AP lateral chest radiograph abnormal but relatively improved radiographically since 14 September 2017. 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 Sternotomy wires and mediastinal clips. Cardiac pacemaker leads intact. Chronic right middle and lower lobe consolidation relatively less dense than on Cielo exam i.e. relat natalie improvement this probable aspiration pneumonia. No new signs of focal lobar consolidation. Chronic cardiomegaly without new signs of alveolar edema or dependent pleural fluid accumulation i.e. no heart failure.
[2017-10-24 15:04] VITALS: BP 89/43
== END 2017-10-24 15:24 ==
LOC: DL.ED 13:23
DX: R05 Cough (principal); E11.9 Type 2 diabetes mellitus without complications; K21.9 Gastro-esophageal reflux disease without esophagitis; D64.9 Anemia, unspecified; I11.0 Hypertensive heart disease with heart failure; I50.9 Heart failure, unspecified; E78.00 Pure hypercholesterolemia, unspecified; I48.91 Unspecified atrial fibrillation; Z79.01 Long term (current) use of anticoagulants; Z79.82 Long term (current) use of aspirin; Z79.899 Other long term (current) drug therapy; Z88.6 Allergy status to analgesic agent
CPT/HCPCS: 36415; 71046; 80053; 85025; 99283; 99285

== ENCOUNTER 2017-10-25 09:49 | Inpatient (IN) | payer MEDICARE, BC ==
--- NOTE | 2017-10-25 10:05 | EDM.PDOC ---
ED HPI GENERAL MEDICAL PROBLEM - General Chief Complaint: Abdominal Pain Stated Complaint: abdominal pain Time Seen by Provider: 10/25/17 09:55 Source of Information: Reports: Patient, EMS, EMS Notes Reviewed, Group Home Records, Provider (Chel Newsome), RN, RN Notes Reviewed History Limitations: Reports: No Limitations - History of Present Illness INITIAL COMMENTS - FREE TEXT/NARRATIVE: Pt presents to the ER from [facility] per [facility]. Report from [facility] Roberts, was hypoxia, tachypnea, and tachycardia. Patient was seen in the ER yesterday for a coughing spell after eating. Previous ER documentation states that recommendations were made for the patient to receive thickened liquids and crushed medications, and these recommendations were not followed. Patient has a history of right femoral head fracture on 10/10/17. Patient continues to have hip pain. Today the patient presents to the ER soaked through with urine, and nursing at [facility] reports the patient has had no medications since yesterday. Patient c/o severe pain. He denies SOB, chest pain. He admits to severe abdominal pain, points to the RUQ, but states the pain starts on the Left side and moves across the abdomen. Patient states he "thinks" he has had his gallbladder and appendix removed. Patient rates the abdominal pain 01/19. - Related Data Allergies Allergy/AdvReac Type Severity Reaction Status Date / Time aspirin Allergy Bleeding Verified 10/24/17 13:42 Home Meds: Home Meds Alendronate Sodium [Fosamax] 1 tab PO .FRI 03/28/17 [History] Docusate Sodium [Colace] 1 cap PO BID PRN 03/28/17 [History] Fish Oil/[place]-3 Fatty Acids [Fish Oil 1,000 MG] 1,000 mg PO BID 03/28/17 [ History] Ipratropium [place] 2 sprays NASBOTH TID 03/28/17 [History] Sennosides/Docusate Sodium [Senna-S Tablet] 1 tab PO BID 05/18/17 [History] Aspirin [Halfprin] 81 mg PO DAILY 07/10/17 [History] Furosemide [Lasix] 20 mg PO BID 07/10/17 [History] Clopidogrel [Plavix] 75 mg PO DAILY #30 tablet 08/01/17 [Rx] Hydrocortisone [Hydrocortisone 2.5% Crm] 0 gm TOP BID PRN #1 tube 08/01/17 [Rx] Menthol/Methyl Salicylate [Icy Hot] 0 gm TOP Q8H PRN tube 08/01/17 [Rx] Metoprolol Succinate [Toprol XL] 12.5 mg PO DAILY 30 Days tab.er 08/01/17 [Rx] Midodrine 5 mg PO BID #30 tablet 08/01/17 [Rx] atorvaSTATin [Lipitor] 40 mg PO BEDTIME #30 tablet 08/01/17 [Rx] Acetaminophen [Mapap] 1,000 mg PO TID 10/13/17 [History] Hydrocodone/Acetaminophen [Hydrocodon-Acetaminophen 5-325] 1 tab PO Q6H PRN 09/27 [History] Levofloxacin [Levaquin] 750 mg PO Q48H 10/13/17 [History] Pantoprazole Sodium [Protonix] 40 mg PO DAILY 10/13/17 [History] Polyethylene Glycol 3350 [MiraLAX] 17 gm PO DAILY 10/13/17 [History] Warfarin [Coumadin] 5 mg PO DAILY 10/13/17 [History] Calcium Carbonate/Vitamin D3 [Liquid Calcium 600-Vit D3 Sfgl] 1 cap PO DAILY [History] DULoxetine HCl [Duloxetine HCl] 30 mg PO DAILY 10/24/17 [History] Gabapentin [Neurontin] 100 mg PO TID 10/24/17 [History] Past Medical History - Past Health History Medical/Surgical History: Denies Medical/Surgical History (Probable coronary artery disease) HEENT History: Reports: Cataract, Hard of Hearing, Impaired Vision Cardiovascular History: Reports: Afib, Bypass, CAD, Heart Failure, High Cholesterol, Hypertension, [place], Pacemaker, SOB on Exertion Other Cardiovascular History: NSTEMI; bradycardia Respiratory History: Reports: SOB, Other (See Below) Other Respiratory History: shortness of breath, pulmonary fibrosis Gastrointestinal History: Reports: GERD, Other (See Below) Other Gastrointestinal History: left inguinal hernia Genitourinary History: Reports: Prostate Disorder Musculoskeletal History: Reports: Other (See Below) Other Musculoskeletal History: wedge compression fx lumbar & thoracic spine Neurological History: Reports: None Psychiatric History: Reports: None Endocrine/Metabolic History: Reports: Diabetes, Type II Hematologic History: Reports: Anemia Immunologic History: Reports: None Oncologic (Cancer) History: Reports: None Dermatologic History: Reports: None - Infectious Disease History Infectious Disease History: Reports: None - Past Surgical History Head Surgeries/Procedures: Reports: None HEENT Surgical History: Reports: Cataract Surgery Cardiovascular Surgical History: Reports: Coronary Artery Bypass, Pacer Respiratory Surgical History: Reports: None GI Surgical History: Reports: Appendectomy, Cholecystectomy Male Surgical History: Reports: None Endocrine Surgical History: Reports: None Neurological Surgical History: Reports: None Musculoskeletal Surgical History: Reports: None Oncologic Surgical History: Reports: None Dermatological Surgical History: Reports: Other (See Below) Social & Family History - Family History Family Medical History: Unobtainable - Tobacco Use Smoking Status *Q: Unknown Ever Smoked - Caffeine Use Caffeine Use: Reports: Coffee, Soda, Tea Caffeine Use Comment: unable to obtain - Recreational Drug Use Recreational Drug Use: No - Living Situation & Occupation Occupation: Retired ED ROS GENERAL - Review of Systems Review Of Systems: ROS reveals no pertinent complaints other than HPI. ED EXAM, GENERAL - Physical Exam Exam: See Below Exam Limited By: No Limitations General Appearance: Alert, WD/WN, Moderate Distress Eye Exam: Bilateral Eye: EOMI, Normal Inspection Ears: Normal External Exam, Hearing Grossly Normal Nose: Normal Inspection Throat/Mouth: Normal Inspection, Normal Voice Head: Atraumatic, Normocephalic Neck: Normal Inspection, Non-Tender, Limited Range of Motion Respiratory/Chest: Decreased Breath Sounds, Retractions, Splinting Cardiovascular: Normal Peripheral Pulses, No Edema, No Gallop, No JVD, No Murmur , No Rub, Irregularly Irregular Peripheral Pulses: 1+: Radial (L), Radial (R), Dorsalis Pedis (L), Dorsalis Pedis (R) GI/Abdominal: Guarding, Tender, Abnormal Bowel Sounds (hypoactive) (Male) Exam: Deferred Rectal (Males) Exam: Deferred Back Exam: Normal Inspection, Decreased Range of Motion Extremities: Normal Inspection, Non-Tender, No Pedal Edema, Normal Capillary Refill, Limited Range of Motion Neurological: Alert, Oriented, CN II-XII Intact, Normal Cognition Psychiatric: Depressed Mood, Flat Affect, Tearful Skin Exam: Warm, Dry, Increased Warmth (right elbow), Pallor, Other (incision to right upper thigh post right femoral head fracture repait) Lymphatic: No Adenopathy Course - Vital Signs Last Recorded V/S: Last Vital Signs Temp 98.4 F 10/25/17 09:21 Pulse 90 10/25/17 10:05 Resp 24 H 10/25/17 10:05 BP 159/104 H 10/25/17 10:05 Pulse Ox 94 L 10/25/17 10:05 - Orders/Labs/Meds Orders: Active Orders 24 hr Category Date Time Status Peripheral IV Care [RC] . DIRECTED Care 10/25/17 09:18 Active CULTURE BLOOD [BC] Stat Lab 10/25/17 09:28 Received CULTURE BLOOD [BC] Stat Lab 10/25/17 09:35 Received DRUG SCREEN URINE BIORAD [URCHEM] Stat Lab 10/25/17 09:18 Ordered UA W/MICROSCOPIC [URIN] Stat Lab 10/25/17 09:18 Ordered Sodium Chloride 0.9% [Normal Saline] 1,000 ml Med 10/25/17 10:53 Active IV .BOLUS Sodium Chloride 0.9% [Saline Flush] Med 10/25/17 09:17 Active 10 ml FLUSH ASDIRECTED PRN Blood Culture x2 Reflex Set [OM.PC] Stat Oth 10/25/17 09:18 Ordered Peripheral IV Insertion Adult [OM.PC] Stat Oth 10/25/17 09:17 Ordered Medication Orders Sodium Chloride (Normal Saline) 1,000 mls @ 999 mls/hr IV .BOLUS ONE Stop: 10/25/17 11:53 Last Admin: 10/25/17 10:57 Dose: 999 mls/hr Sodium Chloride (Saline Flush) 10 ml FLUSH ASDIRECTED PRN PRN Reason: Keep Vein Open Labs: Laboratory Tests 10/25/17 10/25/17 10/25/17 Range/Units 09:28 09:28 09:28 WBC 9.0 (5.0-10.0) 10^3/uL RBC 2.49 L (4.6-6.2) 10^6/uL Hgb 8.6 L (14.0-18.0) g/dL Hct 25.8 L (40.0-54.0) % MCV 103.6 H (80-100) fL MCH 34.5 H (27.0-34.0) pg MCHC 33.3 (33.0-35.0) g/dL Plt Count 264 (150-450) 10^3/uL Neut % (Auto) 78.8 H (42.2-75.2) % Lymph % (Auto) 13.9 L (20.5-50.1) % [place] % (Auto) 7.1 (2-8) % Eos % (Auto) 0.1 L (1.0-3.0) % Baso % (Auto) 0.1 (0.0-1.0) % Sodium 135 (135-145) mmol/L Potassium 4.2 (3.6-5.0) mmol/L Chloride 98 L (101-111) mmol/L Carbon Dioxide 29.0 (21.0-31.0) mmol/L Anion Gap 12.2 BUN 46 H (7-18) mg/dL Creatinine 1.2 (0.6-1.3) mg/dL Est Cr Clr Drug Dosing 40.26 mL/min Estimated GFR (MDRD) 57 BUN/Creatinine Ratio 38.33 Glucose 108 H (74-105) mg/dL Lactic Acid 2.5 H (0.5-2.2) mmol/L Calcium 8.1 L (8.4-10.2) mg/dl Total Bilirubin 2.0 H (0.2-1.0) mg/dL AST 40 (10-42) IU/L ALT 20 (10-60) IU/L Alkaline Phosphatase 147 H (42-121) IU/L B-Natriuretic Peptide (0-100) pg/ml Total Protein 7.0 (6.7-8.2) g/dl Albumin 2.1 L (3.2-5.5) g/dl Globulin 4.9 Albumin/Globulin Ratio 0.43 05/16/18 Range/Units 09:28 WBC (5.0-10.0) 10^3/uL RBC (4.6-6.2) 10^6/uL Hgb (14.0-18.0) g/dL Hct (40.0-54.0) % MCV (80-100) fL MCH (27.0-34.0) pg MCHC (33.0-35.0) g/dL Plt Count (150-450) 10^3/uL Neut % (Auto) (42.2-75.2) % Lymph % (Auto) (20.5-50.1) % Centre % (Auto) (2-8) % Eos % (Auto) (1.0-3.0) % Baso % (Auto) (0.0-1.0) % Sodium (135-145) mmol/L Potassium (3.6-5.0) mmol/L Chloride (101-111) mmol/L Carbon Dioxide (21.0-31.0) mmol/L Anion Gap BUN (7-18) mg/dL Creatinine (0.6-1.3) mg/dL Est Cr Clr Drug Dosing mL/min Estimated GFR (MDRD) BUN/Creatinine Ratio Glucose (74-105) mg/dL Lactic Acid (0.5-2.2) mmol/L Calcium (8.4-10.2) mg/dl Total Bilirubin (0.2-1.0) mg/dL AST (10-42) IU/L ALT (10-60) IU/L Alkaline Phosphatase (42-121) IU/L B-Natriuretic Peptide 385 H (0-100) pg/ml Total Protein (6.7-8.2) g/dl Albumin (3.2-5.5) g/dl Globulin Albumin/Globulin Ratio Meds: Medications Generic Name Dose Route Start Last Admin Trade Name Freq PRN Reason Stop Dose Admin Sodium Chloride 1,000 mls @ 999 mls/hr 10/25/17 10:53 10/25/17 10:57 Normal Saline IV 10/25/17 11:53 999 mls/hr .BOLUS ONE Administration Sodium Chloride 10 ml 10/25/17 09:17 Saline Flush FLUSH ASDIRECTED PRN Keep Vein Open Discontinued Medications Generic Name Dose Route Start Last Admin Trade Name Freq PRN Reason Stop Dose Admin Piperacillin Sod/Tazobactam 100 mls @ 200 mls/hr 10/25/17 10:52 10/25/17 11: 09 Sod 3.375 gm/ Sodium Chloride IV 10/25/17 11:21 200 mls/hr ONETIME ONE Administration Morphine Sulfate 2 mg 10/25/17 10:10 10/25/17 10:54 Morphine IVPUSH 10/25/17 10:11 2 mg ONETIME ONE Administration - Radiology Interpretation Free Text/Narrative:: Abdominal CT: Multilobar pneumonia. Obstipation See rad report Departure - Departure Time of Disposition: 11:49 Disposition: Admitted As Inpatient 67 Condition: Poor Clinical Impression: Pneumonia Qualifiers: Pneumonia type: aspiration pneumonia Aspiration pneumonia type: unspecified Laterality: bilateral Lung location: unspecified part of lung Qualified Code(s) : J69.0 - Pneumonitis due to inhalation of food and vomit - Discharge Information Forms: ED Department Discharge - My Orders Last 24 Hours: My Active Orders 10/25/17 09:17 Sodium Chloride 0.9% [Saline Flush] 10 ml FLUSH ASDIRECTED PRN Peripheral IV Insertion Adult [OM.PC] Stat 10/25/17 09:18 Peripheral IV Care [RC] . DIRECTED DRUG SCREEN URINE BIORAD [URCHEM] Stat UA W/MICROSCOPIC [URIN] Stat Blood Culture x2 Reflex Set [OM.PC] Stat 10/25/17 09:28 CULTURE BLOOD [BC] Stat 10/25/17 09:35 CULTURE BLOOD [BC] Stat 10/25/17 10:53 Sodium Chloride 0.9% [Normal Saline] 1,000 ml IV .BOLUS - Assessment/Plan Last 24 Hours: My Active Orders 10/25/17 09:17 Sodium Chloride 0.9% [Saline Flush] 10 ml FLUSH ASDIRECTED PRN Peripheral IV Insertion Adult [OM.PC] Stat 10/25/17 09:18 Peripheral IV Care [RC] . DIRECTED DRUG SCREEN URINE BIORAD [URCHEM] Stat UA W/MICROSCOPIC [URIN] Stat Blood Culture x2 Reflex Set [.] Stat 10/25/17 09:28 CULTURE BLOOD [BC] Stat 10/25/17 09:35 CULTURE BLOOD [BC] Stat 10/25/17 10:53 Sodium Chloride 0.9% [Normal Saline] 1,000 ml IV .BOLUS
[2017-10-25] MEDS ORDERED: Morphine 2 MG/ML Syringe IVPUSH ONE (10:10)
[2017-10-25 10:14] LABS: ANION GAP 12.2
[2017-10-25] MEDS ORDERED: Piperacillin/Tazobactam 3.375 GM in Sodium Chloride 0.9% 100 ML IV ONE (10:52)
[2017-10-25] MEDS ORDERED: Sodium Chloride 0.9% 1,000 ML IV ONE (10:53)
--- NOTE | 2017-10-25 11:21 | CT ---
CLINICAL HISTORY: halfway patient in the emergency department with clinical pneumonitis and keeley re abdominal pain. SCAN TECHNIQUE: Volume acquisition of data from the lower chest, abdomen and pelvis obtained without oral or IV contrast while the patient was lying supine on the Siemens multislice scanner [place], [place]. All data archived in the PACS system for storage, reformatting a xial/sagittal/coronal planes and study (lung/mediastinal and abdominal soft tissue windows close malinda . INTERPRETATION: 1. Multilevel insufficiency compression fractures with particularly severe involvement (vertebra plan a) L5, L1, T9 and T8 bodies. Associated severe kyphosis dorsal spine and exaggerated lumbar lordosis osteoporotic patient. Right hip "pin". 2. Abnormally enlarged cardiac silhouette (sternotomy wires, cardiac pacemaker and mediastinal wires) . No pericardial effusion, cephalization of vascular flow, signs of alveolar edema. Small pleural eff usion right lung base with underlying infiltrate or infarct. 3. Multilobar pneumonic like consolidation bilaterally (dense infiltrate with underlying air bronchog dustin), i.e., pneumonia. 4. Stool impaction in rectum but no sign of proximal large or small bowel obstruction. 5. No pelvic or abdominal mass lesion. No retroperitoneal lymphadenopathy. No ascites or free intrape ritoneal air. 6. Unenhanced liver, stomach, spleen, atrophic pancreas and kidneys are unremarkable. Calcifications normal caliber aortoiliac vessels, i.e., no aneurysm or dissection. CONCLUSION: Abnormal heart and spine. Multilobar pneumonia. Obstipation.
[2017-10-25] MEDS ORDERED: Albuterol/Ipratropium 3.0-0.5 MG/3 ML Neb Soln NEB PRN (13:12)
[2017-10-25] MEDS ORDERED: Polyethylene Glycol 3350 Powder 17 GM Packet PO PRN (13:12)
[2017-10-25] MEDS ORDERED: Bisacodyl 5 MG Tab PO PRN (13:12)
[2017-10-25] MEDS ORDERED: Ondansetron 4 MG/2 ML SDV IVPUSH PRN (13:12)
[2017-10-25] MEDS ORDERED: Magnesium Hydroxide 400 MG/5 ML Susp 30 ML Cup PO PRN (13:12)
[2017-10-25] MEDS ORDERED: Acetaminophen 325 MG Tab PO PRN (13:12)
[2017-10-25] MEDS ORDERED: Docusate Sodium 100 MG Cap PO PRN ×2 (13:12→13:17)
[2017-10-25] MEDS ORDERED: Menthol/Methyl Salicylate 85 GM Tube TOP PRN (13:17)
[2017-10-25] MEDS ORDERED: Hydrocortisone 2.5% Crm 30 GM Tube TOP PRN (13:17)
[2017-10-25] MEDS ORDERED: Furosemide 20 MG/2 ML VIAL IVPUSH ONE (13:21)
[2017-10-25] MEDS ORDERED: Piperacillin/Tazobactam 3.375 GM in Sodium Chloride 0.9% 100 ML IV SCH (13:30)
[2017-10-25] MEDS ORDERED: Furosemide 20 MG Tab PO SCH (14:00)
[2017-10-25] MEDS: Gabapentin 100 MG Cap PO SCH ×2 (14:10→23:09)
[2017-10-25] MEDS: Acetaminophen 500 MG Tab PO SCH ×2 (14:11→22:56)
[2017-10-25] MEDS: Acetaminophen/HYDROcodone 325-5 MG Tab PO PRN ×2 (14:11→23:10)
[2017-10-25] MEDS ORDERED: Warfarin 5 MG Tab PO ONE (14:30)
[2017-10-25] MEDS ORDERED: Bisacodyl 10 MG Supp RECTAL PRN (14:59)
[2017-10-25] MEDS: Albuterol/Ipratropium 3.0-0.5 MG/3 ML Neb Soln NEB SCH ×2 (15:23→22:55)
[2017-10-25] MEDS: Morphine 2 MG/ML Syringe IVPUSH PRN ×2 (17:28→22:54)
[2017-10-25] MEDS: Piperacillin/Tazobactam 3.375 GM in Sodium Chloride 0.9% 100 ML IV SCH (17:28)
[2017-10-25 18:45] LABS: O2 DELIVERY DEVICE NASAL CANNULA
[2017-10-25 18:49] LABS: BASE EXCESS ARTERIAL 2 mmol/L ((-2)-(+3)); BICARBONATE,ARTERIAL 25.7 mmol/L (22-26); O2 SATURATION ARTERIAL 97 % (95-100); PCO2 ARTERIAL 40 mmHg (35-45); PO2 ARTERIAL 71 mmHg (70-100)
[2017-10-25] MEDS ORDERED: Scopolamine 1.5 MG Transdermal Patch TRDERM SCH (19:00)
--- NOTE | 2017-10-25 19:41 | HP ---
DATE OF SERVICE: 10/25/2017 CHIEF COMPLAINT: Abdominal pain. HISTORY OF PRESENTING ILLNESS: Mr. 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 At this time, the patient complains of abdominal pain which is mostly in the lower abdomen, 3 to 4/10 in intensity. No clear aggravating factors. No clear relieving factors. It has been 3 days since he had a bowel movement. Not associated with nausea or vomiting. Also complains of having cough with sputum, not sure what the color of the sputum is. He denied any fevers or chills. No complaints of chest pain. Complains of mild shortness of breath. The patient denied any history of chest pains on exertion, but has mild dyspnea on exertion. No history of orthopnea or paroxysmal nocturnal dyspnea. The patient denied any history of hematemesis, hematochezia, or melenic stools. Normal bowel and bladder habits otherwise. REVIEW OF SYSTEMS: A complete review of system including skin, ear, nose, and throat, cardiovascular system, respiratory system, gastrointestinal system, genitourinary system, hematology, oncology, neurology, allergy, immunology, constitutional were all evaluated and were negative except for the above-said notes. PAST MEDICAL HISTORY: Significant for hypertension, hyperlipidemia, type 2 diabetes mellitus, coronary artery disease, chronic congestive heart failure, atrial fibrillation, severe aortic stenosis, history of gastroesophageal reflux disease. PAST SURGICAL HISTORY: Significant for cholecystectomy and coronary artery bypass graft. FAMILY HISTORY: Significant for heart attack in his father. SOCIAL HISTORY: The patient had history of smoking tobacco in the past. Quit smoking in 1979. No history of alcohol intake. ALLERGIES: The patient noted to have allergies to aspirin. HOME MEDICATIONS: 1. Lipitor 40 mg at bedtime. 2. Coumadin 5 mg daily. 3. MiraLax 17 g daily. 4. Protonix 40 mg daily. 5. Midodrine 5 mg twice a day. 6. Toprol-XL 12.5 mg daily. 7. Levaquin 750 mg every 48 hours. 8. Hydrocortisone topical twice a day as needed. 9. Percocet 5/325 every 6 hours as needed. 10.Neurontin 100 mg three times a day. 11.Lasix 20 mg twice a day. 12.Colace 1 cap twice a day. 13.Plavix 75 mg daily. 14.Aspirin 81 mg daily. 15.Acetaminophen 1000 mg three times a day. PHYSICAL EXAMINATION: Vital signs: Temperature of 98.4, pulse of 90, blood pressure of 159/104, respiratory rate of 24, saturating at 94% on 2 L of oxygen. General appearance: The patient is well oriented to time, place, and person. Follows commands spontaneously. Cardiovascular system: S1, S2 heard with normal intensity. No gallops. Respiratory System: Bilateral crepitations, mostly at the bases. No wheezes. Abdomen: Soft. Bowel sounds positive. Nontender. No rigidity. No guarding. No rebound tenderness. Except for mild tenderness on the lower abdomen. Extremities: No edema in bilateral lower extremities. Neurology: No gross focal neurological deficit. LABORATORY DATA: WBC 9, hemoglobin 8.6, hematocrit 25.8, platelet count 264. Sodium 135, potassium 4.2, chloride 98, bicarb 29, BUN 46, creatinine 1.2. Glucose 108, lactic acid 2.5, AST 40, ALT 20, B-natriuretic peptide 385. CT scan of the abdomen and pelvis shows evidence of obstipation with stool impaction in the rectum, but no signs of proximal large bowel or small bowel obstruction, and also incidental noted was multilobar pneumonia, mostly involving the lower lobes. Cardiac pacemaker in place. ASSESSMENT: 1. Pneumonia, possible aspiration pneumonia. 2. Possible sepsis. 3. Acute hypoxia. 4. Hypertension. 5. Hyperlipidemia. 6. Status post pacemaker placed. 7. Atrial fibrillation. 8. On chronic anticoagulation with Coumadin. 9. Hyperlipidemia. 10.Coronary artery disease, status post coronary artery bypass graft. 11.Obstipation. PLAN: 1. Pneumonia. The patient is noted to have multilobar pneumonia, possible aspiration. We will have speech and swallow evaluation done at this time. We will have him on broad-spectrum antibiotics with IV Zosyn. We will discontinue the IV fluids for now. We will check blood cultures and sputum cultures, and titrate the antibiotics once we have the culture reports available. 2. Hypertension. The patient was hypotensive at the time of admission, requiring fluid bolus. We will discontinue IV fluids as he has bilateral crepitations heard. He may benefit from mild dose of Lasix at this time. 3. Acute hypoxia. The patient continues to be hypoxic. This could be resulting from multilobar pneumonia. Continue supplemental oxygen. We will have him on nebulizer treatment for now. Continue supplemental oxygen to maintain a saturation of 95%. 4. Congestive heart failure. The patient could have acute congestive heart failure. We will give him a mild dose of Lasix. We will hold IV fluids for now. He was given fluid bolus secondary to hypotension. 5. Possible sepsis. The patient was noted to have tachycardia and underlying pneumonia with hypotension with possible sepsis with elevated lactic acid. We will follow with serial lactic acid levels. Continue with broad- spectrum antibiotics. 6. Hypertension. The patient's blood pressure seems to be in acceptable range. Try to avoid any hypotensive episodes. 7. Coronary artery disease. The patient denies any ongoing chest pains. We will follow serial cardiac enzymes. 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 He is status post pacemaker placed. 8. Code status. The patient wants to be DNR/DNI. 9. Discussed with [facility] staff, regarding the plan of care. Reviewed the labs and medications. Reviewed the old charts. [facility] /[id number]
[2017-10-25] MEDS ORDERED: Non-Formulary Medication 1 Each (Fish Oil/Omega-3 Fatty Acids [Fish Oil 1,000 Mg] 1,000 MG PO SCH (21:00)
[2017-10-25] MEDS ORDERED: atorvaSTATin 20 MG Tab PO SCH (21:00)
[2017-10-25] MEDS ORDERED: Midodrine 2.5 MG Tab PO SCH (21:00)
[2017-10-26] MEDS: Piperacillin/Tazobactam 3.375 GM in Sodium Chloride 0.9% 100 ML IV SCH ×5 (00:24→23:26)
[2017-10-26] MEDS: Sodium Chloride 0.9% 10 ML Syringe FLUSH PRN ×6 (00:24→23:25)
[2017-10-26] MEDS: Morphine 2 MG/ML Syringe IVPUSH PRN (04:32)
[2017-10-26] MEDS: Pantoprazole 40 MG Tab.CR PO SCH (06:03)
[2017-10-26] MEDS: Albuterol/Ipratropium 3.0-0.5 MG/3 ML Neb Soln NEB SCH ×3 (07:46→23:23)
[2017-10-26] MEDS ORDERED: Calcium Carbonate/Vitamin D3 1250 MG-200 Unit Tab PO SCH (09:00)
[2017-10-26] MEDS ORDERED: Warfarin 2.5 MG Tab PO SCH (09:00)
[2017-10-26] MEDS ORDERED: DULoxetine 30 MG Cap PO SCH (09:00)
[2017-10-26] MEDS: Polyethylene Glycol 3350 Powder 17 GM Packet PO SCH (11:03)
[2017-10-26] MEDS: Gabapentin 100 MG Cap PO SCH ×3 (11:06→20:27)
[2017-10-26] MEDS: Furosemide 20 MG Tab PO SCH ×2 (11:06→18:09)
[2017-10-26] MEDS: Acetaminophen 500 MG Tab PO SCH ×3 (11:07→20:27)
--- NOTE | 2017-10-26 11:22 | PCM.PN ---
- General Info Date of Service: 10/26/17 Admission Dx/Problem (Free Text): pneumonia Subjective Update: The patient is a 87-year-old gentleman with a history of hypertension, diabetes , dyslipidemia, coronary artery disease, chronic congestive heart failure, atrial fibrillation. He presented from a long term with complaints of abdominal pain. The patient was admitted in a serious condition. Overnight remained stable though. There is no further complaints of abdominal pain. He is alert and pleasant. He was noted to have aspiration, now on modified liquids Functional Status: Reports: Pain Controlled - Review of Systems General: Denies: Fever Pulmonary: Reports: Shortness of Breath. Denies: Wheezing Cardiovascular: Denies: Chest Pain Gastrointestinal: Denies: Abdominal Pain (Although overnight did receive IV morphine for abdominal pain) Genitourinary: Denies: Dysuria - Patient Data Vitals - Most Recent: Last Vital Signs Temp 37.1 C 10/26/17 07:54 Pulse 94 10/26/17 07:54 Resp 20 10/26/17 07:54 BP 93/45 L 10/26/17 07:54 Pulse Ox 99 10/26/17 07:54 Weight - Most Recent: 59.557 kg I&O - Last 24 Hours: Intake & Output 10/25/17 10/26/17 10/26/17 22:59 06:59 14:59 Intake Total 154 100 Output Total 450 350 Balance -450 -196 100 Lab Results Last 24 Hours: Laboratory Results - last 24 hr 10/25/17 10/25/17 10/25/17 Range/Units 09:28 13:33 13:45 WBC (5.0-10.0) 10^3/uL RBC (4.6-6.2) 10^6/uL Hgb (14.0-18.0) g/dL Hct (40.0-54.0) % MCV (80-100) fL MCH (27.0-34.0) pg MCHC (33.0-35.0) g/dL Plt Count (150-450) 10^3/uL PT 19.8 H (9.0-12.0) SEC INR 2.0 H (0.9-1.2) ABG pH (7.35-7.45) ABG pCO2 (35-45) mmHg ABG pO2 (70-100) mmHg ABG HCO3 (22-26) mmol/L ABG O2 Saturation (95-100) % ABG Base Excess ((-2)-(+3)) mmol/L Edmundo Test O2 Delivery Device Sodium (135-145) mmol/L Potassium (3.6-5.0) mmol/L Chloride (101-111) mmol/L Carbon Dioxide (21.0-31.0) mmol/L Anion Gap BUN (7-18) mg/dL Creatinine (0.6-1.3) mg/dL Est Cr Clr Drug Dosing mL/min Estimated GFR (MDRD) Glucose (74-105) mg/dL Lactic Acid (0.5-2.2) mmol/L Calcium (8.4-10.2) mg/dl Phosphorus (2.5-4.6) mg/dL Magnesium (1.8-2.5) mg/dL Troponin I 0.05 H* (0.00-0.02) ng/ml B-Natriuretic Peptide (0-100) pg/ml Urine Color Yellow (YELLOW) Urine Appearance Slightly cloudy (CLEAR) Urine pH 5.5 (5.0-9.0) Ur Specific [place] 1.010 (1.005-1.030) Urine Protein Negative (NEGATIVE) Urine Glucose (UA) Negative (NEGATIVE) Urine Ketones Negative (NEGATIVE) Urine Occult Blood Trace-intact H (NEGATIVE) Urine Nitrite Negative (NEGATIVE) Urine Bilirubin Negative (NEGATIVE) Urine Urobilinogen 1.0 (0.2-1.0) mg/dL Ur Leukocyte Esterase Negative (NEGATIVE) Urine RBC 0-5 /HPF Urine WBC 0-5 (0-5/HPF) /HPF Ur Epithelial Cells Rare /HPF Uric Acid Crystals Many Amorphous Sediment Few (0/HPF) /HPF Urine Bacteria Rare (0-FEW/HPF) /HPF Hyaline Casts Rare H /LPF Granular Casts Rare /LPF Fine Granular Casts Few H (0/LPF) /LPF Urine Mucus Rare /LPF Urine Opiates Screen (NEGATIVE) Ur Oxycodone Screen (NEGATIVE) Urine Methadone Screen (NEGATIVE) Ur Barbiturates Screen (NEGATIVE) U Tricyclic Antidepress (NEGATIVE) Ur Phencyclidine Scrn (NEGATIVE) Ur Amphetamine Screen (NEGATIVE) U Methamphetamines Scrn (NEGATIVE) Urine MDMA Screen (NEGATIVE) U Benzodiazepines Scrn (NEGATIVE) Urine Cocaine Screen (NEGATIVE) U Marijuana (THC) Screen (NEGATIVE) 10/25/17 10/25/17 10/25/17 Range/Units 13:45 14:38 18:17 WBC (5.0-10.0) 10^3/uL RBC (4.6-6.2) 10^6/uL Hgb (14.0-18.0) g/dL Hct (40.0-54.0) % MCV (80-100) fL MCH (27.0-34.0) pg MCHC (33.0-35.0) g/dL Plt Count (150-450) 10^3/uL PT (9.0-12.0) SEC INR (0.9-1.2) ABG pH 7.42 (7.35-7.45) ABG pCO2 40 (35-45) mmHg ABG pO2 71 (70-100) mmHg ABG HCO3 25.7 (22-26) mmol/L ABG O2 Saturation 97 (95-100) % ABG Base Excess 2 ((-2)-(+3)) mmol/L Edmundo Test performed O2 Delivery Device Nasal cannula Sodium (135-145) mmol/L Potassium (3.6-5.0) mmol/L Chloride (101-111) mmol/L Carbon Dioxide (21.0-31.0) mmol/L Anion Gap BUN (7-18) mg/dL Creatinine (0.6-1.3) mg/dL Est Cr Clr Drug Dosing mL/min Estimated GFR (MDRD) Glucose (74-105) mg/dL Lactic Acid 2.4 H (0.5-2.2) mmol/L Calcium (8.4-10.2) mg/dl Phosphorus (2.5-4.6) mg/dL Magnesium (1.8-2.5) mg/dL Troponin I (0.00-0.02) ng/ml B-Natriuretic Peptide (0-100) pg/ml Urine Color (YELLOW) Urine Appearance (CLEAR) Urine pH (5.0-9.0) Ur Specific [place] (1.005-1.030) Urine Protein (NEGATIVE) Urine Glucose (UA) (NEGATIVE) Urine Ketones (NEGATIVE) Urine Occult Blood (NEGATIVE) Urine Nitrite (NEGATIVE) Urine Bilirubin (NEGATIVE) Urine Urobilinogen (0.2-1.0) mg/dL Ur Leukocyte Esterase (NEGATIVE) Urine RBC /HPF Urine WBC (0-5/HPF) /HPF Ur Epithelial Cells /HPF Uric Acid Crystals Amorphous Sediment (0/HPF) /HPF Urine Bacteria (0-FEW/HPF) /HPF Hyaline Casts /LPF Granular Casts /LPF Fine Granular Casts (0/LPF) /LPF Urine Mucus /LPF Urine Opiates Screen Positive H (NEGATIVE) Ur Oxycodone Screen Positive H (NEGATIVE) Urine Methadone Screen Negative (NEGATIVE) Ur Barbiturates Screen Negative (NEGATIVE) U Tricyclic Antidepress Negative (NEGATIVE) Ur Phencyclidine Scrn Negative (NEGATIVE) Ur Amphetamine Screen Negative (NEGATIVE) U Methamphetamines Scrn Negative (NEGATIVE) Urine MDMA Screen Negative (NEGATIVE) U Benzodiazepines Scrn Positive H (NEGATIVE) Urine Cocaine Screen Negative (NEGATIVE) U Marijuana (THC) Screen Negative (NEGATIVE) 10/25/17 10/25/17 10/25/17 Range/Units 18:34 21:15 23:10 WBC (5.0-10.0) 10^3/uL RBC (4.6-6.2) 10^6/uL Hgb (14.0-18.0) g/dL Hct (40.0-54.0) % MCV (80-100) fL MCH (27.0-34.0) pg MCHC (33.0-35.0) g/dL Plt Count (150-450) 10^3/uL PT (9.0-12.0) SEC INR (0.9-1.2) ABG pH (7.35-7.45) ABG pCO2 (35-45) mmHg ABG pO2 (70-100) mmHg ABG HCO3 (22-26) mmol/L ABG O2 Saturation (95-100) % ABG Base Excess ((-2)-(+3)) mmol/L Edmundo Test O2 Delivery Device Sodium (135-145) mmol/L Potassium (3.6-5.0) mmol/L Chloride (101-111) mmol/L Carbon Dioxide (21.0-31.0) mmol/L Anion Gap BUN (7-18) mg/dL Creatinine (0.6-1.3) mg/dL Est Cr Clr Drug Dosing mL/min Estimated GFR (MDRD) Glucose (74-105) mg/dL Lactic Acid 3.4 H 3.2 H (0.5-2.2) mmol/L Calcium (8.4-10.2) mg/dl Phosphorus (2.5-4.6) mg/dL Magnesium (1.8-2.5) mg/dL Troponin I 0.09 H* (0.00-0.02) ng/ml B-Natriuretic Peptide (0-100) pg/ml Urine Color (YELLOW) Urine Appearance (CLEAR) Urine pH (5.0-9.0) Ur Specific [place] (1.005-1.030) Urine Protein (NEGATIVE) Urine Glucose (UA) (NEGATIVE) Urine Ketones (NEGATIVE) Urine Occult Blood (NEGATIVE) Urine Nitrite (NEGATIVE) Urine Bilirubin (NEGATIVE) Urine Urobilinogen (0.2-1.0) mg/dL Ur Leukocyte Esterase (NEGATIVE) Urine RBC /HPF Urine WBC (0-5/HPF) /HPF Ur Epithelial Cells /HPF Uric Acid Crystals Amorphous Sediment (0/HPF) /HPF Urine Bacteria (0-FEW/HPF) /HPF Hyaline Casts /LPF Granular Casts /LPF Fine Granular Casts (0/LPF) /LPF Urine Mucus /LPF Urine Opiates Screen (NEGATIVE) Ur Oxycodone Screen (NEGATIVE) Urine Methadone Screen (NEGATIVE) Ur Barbiturates Screen (NEGATIVE) U Tricyclic Antidepress (NEGATIVE) Ur Phencyclidine Scrn (NEGATIVE) Ur Amphetamine Screen (NEGATIVE) U Methamphetamines Scrn (NEGATIVE) Urine MDMA Screen (NEGATIVE) U Benzodiazepines Scrn (NEGATIVE) Urine Cocaine Screen (NEGATIVE) U Marijuana (THC) Screen (NEGATIVE) 10/26/17 10/26/17 10/26/17 Range/Units 06:14 06:14 06:14 WBC 11.5 H (5.0-10.0) 10^3/uL RBC 2.46 L (4.6-6.2) 10^6/uL Hgb 8.4 L (14.0-18.0) g/dL Hct 25.7 L (40.0-54.0) % MCV 104.5 H (80-100) fL MCH 34.1 H (27.0-34.0) pg MCHC 32.7 L (33.0-35.0) g/dL Plt Count 242 (150-450) 10^3/uL PT 25.2 H (9.0-12.0) SEC INR 2.6 H (0.9-1.2) ABG pH (7.35-7.45) ABG pCO2 (35-45) mmHg ABG pO2 (70-100) mmHg ABG HCO3 (22-26) mmol/L ABG O2 Saturation (95-100) % ABG Base Excess ((-2)-(+3)) mmol/L Edmundo Test O2 Delivery Device Sodium 139 (135-145) mmol/L Potassium 4.0 (3.6-5.0) mmol/L Chloride 103 (101-111) mmol/L Carbon Dioxide 27.0 (21.0-31.0) mmol/L Anion Gap 13.0 BUN 45 H (7-18) mg/dL Creatinine 1.3 (0.6-1.3) mg/dL Est Cr Clr Drug Dosing 34.36 mL/min Estimated GFR (MDRD) 52 Glucose 124 H (74-105) mg/dL Lactic Acid (0.5-2.2) mmol/L Calcium 7.8 L (8.4-10.2) mg/dl Phosphorus 4.7 H (2.5-4.6) mg/dL Magnesium 2.0 (1.8-2.5) mg/dL Troponin I 0.15 H* (0.00-0.02) ng/ml B-Natriuretic Peptide 551 H (0-100) pg/ml Urine Color (YELLOW) Urine Appearance (CLEAR) Urine pH (5.0-9.0) Ur Specific [place] (1.005-1.030) Urine Protein (NEGATIVE) Urine Glucose (UA) (NEGATIVE) Urine Ketones (NEGATIVE) Urine Occult Blood (NEGATIVE) Urine Nitrite (NEGATIVE) Urine Bilirubin (NEGATIVE) Urine Urobilinogen (0.2-1.0) mg/dL Ur Leukocyte Esterase (NEGATIVE) Urine RBC /HPF Urine WBC (0-5/HPF) /HPF Ur Epithelial Cells /HPF Uric Acid Crystals Amorphous Sediment (0/HPF) /HPF Urine Bacteria (0-FEW/HPF) /HPF Hyaline Casts /LPF Granular Casts /LPF Fine Granular Casts (0/LPF) /LPF Urine Mucus /LPF Urine Opiates Screen (NEGATIVE) Ur Oxycodone Screen (NEGATIVE) Urine Methadone Screen (NEGATIVE) Ur Barbiturates Screen (NEGATIVE) U Tricyclic Antidepress (NEGATIVE) Ur Phencyclidine Scrn (NEGATIVE) Ur Amphetamine Screen (NEGATIVE) U Methamphetamines Scrn (NEGATIVE) Urine MDMA Screen (NEGATIVE) U Benzodiazepines Scrn (NEGATIVE) Urine Cocaine Screen (NEGATIVE) U Marijuana (THC) Screen (NEGATIVE) Evin Results Last 24 Hours: Microbiology 10/25/17 09:35 Aerobic Blood Culture - Preliminary Blood - Venous - Lab Draw NO GROWTH AFTER 1 DAY Anaerobic Blood Culture - Preliminary NO GROWTH AFTER 1 DAY 10/25/17 09:28 Aerobic Blood Culture - Preliminary Blood - Venous NO GROWTH AFTER 1 DAY Anaerobic Blood Culture - Preliminary NO GROWTH AFTER 1 DAY Med Orders - Current: Current Medications Acetaminophen (Tylenol) 650 mg PO Q4H PRN PRN Reason: Pain (Mild 1-3)/fever Acetaminophen (Tylenol Extra Strength) 1,000 mg PO TID [facility] Last Admin: 10/26/17 11:07 Dose: 1,000 mg Hydrocodone Bitart/Acetaminophen ([place] 325-5 Mg) 1 tab PO Q6H PRN PRN Reason: Pain Last Admin: 10/25/17 23:10 Dose: 1 tab Albuterol/Ipratropium (Duoneb 3.0-0.5 Mg/3 Ml) 3 ml NEB Q4H PRN PRN Reason: shortness of breath/wheezing Last Admin: 10/25/17 18:36 Dose: 3 ml Albuterol/Ipratropium (Duoneb 3.0-0.5 Mg/3 Ml) 3 ml NEB Q8HRRT [facility] Last Admin: 10/26/17 07:46 Dose: 3 ml Aspirin (Halfprin) 81 mg PO DAILY [facility] Atorvastatin Calcium (Lipitor) 40 mg PO BEDTIME [facility] Last Admin: 10/25/17 23:08 Dose: 40 mg Bisacodyl (Dulcolax) 5 mg PO DAILY PRN PRN Reason: Constipation Bisacodyl (Dulcolax) 10 mg RECTAL DAILY PRN PRN Reason: Constipation Last Admin: 10/25/17 15:42 Dose: 10 mg Calcium Carbonate (Calcium Carbonate/Vitamin D 1250 Mg-200 Unit) 1 tab PO DAILY [facility] Clopidogrel Bisulfate (Plavix) 75 mg PO DAILY [facility] Docusate Sodium (Colace) 100 mg PO BID PRN PRN Reason: Constipation Last Admin: 10/25/17 15:42 Dose: 100 mg Duloxetine HCl (Cymbalta) 30 mg PO DAILY [facility] Furosemide (Lasix) 20 mg PO BIDDIURETIC [facility] Last Admin: 10/26/17 11:06 Dose: 20 mg Gabapentin (Neurontin) 100 mg PO TID [facility] Last Admin: 10/26/17 11:06 Dose: 100 mg Hydrocortisone (Hydrocortisone 2.5% Crm) 0 gm TOP BID PRN PRN Reason: Itching Piperacillin Sod/Tazobactam (Sod 3.375 gm/ Sodium Chloride) 100 mls @ 200 mls/ hr IV Q6HR [facility] Last Infusion: 10/26/17 07:52 Dose: Infused Magnesium Hydroxide (Milk Of Magnesia) 30 ml PO Q12H PRN PRN Reason: Constipation Methyl Salicylate (Icy Hot Cream) 0 gm TOP Q8H PRN PRN Reason: Pain Metoprolol Succinate (Toprol Xl) 12.5 mg PO DAILY [facility] Midodrine (Midodrine) 5 mg PO 0800,1700 [facility] Morphine Sulfate (Morphine) 2 mg IVPUSH Q2H PRN PRN Reason: Pain (severe 7-10) Last Admin: 10/26/17 04:32 Dose: 2 mg Non-Formulary Medication (Ipratropium Jacob [Ipratropium Jacob]) 2 sprays NASBOTH TID [facility] Ondansetron HCl (Zofran) 4 mg IVPUSH Q4H PRN PRN Reason: Nausea/Vomiting Pantoprazole Sodium (Protonix) 40 mg PO ACBRK [facility] Last Admin: 10/26/17 06:03 Dose: 40 mg Polyethylene Glycol (Miralax) 17 gm PO DAILY PRN PRN Reason: Constipation Last Admin: 10/25/17 15:43 Dose: 17 gm Polyethylene Glycol (Miralax) 17 gm PO DAILY [facility] Last Admin: 10/26/17 11:03 Dose: 17 gm Scopolamine (Transderm-Scop) 1.5 mg TRDERM Q72H [facility] Last Admin: 10/25/17 19:38 Dose: 1.5 mg Senna/Docusate Sodium (Senna Plus) 1 tab PO BID [facility] Last Admin: 10/25/17 23:09 Dose: 1 tab Senna/Docusate Sodium (Senna Plus) 1 tab PO BID [facility] Sodium Chloride (Saline Flush) 10 ml FLUSH ASDIRECTED PRN PRN Reason: Keep Vein Open Last Admin: 10/26/17 05:56 Dose: 10 ml Warfarin Sodium (Pharmacy To Dose - Warfarin) 1 dose .XX ASDIRECTED [facility] Discontinued Medications Docusate Sodium (Colace) 100 mg PO BID PRN PRN Reason: Constipation Furosemide (Lasix) 20 mg PO BIDDIURETIC [facility] Last Admin: 10/25/17 14:58 Dose: Not Given Furosemide (Lasix) 20 mg IVPUSH ONETIME ONE Stop: 10/25/17 13:22 Last Admin: 10/25/17 14:10 Dose: 20 mg Piperacillin Sod/Tazobactam (Sod 3.375 gm/ Sodium Chloride) 100 mls @ 200 mls/ hr IV ONETIME ONE Stop: 10/25/17 11:21 Last Admin: 10/25/17 11:09 Dose: 200 mls/hr Sodium Chloride (Normal Saline) 1,000 mls @ 999 mls/hr IV .BOLUS ONE Stop: 10/25/17 11:53 Last Admin: 10/25/17 10:57 Dose: 999 mls/hr Midodrine (Midodrine) 5 mg PO BID [facility] Last Admin: 10/25/17 23:08 Dose: 5 mg Morphine Sulfate (Morphine) 2 mg IVPUSH ONETIME ONE Stop: 10/25/17 10:11 Last Admin: 10/25/17 10:54 Dose: 2 mg Non-Formulary Medication (Fish Oil/[place]-3 Fatty Acids [Fish Oil 1,000 Mg]) 1, 000 mg PO BID [facility] Warfarin Sodium (Coumadin) 5 mg PO DAILY [facility] Warfarin Sodium (Coumadin) 5 mg PO ONETIME ONE Stop: 10/25/17 14:31 Last Admin: 10/25/17 15:42 Dose: 5 mg - Exam General: Alert, Oriented Neck: Supple Lungs: Decreased Breath Sounds. No: Normal Respiratory Effort (Increased), Wheezing Cardiovascular: Irregular Rhythm, Murmurs (Systolic) GI/Abdominal Exam: Normal Bowel Sounds, Soft, Non-Tender Extremities: No Pedal Edema Skin: Warm Neurological: No New Focal Deficit, Other (Generally weak) Psy/Mental Status: Alert, Normal Affect, Normal Mood - Problem List & Annotations (1) Pneumonia SNOMED Code(s): 970955173 Code(s): J18.9 - PNEUMONIA, UNSPECIFIED ORGANISM Status: Acute Current Visit: Yes Qualifiers: Pneumonia type: aspiration pneumonia Aspiration pneumonia type: unspecified Laterality: bilateral Lung location: unspecified part of lung Qualified Code(s): J69.0 - Pneumonitis due to inhalation of food and vomit (2) Abdominal pain SNOMED Code(s): 86268872 Code(s): R10.9 - UNSPECIFIED ABDOMINAL PAIN Status: Acute Current Visit: No Qualifiers: Abdominal location: lower abdomen, unspecified Qualified Code(s): R10.30 - Lower abdominal pain, unspecified - Problem List Review Problem List Initiated/Reviewed/Updated: Yes - My Orders Last 24 Hours: My Active Orders 10/26/17 11:14 CULTURE SPUTUM + SMEAR [RM] Routine 10/26/17 21:00 Docusate Sodium/Sennosides [Senna Plus] 1 tab PO BID 10/27/17 05:15 BASIC METABOLIC PANEL,BMP [CHEM] AM CBC WITH AUTO DIFF [HEME] AM - Plan Plan:: The patient is a 87-year-old gentleman with a history of hypertension, diabetes , dyslipidemia, coronary artery disease, chronic congestive heart failure, atrial fibrillation. He presented from a long term with complaints of abdominal pain. The patient was admitted in a serious condition. Overnight remained stable though. There is no further complaints of abdominal pain. He is alert and pleasant. He was noted to have aspiration, now on modified liquids Abdominal pain Appears resolved. CT of the abdomen and pelvis showed no acute concern. There was stool impaction noted. We will use Senokot Multilobar Pneumonia with possible sepsis on admission Pneumonia as seen on CT, the patient was hypotensive on admission. This improved with IV fluids. Lactic acid levels were elevated. For healthcare related or possible aspiration pneumonia started on Zosyn. Sputum culture pending Blood culture pending Dysphasia swallow study suggested thickened liquids Chronic congestive heart failure On CT there was no sign of acute CHF on admission We will have to balance fluid status and blood pressure. Continue diuretics. Acute hypoxemic respiratory failure secondary to pneumonia Continue oxygen as supplement as needed, nebulizer treatments History of hypotension Has been chronically on midodrine Well continue that Have to balance blood pressure with midodrine, Lasix, metoprolol History of coronary artery disease With mild elevation in troponins. This is likely due to stress from hypoxemia, tachycardia, hypotension and infection. We will continue treatment with aspirin, Lipitor, Plavix, metoprolol Already on anticoagulation with Coumadin Atrial fibrillation Rate control will be with metoprolol Chronic anticoagulation with Coumadin for A. fib Target INR between 2 and 3 CODE STATUS DNR and DNI Discussed with Dr. Robbins
[2017-10-26] MEDS: Midodrine 2.5 MG Tab PO SCH ×2 (11:25→18:09)
[2017-10-26] MEDS: Aspirin 81 MG Tab.EC PO SCH (11:29)
[2017-10-26] MEDS: Clopidogrel 75 MG Tab PO SCH (11:29)
[2017-10-26] MEDS: Metoprolol Succinate 25 MG Tab.ER PO SCH (14:03)
[2017-10-26] MEDS: Non-Formulary Medication 1 Each (Ipratropium Bromide [Ipratropium Bromide] 2 SPRAYS) NASBOTH SCH (20:32)
[2017-10-27] MEDS: Sodium Chloride 0.9% 10 ML Syringe FLUSH PRN ×4 (00:29→06:40)
[2017-10-27] MEDS: Morphine 2 MG/ML Syringe IVPUSH PRN (00:30)
[2017-10-27] MEDS: LORazepam 2 MG/ML Syringe IVPUSH PRN ×2 (01:20→10:20)
[2017-10-27] MEDS: Non-Formulary Medication 1 Each (Ipratropium Bromide [Ipratropium Bromide] 2 SPRAYS) NASBOTH SCH (04:47)
[2017-10-27] MEDS: Pantoprazole 40 MG Tab.CR PO SCH (05:31)
[2017-10-27] MEDS: Piperacillin/Tazobactam 3.375 GM in Sodium Chloride 0.9% 100 ML IV SCH (05:36)
[2017-10-27] MEDS ORDERED: Ibuprofen 400 MG Tab PO PRN (06:40)
[2017-10-27] MEDS: Metoprolol Succinate 25 MG Tab.ER PO SCH ×2 (06:53→08:34)
[2017-10-27] MEDS: Albuterol/Ipratropium 3.0-0.5 MG/3 ML Neb Soln NEB SCH (07:24)
--- NOTE | 2017-10-27 09:54 | PCM.DCSUM1 ---
Discharge Summary - Hospital Course Free Text/Narrative:: Patient is an 87-year-old gentleman with a history of coronary artery disease, hypotension, atrial fibrillation. The patient was recently hospitalized multiple times and did not really recover from these episodes. The patient was admitted when he presented with abdominal pain. He was noted to have multilobar pneumonia with possible sepsis on admission. The patient was treated with the antibiotics, he was noted to have dysphasia and thickened liquid restriction was suggested. The patient required oxygen. After discussion with the family the POA felt that the patient would only want comfort measures. The patient will be discharged to the shelter with hospice care. - Discharge Data Discharge Date: 10/27/17 Discharge Disposition: DC/Tfer to [facility] 64 Condition: Serious - Discharge Diagnosis/Problem(s) (1) Pneumonia SNOMED Code(s): 390703796 ICD Code: J18.9 - PNEUMONIA, UNSPECIFIED ORGANISM Status: Acute Current Visit: Yes Qualifiers: Pneumonia type: aspiration pneumonia Aspiration pneumonia type: unspecified Laterality: bilateral Lung location: unspecified part of lung Qualified Code(s): J69.0 - Pneumonitis due to inhalation of food and vomit (2) Abdominal pain SNOMED Code(s): 04330155 ICD Code: R10.9 - UNSPECIFIED ABDOMINAL PAIN Status: Acute Current Visit : No Qualifiers: Abdominal location: lower abdomen, unspecified Qualified Code(s): R10.30 - Lower abdominal pain, unspecified - Patient Summary/Data Consults: Consultations 10/25/17 13:12 OT Evaluation and Treatment [CONS] Routine PT Evaluation and Treatment [CONS] Routine 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 [CONS] Routine - Patient Instructions Diet: Usual Diet as Tolerated Activity: As Tolerated - Discharge Plan Prescriptions/Med Rec: Albuterol/Ipratropium [DuoNeb 3.0-0.5 MG/3 ML] 3 ml NEB Q4H PRN #30 neb PRN Reason: shortness of breath/wheezing Morphine [Morphine 10 MG/0.5 ML Oral Syringe] 10 mg PO Q2H #30 syringe Home Medications: Home Meds Acetaminophen [Tylenol Extra Strength] 1,000 mg PO TID tablet 10/27/17 [Rx] Acetaminophen [Tylenol] 650 mg PO Q4H PRN tablet 10/27/17 [Rx] Acetaminophen/HYDROcodone [[place] 325-5 MG] 1 tab PO Q6H PRN tablet 10/27/17 [Rx ] Albuterol/Ipratropium [DuoNeb 3.0-0.5 MG/3 ML] 3 ml NEB Q4H PRN #30 neb [Rx] Morphine [Morphine 10 MG/0.5 ML Oral Syringe] 10 mg PO Q2H #30 syringe 10/27/17 [Rx] Polyethylene Glycol 3350 [MiraLAX] 17 gm PO DAILY PRN packet 10/27/17 [Rx] Forms: ED Department Discharge - Discharge Summary/Plan Comment DC Time >30 min.: Yes (referral to NH, hospice, d/w family) - General Info Date of Service: 10/27/17 - Review of Systems General: Reports: Fever, Weakness Pulmonary: Reports: Shortness of Breath Cardiovascular: Denies: Chest Pain Gastrointestinal: Denies: Abdominal Pain Genitourinary: Reports: Other (hematuria in Boucher cath) - Patient Data Vitals - Most Recent: Last Vital Signs Temp 38.6 C H 10/27/17 06:54 Pulse 130 H 10/27/17 06:53 Resp 28 H 10/27/17 05:30 BP 100/51 L 10/27/17 06:53 Pulse Ox 93 L 10/27/17 05:30 Weight - Most Recent: 59.557 kg I&O - Last 24 hours: Intake & Output 10/26/17 10/27/17 10/27/17 22:59 06:59 14:59 Intake Total 267 350 Output Total 250 225 Balance 17 125 Lab Results - Last 24 hrs: Laboratory Results - last 24 hr 10/27/17 10/27/17 10/27/17 Range/Units 05:55 05:55 05:55 WBC 13.8 H (5.0-10.0) 10^3/uL RBC 2.54 L (4.6-6.2) 10^6/uL Hgb 8.7 L (14.0-18.0) g/dL Hct 27.0 L (40.0-54.0) % MCV 106.3 H (80-100) fL MCH 34.3 H (27.0-34.0) pg MCHC 32.2 L (33.0-35.0) g/dL Plt Count 264 (150-450) 10^3/uL Neut % (Auto) 81.2 H (42.2-75.2) % Lymph % (Auto) 13.4 L (20.5-50.1) % [place] % (Auto) 5.4 (2-8) % Eos % (Auto) 0.0 L (1.0-3.0) % Baso % (Auto) 0.0 (0.0-1.0) % PT 36.5 H D (9.0-12.0) SEC INR 3.8 H (0.9-1.2) Sodium 144 (135-145) mmol/L Potassium 4.0 (3.6-5.0) mmol/L Chloride 108 (101-111) mmol/L Carbon Dioxide 25.0 (21.0-31.0) mmol/L Anion Gap 15.0 BUN 50 H (7-18) mg/dL Creatinine 1.7 H (0.6-1.3) mg/dL Est Cr Clr Drug Dosing 26.28 mL/min Estimated GFR (MDRD) 38 Glucose 105 (74-105) mg/dL Calcium 7.7 L (8.4-10.2) mg/dl RALPH Results - Last 24 hrs: Microbiology 10/25/17 09:35 Aerobic Blood Culture - Preliminary Blood - Venous - Lab Draw NO GROWTH AFTER 2 DAYS Anaerobic Blood Culture - Preliminary NO GROWTH AFTER 2 DAYS 10/25/17 09:28 Aerobic Blood Culture - Preliminary Blood - Venous NO GROWTH AFTER 2 DAYS Anaerobic Blood Culture - Preliminary NO GROWTH AFTER 2 DAYS Med Orders - Current: Current Medications Acetaminophen (Tylenol) 650 mg PO Q4H PRN PRN Reason: Pain (Mild 1-3)/fever Last Admin: 10/27/17 05:30 Dose: 650 mg Acetaminophen (Tylenol Extra Strength) 1,000 mg PO TID LISA Last Admin: 10/26/17 20:27 Dose: 1,000 mg Hydrocodone Bitart/Acetaminophen ([place] 325-5 Mg) 1 tab PO Q6H PRN PRN Reason: Pain Last Admin: 10/25/17 23:10 Dose: 1 tab Albuterol/Ipratropium (Duoneb 3.0-0.5 Mg/3 Ml) 3 ml NEB Q4H PRN PRN Reason: shortness of breath/wheezing Last Admin: 05/16/18 18:36 Dose: 3 ml Albuterol/Ipratropium (Duoneb 3.0-0.5 Mg/3 Ml) 3 ml NEB Q8HRRT [facility] Last Admin: 10/27/17 07:24 Dose: 3 ml Bisacodyl (Dulcolax) 5 mg PO DAILY PRN PRN Reason: Constipation Bisacodyl (Dulcolax) 10 mg RECTAL DAILY PRN PRN Reason: Constipation Last Admin: 10/25/17 15:42 Dose: 10 mg Docusate Sodium (Colace) 100 mg PO BID PRN PRN Reason: Constipation Last Admin: 10/25/17 15:42 Dose: 100 mg Hydrocortisone (Hydrocortisone 2.5% Crm) 0 gm TOP BID PRN PRN Reason: Itching Ibuprofen (Motrin) 400 mg PO Q6H PRN PRN Reason: fever or pain Last Admin: 10/27/17 06:54 Dose: 400 mg Lorazepam (Ativan) 1 mg IVPUSH Q4H PRN PRN Reason: Anxiety Last Admin: 10/27/17 01:20 Dose: 1 mg Magnesium Hydroxide (Milk Of Magnesia) 30 ml PO Q12H PRN PRN Reason: Constipation Methyl Salicylate (Icy Hot Cream) 0 gm TOP Q8H PRN PRN Reason: Pain Morphine Sulfate (Morphine) 2 mg IVPUSH Q2H PRN PRN Reason: Pain (severe 7-10) Last Admin: 10/27/17 00:30 Dose: 2 mg Ondansetron HCl (Zofran) 4 mg IVPUSH Q4H PRN PRN Reason: Nausea/Vomiting Polyethylene Glycol (Miralax) 17 gm PO DAILY PRN PRN Reason: Constipation Last Admin: 10/25/17 15:43 Dose: 17 gm Polyethylene Glycol (Miralax) 17 gm PO DAILY [facility] Last Admin: 10/26/17 11:03 Dose: 17 gm Scopolamine (Transderm-Scop) 1.5 mg TRDERM Q72H [facility] Last Admin: 10/25/17 19:38 Dose: 1.5 mg Senna/Docusate Sodium (Senna Plus) 1 tab PO BID [facility] Last Admin: 10/26/17 20:27 Dose: 1 tab Sodium Chloride (Saline Flush) 10 ml FLUSH ASDIRECTED PRN PRN Reason: Keep Vein Open Last Admin: 10/27/17 06:40 Dose: 10 ml Discontinued Medications Aspirin (Halfprin) 81 mg PO DAILY [facility] Last Admin: 10/26/17 11:29 Dose: 81 mg Atorvastatin Calcium (Lipitor) 40 mg PO BEDTIME [facility] Last Admin: 10/25/17 23:08 Dose: 40 mg Calcium Carbonate (Calcium Carbonate/Vitamin D 1250 Mg-200 Unit) 1 tab PO DAILY [facility] Last Admin: 10/26/17 11:25 Dose: 1 tab Clopidogrel Bisulfate (Plavix) 75 mg PO DAILY [facility] Last Admin: 10/26/17 11:29 Dose: 75 mg Docusate Sodium (Colace) 100 mg PO BID PRN PRN Reason: Constipation Duloxetine HCl (Cymbalta) 30 mg PO DAILY [facility] Last Admin: 10/26/17 11:28 Dose: 30 mg Furosemide (Lasix) 20 mg PO BIDDIURETIC [facility] Last Admin: 10/25/17 14:58 Dose: Not Given Furosemide (Lasix) 20 mg IVPUSH ONETIME ONE Stop: 10/25/17 13:22 Last Admin: 10/25/17 14:10 Dose: 20 mg Furosemide (Lasix) 20 mg PO BIDDIURETIC [facility] Last Admin: 10/26/17 18:09 Dose: 20 mg Gabapentin (Neurontin) 100 mg PO TID [facility] Last Admin: 10/26/17 20:27 Dose: 100 mg Piperacillin Sod/Tazobactam (Sod 3.375 gm/ Sodium Chloride) 100 mls @ 200 mls/ hr IV ONETIME ONE Stop: 10/25/17 11:21 Last Admin: 10/25/17 11:09 Dose: 200 mls/hr Sodium Chloride (Normal Saline) 1,000 mls @ 999 mls/hr IV .BOLUS ONE Stop: 10/25/17 11:53 Last Admin: 10/25/17 10:57 Dose: 999 mls/hr Piperacillin Sod/Tazobactam (Sod 3.375 gm/ Sodium Chloride) 100 mls @ 200 mls/ hr IV Q6HR [facility] Last Infusion: 10/27/17 06:41 Dose: Infused Metoprolol Succinate (Toprol Xl) 12.5 mg PO DAILY [facility] Last Admin: 10/27/17 08:34 Dose: Not Given Midodrine (Midodrine) 5 mg PO BID [facility] Last Admin: 10/25/17 23:08 Dose: 5 mg Midodrine (Midodrine) 5 mg PO 0800,1700 [facility] Last Admin: 10/26/17 18:09 Dose: 5 mg Morphine Sulfate (Morphine) 2 mg IVPUSH ONETIME ONE Stop: 10/25/17 10:11 Last Admin: 10/25/17 10:54 Dose: 2 mg Non-Formulary Medication (Fish Oil/[place]-3 Fatty Acids [Fish Oil 1,000 Mg]) 1, 000 mg PO BID [facility] Non-Formulary Medication (Ipratropium [place] [Ipratropium [place]]) 2 sprays NASBOTH TID [facility] Last Admin: 10/27/17 04:47 Dose: Not Given Pantoprazole Sodium (Protonix) 40 mg PO ACBRK [facility] Last Admin: 10/27/17 05:31 Dose: 40 mg Senna/Docusate Sodium (Senna Plus) 1 tab PO BID [facility] Last Admin: 10/26/17 11:28 Dose: 1 tab Warfarin Sodium (Coumadin) 5 mg PO DAILY [facility] Warfarin Sodium (Pharmacy To Dose - Warfarin) 1 dose .XX ASDIRECTED [facility] Warfarin Sodium (Coumadin) 5 mg PO ONETIME ONE Stop: 10/25/17 14:31 Last Admin: 10/25/17 15:42 Dose: 5 mg Warfarin Sodium (Coumadin) 3 mg PO ONETIME ONE Stop: 10/26/17 14:01 Last Admin: 10/26/17 13:58 Dose: 3 mg - Exam Quality Assessment: Reports: Supplemental Oxygen General: Reports: Alert. Denies: Oriented Neck: Reports: Supple Lungs: Reports: Other (tachypnea) Cardiovascular: Reports: Regular Rate, Regular Rhythm, Tachycardia (Male) Exam: Other (boucher cath) Extremities: No Pedal Edema Skin: Reports: Warm, Dry *Q Meaningful Use (DIS) - VTE *Q VTE Anticoagulation Contraindications: Alternative [place] Request PT
[2017-10-27] MEDS: Polyethylene Glycol 3350 Powder 17 GM Packet PO SCH (10:27)
[2017-10-27] MEDS: Acetaminophen 500 MG Tab PO SCH (10:27)
[2017-10-27 11:10] VITALS: BP 81/48
[2017-10-27] MEDS: Furosemide 20 MG Tab PO SCH (14:38)
[2017-10-27] MEDS: Midodrine 2.5 MG Tab PO SCH (14:38)
[2017-10-27] MEDS: Clopidogrel 75 MG Tab PO SCH (14:39)
[2017-10-27] MEDS: Aspirin 81 MG Tab.EC PO SCH (14:39)
[2017-10-27] MEDS: Gabapentin 100 MG Cap PO SCH (14:39)
== END 2017-10-27 11:00 | DRG 871 ==
LOC: DL.ED 09:49 → DL.MS 11:59 → UNDOADMIN 11:59 → DL.MS 13:12
PROVIDERS: ADMIT Internal Medicine; ATTEND Internal Medicine
DX: A41.9 Sepsis, unspecified organism (principal); R09.02 Hypoxemia; J69.0 Pneumonitis due to inhalation of food and vomit; J96.01 Acute respiratory failure with hypoxia; I25.10 Atherosclerotic heart disease of native coronary artery without angina pectoris; H54.7 Unspecified visual loss; H91.90 Unspecified hearing loss, unspecified ear; I48.91 Unspecified atrial fibrillation; E78.00 Pure hypercholesterolemia, unspecified; I50.9 Heart failure, unspecified; I11.0 Hypertensive heart disease with heart failure; J84.10 Pulmonary fibrosis, unspecified; K21.9 Gastro-esophageal reflux disease without esophagitis; K40.90 Unilateral inguinal hernia, without obstruction or gangrene, not specified as recurrent; N42.9 Disorder of prostate, unspecified; E11.9 Type 2 diabetes mellitus without complications; D64.9 Anemia, unspecified; E78.5 Hyperlipidemia, unspecified; K57.90 Diverticulosis of intestine, part unspecified, without perforation or abscess without bleeding; I35.0 Nonrheumatic aortic (valve) stenosis; K59.00 Constipation, unspecified; R47.02 Dysphasia; R74.8 Abnormal levels of other serum enzymes; M25.551 Pain in right hip; R06.82 Tachypnea, not elsewhere classified; R10.11 Right upper quadrant pain; R00.0 Tachycardia, unspecified; R06.02 Shortness of breath; R00.1 Bradycardia, unspecified; R05 Cough; Z51.5 Encounter for palliative care; I25.2 Old myocardial infarction; Z88.8 Allergy status to other drugs, medicaments and biological substances; Z79.01 Long term (current) use of anticoagulants; Z95.0 Presence of cardiac pacemaker; Z79.82 Long term (current) use of aspirin; Z95.1 Presence of aortocoronary bypass graft; Z87.891 Personal history of nicotine dependence; Z79.02 Long term (current) use of antithrombotics/antiplatelets; Z66 Do not resuscitate; Z79.899 Other long term (current) drug therapy; Z90.49 Acquired absence of other specified parts of digestive tract; Z28.21 Immunization not carried out because of patient refusal
CPT/HCPCS: 36415; 74176; 80053; 83605; 83880; 85025; 85610; 87040 ×2; 96374; 96375; 99285; J2270; J2543; J7030; J7050; 36600; 51702; 80048; 80305; 81001; 82803; 83735; 84100; 84484; 85027; 92526-GN; 92610-GN; 94010; 94640; 94667; 97162-GP; 97165-GO; A9270-GY; J1940; J2060